=== PATIENT | female | born 1945 | race Hispanic/Latino ===

== ENCOUNTER 2017-11-19 11:08 | Inpatient (IN) | payer MEDICARE ==
[~2017-11-19] VITALS: Ht 144.8 cm; Wt 83.0 kg
[~2017-11-19 11:08] MED LIST: ASPIRIN EC81 MG PO; ATORVASTATIN CA20 MG PO; BACID PO; CLONIDINE HCL0.1 MG PO; FENOFIBRATE PO; GABAPENTIN300 MG PO; GLIMEPIRIDE1 MG PO; LISINOPRIL40 MG PO; LOSARTAN POTAS100 MG PO; LOVASTATIN40 MG PO; NIFEDIPINE ER30 M1 PO; PRESERVISION T1 EACH PO; ULTRAM 50MG50 MG PO; Z DIFLUCAN PO; Z.0.CEFTIN500 MG PO; Z.0.CRESTOR40 MG PO; Z.0.GLYBURIDE2.5 MG PO; Z.0.KLOR-CON M2020 M PO; Z.0.TRIBENZOR 20-51
--- OUTSIDE RECORDS SUMMARY | 2017-11-19 11:13 | XMS REPORT ---
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 Allergies, Adverse Reactions, Alerts This patient has no known allergies or adverse reactions. Medications This patient has no known medications. Results Test Description Test Time Test Comments Text Results Atomic Results Result Comments CT ABDOMEN/PELVIS WO [place] [address] Patient Name: LANA TAN MR #: [id number] : 1945 Age/Sex: 72/F Req #: [id number] Adm Physician: Ordered by: TRENT ADAMS MD Report #: [id number] Location: MRI Room/Bed: Procedure: [id number] CT/CT ABDOMEN/PELVIS WO Exam Date: 06/14/17 Exam Time: 1110 REPORT STATUS: Signed CORRECTION Corrected on: 11/19/2017; Dictated by: Hal Valdivia M.D. on 11/19/2017 at 10: 24 Electronically approved by: Hal Valdivia M.D. on 11/19/2017 at 10:24 PROCEDURE: CT ABDOMEN AND PELVIS WITHOUT CONTRAST TECHNIQUE: The abdomen and pelvis were scanned utilizing a multidetector helical scanner from the diaphragm to the lesser trochanter. No oral or intravenous contrast was administered per renal stone protocol. Coronal and sagittal multiplanar reformations were obtained. COMPARISON: MRI of the abdomen without contrast subsequently performed 06/14/2017. INDICATIONS : CALCULUS OF KIDNEY FINDINGS: ABSENCE OF INTRAVENOUS CONTRAST DECREASES SENSITIVITY FOR DETECTION OF FOCAL LESIONS AND VASCULAR PATHOLOGY. LOWER THORAX: Adjacent 4 and 5 mm nodules along the right major fissure likely represent intrapulmonary lymph nodes. Linear atelectasis in the lower lobes. Coronary artery calcifications.. HEPATOBILIARY: No focal hepatic lesion or intrahepatic biliary ductal dilatation. Large radiopaque gallbladder calculi. SPLEEN: No splenomegaly. 1.6 centimeter hypoattenuating lesion in the posterolateral spleen has average internal attenuation 30 Hounsfield units. PANCREAS: No focal mass or ductal dilatation. ADRENALS: 3.4 cm ovoid nodule in the medial limb of the left adrenal gland has average internal attenuation -1 Hounsfield unit. 2.7 cm low attenuation nodule in the medial limb of the right adrenal gland has average internal attenuation -1 Hounsfield unit. KIDNEYS/URETERS: No hydronephrosis. Punctate bilateral nonobstructing renal calculi. 4.3 cm exophytic, macroscopic fat containing mass projecting from the interpolar region of the left kidney. Scattered low attenuation lesions, all of which have average internal attenuation less than 20 Hounsfield units, throughout the kidneys. The largest left-sided lesion measures 2.7 cm projecting from the upper pole. The largest right-sided lesion appears 5.6 cm, projecting exophytically from the lower pole. No ureteral or bladder calculi. PELVIC ORGANS/BLADDER: The urinary bladder is unremarkable. The right ovary is prominent for age, measuring 4.7 x 4.3 cm. Left ovary appears normal. The uterus is not identified and has likely been removed. PERITONEUM / RETROPERITONEUM: No ascites. No pneumoperitoneum. LYMPH NODES: No pelvic sidewall, retroperitoneal , or mesenteric lymphadenopathy. VESSELS: Atherosclerotic calcification of the abdominal aorta and major branch vessels without aneurysmal dilatation. Evaluation is otherwise limited in the absence of intravenous contrast. GI TRACT: The large bowel shows no distention or wall thickening. There are innumerable sigmoid diverticula without adjacent inflammatory change. The appendix is normal. There is no small bowel dilatation to suggest obstruction. BONES AND SOFT TISSUES: Postsurgical changes of the anterior abdominal wall. Partially visualized asymmetry in the right breast measures 1.9 cm as seen on series 3 image 2. Otherwise no focal soft tissue abnormalities. No osseous destructive lesions. Multilevel degenerative disc disease and degenerative facet arthropathy of the lumbar spine with associated scoliotic curvature. IMPRESSION: Small bilateral nonobstructing renal calculi. 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 Scattered bilateral renal cysts as above. Benign bilateral adrenal adenomas. Cholelithiasis. Large bowel diverticulosis without evidence of diverticulitis. Prominent right ovary for age. Pelvic ultrasound is suggested to evaluate for presence of adnexal mass. Right fissural pulmonary nodules likely represent intrapulmonary lymph nodes. A CT scan of the chest without contrast is suggested in one year to assess for stability if the patient has a history of tobacco use or is at high risk of malignancy. Atherosclerotic vascular disease. Focal asymmetry in the right breast should be correlated with mammography. 1.6 cm indeterminate hypoattenuating splenic lesion may represent a hemangioma. Refer to the report for MRI of the abdomen subsequently performed for further details. Dictated by: Douglas Jay M.D. on 2016 at 11:56 Electronically approved by: Douglas Jay M.D. on 2016 at 11:56 Dictated By: HAL VALDIVIA MD 1024 Transcribed By: TAISHA on 11/19/17 1024 COPY TO: TRENT ADAMS MD
[2017-11-19] MEDS ORDERED: CEFAZOLIN SOD 1 GM VIAL ONE (11:37)
--- NOTE | 2017-11-19 12:12 | Diagnostic Imaging Report ---
PROCEDURE: Frontal and lateral views of the chest. COMPARISON: None. INDICATIONS: PRE-OP, RENAL SURGERY. DENIES CHEST COMPLAINTS FINDINGS: Lines/tubes: None. Lungs: The lungs are well inflated and clear. There is no evidence of pneumonia or pulmonary edema. Pleura: There is no pleural effusion or pneumothorax. Mild blunting of the right costophrenic angle is likely related to scarring. Heart and mediastinum: Normal heart size. Tortuous, atherosclerotic thoracic aorta. Small hiatal hernia is likely present. Bones: No acute bony abnormality. Multilevel degenerative changes of the thoracic spine. IMPRESSION: 1. No acute cardiopulmonary disease. Dictated by: Luis Em M.D. on 11/19/2017 at 12:13 Electronically approved by: Luis Em M.D. on 11/19/2017 at 12:13
[2017-11-19] MEDS ORDERED: GELATIN SPONGE SZ 100 ONE (12:27)
[2017-11-19] MEDS ORDERED: MANNITOL 25% 12.5GM/50ML 50 ML ONE (12:27)
[2017-11-19 12:39] LABS: BASOPHILS % 0.3 % (0.0-1.0); EOSINOPHILS # (AUTO) 0.1 (0.0-0.4); EOSINOPHILS % 0.8 % (0.0-6.0); HEMOGLOBIN 12.2 g/dL (12.0-16.0); LYMPHOCYTES # (AUTO) 1.8 (1.0-3.2); LYMPHOCYTES % 15.5 % (18.0-39.1); MEAN CORPUSCULAR HEMOGLOBIN 31.6 pg (28-32); MEAN CORPUSCULAR HGB CONC 33.9 g/dL (31-35); MEAN CORPUSCULAR VOLUME 93.3 fL (81-99); MONOCYTES # (AUTO) 0.5 (0.2-0.8); MONOCYTES % 3.9 % (4.4-11.3); NEUTROPHILS # (AUTO) 9.1 (2.1-6.9); NEUTROPHILS % 77.8 % (38.7-80.0); PLATELET COUNT 162 x10e3/uL (140-360); RED BLOOD COUNT 3.86 x10e6/uL (3.6-5.1)
[2017-11-19 12:55] LABS: ANION GAP 15.2 mmol/L (8-16); CALCIUM 9.5 mg/dL (8.4-10.2); CREATININE, SERUM 2.62 mg/dL (0.57-1.11); POTASSIUM 4.2 mmol/L (3.5-5.1)
[2017-11-19] MEDS: D5.45%NS/KCL 20MEQ 1,000 ML IV SCH ×2 (15:38→23:38)
[2017-11-19] MEDS: MORPHINE SULFATE 1 MG/ML 30ML PCA IV PRN ×2 (15:40→22:23)
[2017-11-19] MEDS ORDERED: DIPHENHYDRAMINE HCL INJ 50 MG/ML VIAL IM PRN (15:45)
[2017-11-19] MEDS: SODIUM CHLORIDE 0.9% 250ML IRRIG IR SCH ×2 (15:45→20:26)
[2017-11-19] MEDS ORDERED: ONDANSETRON HCL INJ 2 MG/ML VIAL IV PRN (15:45)
[2017-11-19] MEDS ORDERED: NALOXONE HCL INJ 0.4 MG/ML AMP IV PRN (15:45)
[2017-11-19] MEDS ORDERED: ACETAMINOPHEN 1000 MG/100 ML IV PRN (15:45)
--- NOTE | 2017-11-19 16:30 | Diagnostic Imaging Report ---
PROCEDURE: A single AP view of the chest. COMPARISON: Same day chest radiograph INDICATIONS: POST OP NEPHRECTOMY. R/O PNEUMOTHORAX FINDINGS: Lines/tubes: Enteric tube has its tip in the stomach. There are surgical clips in the left upper abdomen. Lungs: The lung volumes are low. There are streaky opacities in the right upper lobe. Pleura: There is no pleural effusion or pneumothorax. Heart and mediastinum: The heart and the mediastinum are unremarkable. Bones: No acute bony abnormality. IMPRESSION: No evidence of pneumothorax. Streaky opacities in the right upper lobe may represent atelectasis or aspiration. Dictated by: Luis Em M.D. on 11/19/2017 at 16:31 Electronically approved by: Luis Em M.D. on 11/19/2017 at 16:31
[2017-11-19] MEDS: DOCUSATE SODIUM 100 MG CAP PO SCH (17:00)
[2017-11-19 17:45] VITALS: BP 156/84
[2017-11-19 17:46] VITALS: BP 156/84
[2017-11-19 18:00] VITALS: BP 153/75
[2017-11-19] MEDS ORDERED: FENTANYL CITRATE/PF 100MCG/2 ML INJ ONE (18:33)
[2017-11-19] MEDS ORDERED: MIDAZOLAM HCL 2 MG/2 ML VIAL ONE (18:33)
[2017-11-19 20:00] VITALS: BP 160/92
[2017-11-19] MEDS ORDERED: CEFAZOLIN SOD 1 GM/NS 50ML 50 ML IV SCH (22:00)
[2017-11-19] MEDS: CEFAZOLIN SOD 1 GM VIAL IV SCH (22:19)
[2017-11-20] VITALS (7 sets, daily range): BP systolic 148–171; BP diastolic 63–86
[2017-11-20] MEDS: SODIUM CHLORIDE 0.9% 250ML IRRIG IR SCH ×3 (00:04→08:45)
[2017-11-20 06:36] LABS: BASOPHILS % 0.2 % (0.0-1.0); HEMATOCRIT 30.1 % (34.2-44.1); HEMOGLOBIN 9.8 g/dL (12.0-16.0); LYMPHOCYTES # (AUTO) 0.7 (1.0-3.2); LYMPHOCYTES % 6.3 % (18.0-39.1); MEAN CORPUSCULAR HEMOGLOBIN 31.7 pg (28-32); MEAN CORPUSCULAR HGB CONC 32.6 g/dL (31-35); MEAN CORPUSCULAR VOLUME 97.4 fL (81-99); MONOCYTES # (AUTO) 1.1 (0.2-0.8); MONOCYTES % 9.3 % (4.4-11.3); NEUTROPHILS # (AUTO) 9.7 (2.1-6.9); NEUTROPHILS % 83.4 % (38.7-80.0); PLATELET COUNT 190 x10e3/uL (140-360); RED BLOOD COUNT 3.09 x10e6/uL (3.6-5.1); RED CELL DISTRIBUTION WIDTH 14.2 % (11.7-14.4)
[2017-11-20] MEDS: CEFAZOLIN SOD 1 GM VIAL IV SCH ×3 (07:02→21:44)
[2017-11-20 07:13] LABS: ANION GAP 15.3 mmol/L (8-16); CALCIUM 8.3 mg/dL (8.4-10.2); CREATININE, SERUM 2.85 mg/dL (0.57-1.11); POTASSIUM 5.3 mmol/L (3.5-5.1)
[2017-11-20] MEDS: D5.45%NS/KCL 20MEQ 1,000 ML IV SCH (07:38)
[2017-11-20] MEDS: DOCUSATE SODIUM 100 MG CAP PO SCH ×2 (08:45→17:05)
[2017-11-20] MEDS ORDERED: DEXTROSE 5%/0.45% SOD CHL 1,000 ML IV ONE (09:44)
[2017-11-20] MEDS: DEXTROSE 5%/0.45% SOD CHL 1,000 ML IV SCH ×2 (09:50→17:16)
[2017-11-20] MEDS: MORPHINE SULFATE 1 MG/ML 30ML PCA IV PRN (11:49)
[2017-11-20] MEDS ORDERED: HYDRALAZINE HCL 20 MG/ML VIAL IV PRN (12:15)
[2017-11-20] MEDS ORDERED: DEXTROSE 50% SYRINGE 50 ML IV PRN (12:15)
[2017-11-20] MEDS ORDERED: ACETAMINOPHEN 325 MG SUPP PR PRN (12:15)
[2017-11-20] MEDS ORDERED: SOD POLYSTYRENE SULFONATE SUSP 15 GM/60 ML BTL PO NR (12:30)
[2017-11-20] MEDS ORDERED: SOD POLYSTYRENE SULFONATE SUSP 15 GM/60 ML BTL PR NR (12:30)
[2017-11-20] MEDS ORDERED: CLONIDINE HCL 0.1 MG TAB PO SCH (17:00)
[2017-11-20] MEDS: INSULIN LISPRO 100 UNIT/1 ML 3ML VIAL SQ SCH (17:36)
[2017-11-20] MEDS ORDERED: EPHEDRINE SULFATE INJ 50 MG/10 ML SYR ONE (19:42)
[2017-11-20] MEDS ORDERED: NEOSTIGMINE 5 MG/5ML SYR ONE (19:42)
[2017-11-20] MEDS ORDERED: ROCURONIUM BROMIDE 10 MG/ML 5ML VIAL ONE (19:42)
[2017-11-20] MEDS ORDERED: ONDANSETRON HCL INJ 2 MG/ML VIAL ONE (19:42)
[2017-11-20] MEDS ORDERED: GLYCOPYRROLATE INJ 1MG/ 5 ML SYR ONE (19:42)
[2017-11-20] MEDS ORDERED: LIDOCAINE HCL 2% LOCAL INJ 5 ML SDV VIAL INJ ONE (19:42)
[2017-11-20] MEDS ORDERED: DEXAMETHASONE SOD PHOS INJ 4 MG/ML VIAL ONE (19:42)
[2017-11-20] MEDS ORDERED: SEVOFLURANE INHAL SOLN 250 ML PEN BTL ONE (19:42)
[2017-11-20] MEDS ORDERED: PROPOFOL IV EMULSION 10 MG/ML 20 ML VIAL ONE (19:42)
[2017-11-20] MEDS ORDERED: ATORVASTATIN 20 MG TAB PO SCH (21:00)
[2017-11-20] MEDS: ATORVASTATIN 40 MG TAB PO SCH (21:44)
[2017-11-20] MEDS: ONDANSETRON HCL INJ 2 MG/ML VIAL IV PRN (22:15)
[2017-11-21] MEDS: INSULIN LISPRO 100 UNIT/1 ML 3ML VIAL SQ SCH ×4 (01:28→17:57)
[2017-11-21] MEDS: DEXTROSE 5%/0.45% SOD CHL 1,000 ML IV SCH ×3 (02:56→16:50)
[2017-11-21 04:00] VITALS: BP_SYST 156; BP_SYST 159; BP_DIAS 77; BP_DIAS 78
[2017-11-21] MEDS: CEFAZOLIN SOD 1 GM VIAL IV SCH ×3 (04:26→20:38)
[2017-11-21 06:12] LABS: BASOPHILS % 0.3 % (0.0-1.0); EOSINOPHILS % 0.1 % (0.0-6.0); HEMATOCRIT 30.9 % (34.2-44.1); HEMOGLOBIN 9.7 g/dL (12.0-16.0); LYMPHOCYTES # (AUTO) 0.9 (1.0-3.2); LYMPHOCYTES % 6.3 % (18.0-39.1); MEAN CORPUSCULAR HEMOGLOBIN 31.1 pg (28-32); MEAN CORPUSCULAR HGB CONC 31.4 g/dL (31-35); MONOCYTES # (AUTO) 1.3 (0.2-0.8); MONOCYTES % 9.5 % (4.4-11.3); NEUTROPHILS # (AUTO) 11.3 (2.1-6.9); NEUTROPHILS % 80.9 % (38.7-80.0); PLATELET COUNT 167 x10e3/uL (140-360); RED BLOOD COUNT 3.12 x10e6/uL (3.6-5.1); RED CELL DISTRIBUTION WIDTH 14.6 % (11.7-14.4)
[2017-11-21 06:31] LABS: ANION GAP 12.9 mmol/L (8-16); CREATININE, SERUM 2.81 mg/dL (0.57-1.11); POTASSIUM 4.9 mmol/L (3.5-5.1)
[2017-11-21 06:49] LABS: FREE T4 (FREE THYROXINE) 1.44 ng/dL (0.9-1.8); THYROID STIMULATING HORMONE 0.473 uIU/mL (0.350-4.940)
[2017-11-21] MEDS: CLONIDINE HCL 0.1 MG TAB PO SCH ×2 (10:01→16:50)
[2017-11-21] MEDS: DOCUSATE SODIUM 100 MG CAP PO SCH ×2 (10:01→16:50)
[2017-11-21] MEDS: NIFEDIPINE CR 30 MG TAB PO SCH (10:02)
[2017-11-21 10:57] LABS: CLARITY,URINE CLOUDY (CLEAR); COLOR,URINE YELLOW (YELLOW); LEUKOCYTE ESTERASE ,URINE NEGATIVE (NEGATIVE); NITRITE,URINE NEGATIVE (NEGATIVE); PROTEIN,URINE DIPSTICK 3+ (NEGATIVE)
[2017-11-21 10:58] LABS: BILIRUBIN,URINE NEGATIVE (NEGATIVE); KETONES,URINE NEGATIVE (NEGATIVE); URINE UROBILINOGEN 0.2 mg/dL (0.2 - 1)
[2017-11-21 10:59] LABS: AMORPHOUS SEDIMENT,URINE RARE (FEW); EPITHELIAL CELLS,URINE RARE /LPF
[2017-11-21 11:00] LABS: YEAST,URINE FEW
[2017-11-21] MEDS ORDERED: DIPHENHYDRAMINE HCL INJ 50 MG/ML VIAL IV PRN (11:00)
[2017-11-21 11:01] LABS: BACTERIA,URINE FEW /HPF
[2017-11-21] MEDS: GUAIFENESIN 600 MG TAB PO SCH ×2 (12:57→17:57)
[2017-11-21] MEDS: LABETALOL HCL 5 MG/ML 20ML VIAL IV PRN ×2 (13:19→20:38)
[2017-11-21 13:49] VITALS: BP 164/76
[2017-11-21 13:50] VITALS: BP 164/76
--- NOTE | 2017-11-21 15:16 | Diagnostic Imaging Report ---
PROCEDURE: A single AP view of the chest. COMPARISON: Chest radiograph 11/19/2017 INDICATIONS: PNEUMONIA FINDINGS: Lines/tubes: Interval removal of an enteric tube. Lungs: The lungs are poorly inflated. Resolution of the streaky opacities in the right upper lobe. New small retrocardiac opacity. Pleura: There is no pleural effusion or pneumothorax. Heart and mediastinum: Aortic arch calcifications. The heart and the mediastinum are otherwise unremarkable. Bones: No acute bony abnormality. Upper abdomen: Surgical clips overlie the left upper quadrant. IMPRESSION: 1. Resolution of the right upper lobe streaky opacities suggesting atelectasis. 2. Small retrocardiac opacity may represent atelectasis given low lung volumes, developing pneumonia, or aspiration. Consider repeat two-view chest radiograph with improved inspiratory effort. Dictated by: Ervin Frederick M.D. on 11/21/2017 at 15:17 Electronically approved by: Ervin Frederick M.D. on 11/21/2017 at 15:17
[2017-11-21 16:16] VITALS: BP 178/73
[2017-11-21 20:00] VITALS: BP 169/71
[2017-11-21 20:12] VITALS: BP 169/71
[2017-11-21] MEDS: ATORVASTATIN 40 MG TAB PO SCH (20:38)
[2017-11-21] MEDS ORDERED: ATORVASTATIN 20 MG TAB PO SCH (21:00)
[2017-11-22] VITALS (8 sets, daily range): BP systolic 119–174; BP diastolic 56–74
[2017-11-22] MEDS: GUAIFENESIN 600 MG TAB PO SCH ×4 (00:33→17:33)
[2017-11-22] MEDS: LABETALOL HCL 5 MG/ML 20ML VIAL IV PRN (00:33)
[2017-11-22] MEDS: INSULIN LISPRO 100 UNIT/1 ML 3ML VIAL SQ SCH ×5 (00:48→21:30)
[2017-11-22] MEDS: DEXTROSE 5%/0.45% SOD CHL 1,000 ML IV SCH ×2 (02:26→12:55)
[2017-11-22] MEDS: CEFAZOLIN SOD 1 GM VIAL IV SCH ×3 (04:51→19:40)
[2017-11-22 06:40] LABS: BASOPHILS % 0.3 % (0.0-1.0); EOSINOPHILS # (AUTO) 0.1 (0.0-0.4); EOSINOPHILS % 0.5 % (0.0-6.0); HEMATOCRIT 25.9 % (34.2-44.1); HEMOGLOBIN 8.2 g/dL (12.0-16.0); LYMPHOCYTES # (AUTO) 0.6 (1.0-3.2); LYMPHOCYTES % 6.1 % (18.0-39.1); MEAN CORPUSCULAR HEMOGLOBIN 31.4 pg (28-32); MEAN CORPUSCULAR HGB CONC 31.7 g/dL (31-35); MEAN CORPUSCULAR VOLUME 99.2 fL (81-99); MONOCYTES # (AUTO) 0.8 (0.2-0.8); MONOCYTES % 8.3 % (4.4-11.3); NEUTROPHILS # (AUTO) 8.2 (2.1-6.9); NEUTROPHILS % 81.9 % (38.7-80.0); PLATELET COUNT 143 x10e3/uL (140-360); RED BLOOD COUNT 2.61 x10e6/uL (3.6-5.1); RED CELL DISTRIBUTION WIDTH 14.6 % (11.7-14.4)
[2017-11-22 06:56] LABS: ANION GAP 12.8 mmol/L (8-16); CALCIUM 8.7 mg/dL (8.4-10.2); CREATININE, SERUM 2.48 mg/dL (0.57-1.11); POTASSIUM 4.8 mmol/L (3.5-5.1)
[2017-11-22] MEDS: NIFEDIPINE CR 30 MG TAB PO SCH (08:11)
[2017-11-22] MEDS: DOCUSATE SODIUM 100 MG CAP PO SCH ×2 (08:11→17:33)
[2017-11-22] MEDS: CLONIDINE HCL 0.1 MG TAB PO SCH (08:11)
[2017-11-22] MEDS: CLONIDINE HCL 0.2 MG TAB PO SCH ×2 (08:22→17:33)
[2017-11-22] MEDS ORDERED: CLONIDINE HCL 0.1 MG TAB PO ONE (08:30)
[2017-11-22] MEDS ORDERED: BISACODYL 10 MG SUPP PR PRN (08:45)
[2017-11-22] MEDS ORDERED: BISACODYL 10 MG SUPP PR NR (09:00)
[2017-11-22] MEDS: ACETAMINOPHEN/CODEINE 300MG - 30MG TAB PO PRN (09:37)
[2017-11-22 11:35] LABS: ANISOCYTOSIS SLIGHT; BAND NEUTROPHILS % (MANUAL) 1 %; EOSINOPHILS % (MANUAL) 1 % (0-7); HYPOCHROMASIA SLIGHT; LYMPHOCYTES % (MANUAL) 5 % (19-48); MONOCYTES % (MANUAL) 7 % (3.4-9.0); MYELOCYTES % (MANUAL) 3 % (0-0); NEUTROPHILS % (MANUAL) 83 % (40-74); PLATELET ESTIMATE SLIGHTLY DECREASED; PLATELET MORPHOLOGY COMMENT FEW LARGE
[2017-11-22 11:36] LABS: RBC MORPHOLOGY COMMENT NORMAL
[2017-11-22] MEDS: ATORVASTATIN 40 MG TAB PO SCH (21:30)
[2017-11-23] VITALS (7 sets, daily range): BP systolic 112–158; BP diastolic 55–73
[2017-11-23] MEDS: GUAIFENESIN 600 MG TAB PO SCH ×4 (00:49→17:27)
[2017-11-23] MEDS: CEFAZOLIN SOD 1 GM VIAL IV SCH ×3 (05:00→21:26)
[2017-11-23] MEDS: DEXTROSE 5%/0.45% SOD CHL 1,000 ML IV SCH ×2 (05:09→17:15)
[2017-11-23 06:10] LABS: BASOPHILS % 0.4 % (0.0-1.0); EOSINOPHILS # (AUTO) 0.2 (0.0-0.4); EOSINOPHILS % 2.6 % (0.0-6.0); HEMATOCRIT 25.2 % (34.2-44.1); HEMOGLOBIN 8.1 g/dL (12.0-16.0); LYMPHOCYTES # (AUTO) 0.8 (1.0-3.2); LYMPHOCYTES % 10.7 % (18.0-39.1); MEAN CORPUSCULAR HEMOGLOBIN 31.3 pg (28-32); MEAN CORPUSCULAR HGB CONC 32.1 g/dL (31-35); MEAN CORPUSCULAR VOLUME 97.3 fL (81-99); MONOCYTES # (AUTO) 0.7 (0.2-0.8); MONOCYTES % 9.7 % (4.4-11.3); NEUTROPHILS # (AUTO) 5.4 (2.1-6.9); PLATELET COUNT 137 x10e3/uL (140-360); RED BLOOD COUNT 2.59 x10e6/uL (3.6-5.1); RED CELL DISTRIBUTION WIDTH 14.1 % (11.7-14.4)
[2017-11-23 06:29] LABS: ANION GAP 11.7 mmol/L (8-16); CALCIUM 8.6 mg/dL (8.4-10.2); CREATININE, SERUM 2.34 mg/dL (0.57-1.11); POTASSIUM 3.7 mmol/L (3.5-5.1)
[2017-11-23 07:17] LABS: EOSINOPHILS % (MANUAL) 1 % (0-7); LYMPHOCYTES % (MANUAL) 10 % (19-48); MONOCYTES % (MANUAL) 8 % (3.4-9.0); MYELOCYTES % (MANUAL) 1 % (0-0); NEUTROPHILS % (MANUAL) 80 % (40-74); PLATELET ESTIMATE SLIGHTLY DECREASED; PLATELET MORPHOLOGY COMMENT NORMAL; RBC MORPHOLOGY COMMENT NORMAL
[2017-11-23] MEDS: INSULIN LISPRO 100 UNIT/1 ML 3ML VIAL SQ SCH ×4 (08:46→21:28)
[2017-11-23] MEDS: DOCUSATE SODIUM 100 MG CAP PO SCH ×2 (08:46→17:27)
[2017-11-23] MEDS: CLONIDINE HCL 0.2 MG TAB PO SCH ×2 (08:46→17:25)
[2017-11-23] MEDS: NIFEDIPINE CR 30 MG TAB PO SCH (08:46)
[2017-11-23] MEDS: FLUCONAZOLE 100 MG TAB PO SCH (11:16)
[2017-11-23] MEDS ORDERED: MAGNESIUM SULF 1GRAM/DEXTROSE 100 ML IV ONE (14:00)
[2017-11-23] MEDS: ACETAMINOPHEN/CODEINE 300MG - 30MG TAB PO PRN (17:20)
[2017-11-23] MEDS: FAMOTIDINE 20 MG TAB PO SCH (17:25)
--- NOTE | 2017-11-23 20:25 | Consultation ---
DATE OF CONSULTATION: November 23, 2017 REQUESTING PHYSICIAN: Dr. Ambriz REASON FOR CONSULTATION: CKD. Thanks for allowing us to participate in Ms. Gonzalez's case. This is a 72-year-old female with a history of CKD, 4, baseline creatinine around 2.5 to 2.7. Underwent partial left nephrectomy. Pathology is still pending. No real complications. Hemoglobin did come down to 8. Chest x-ray was not showing any fluid overload, but there was some concern for developing pneumonia earlier. She denies dyspnea, trouble breathing or coughing at this time. She has some nausea. She is on half NS. Sodium has been dropping. Serum CO2 is low. PAST HISTORY: CKD, 4, hypertension, type 2 diabetes, presumed cause of the CKD. MEDICATIONS 1. Insulin. 2. Half NS. 3. Beta carotene. 4. Clonidine 0.1 mg b.i.d. 5. Losartan 100 mg a day, which is on hold now. 6. Tylenol with codeine. 7. Colace. 8. Fluconazole 100 mg daily. 9. p.r.n. 10. Nifedipine 30 mg a day continued. SOCIAL HISTORY: Does not drink alcohol or smoke. FAMILY HISTORY: Hypertension. REVIEW OF SYSTEMS CONSTITUTIONAL: No fever or chills. GI: Had some nausea and vomiting earlier. She will try to eat later today. CARDIAC: Denying angina or syncope. RESPIRATORY: Denied cough or hemoptysis. NEURO: Feels some weakness and fatigue. SKIN: Bruising near the surgical site as expected. Has joseline in the left flank. The rest of the review is negative. PHYSICAL EXAMINATION GENERAL: Sitting up in no distress. VITALS: Temperature 98.9, pulse 76, blood pressure 142/62. HEENT: Atraumatic. NECK: No JVD. CHEST: Clear. Bilateral breath sounds equal. CARDIAC: Normal heart tones. Rhythm is regular. ABDOMEN: Soft. Joseline in the left flank. Minimal ecchymosis near the scar. EXTREMITIES: No edema. NEURO: Alert and appropriate. Speech is normal. JOINTS: No swelling on exposed joints. Sodium is 131, serum CO2 17, potassium 3.7, creatinine 2.34, BUN 29. Hemoglobin is 8. She started off at 12.2. UA 2 days ago was showing specific gravity of 1.025. Some blood and protein in the urine, as well as a few granular casts. ASSESSMENT 1. Chronic kidney disease, 4: Appears to be at baseline or slightly better perhaps from removal of the ARB. 2. Hyponatremia: She has been on hypotonic fluids. Volume status reasonable. Metabolic acidosis probably from the chloride. PLAN: After this bag, stop IV fluids. Add p.o. bicarbonate. A.m. chemistries. If creatinine is still in the same range, she can probably go home and have outpatient followup. As expected, we do expect some hypertrophy of the remaining renal mass to take over. As of now, she does not appear to have suffered any significant loss of the GFR. Continue to monitor hemoglobin for any blood loss, although that does not appear to be the case. She does not require a transfusion. Avoid nephrotoxins, such as NSAIDs. Will follow along with you. Job#: [id number] ZAID
[2017-11-23] MEDS: ATORVASTATIN 40 MG TAB PO SCH (21:26)
[2017-11-24] MEDS: GUAIFENESIN 600 MG TAB PO SCH ×2 (00:04→05:44)
[2017-11-24 00:11] VITALS: BP 144/67
[2017-11-24 00:39] VITALS: BP 144/67
[2017-11-24 04:00] VITALS: BP 157/68
[2017-11-24] MEDS: CEFAZOLIN SOD 1 GM VIAL IV SCH (04:28)
[2017-11-24] MEDS: ONDANSETRON HCL INJ 2 MG/ML VIAL IV PRN ×2 (04:38→10:30)
[2017-11-24 06:29] LABS: BASOPHILS % 0.3 % (0.0-1.0); EOSINOPHILS # (AUTO) 0.2 (0.0-0.4); EOSINOPHILS % 2.6 % (0.0-6.0); HEMATOCRIT 24.4 % (34.2-44.1); LYMPHOCYTES # (AUTO) 0.3 (1.0-3.2); LYMPHOCYTES % 5.4 % (18.0-39.1); MEAN CORPUSCULAR HEMOGLOBIN 30.9 pg (28-32); MEAN CORPUSCULAR HGB CONC 32.8 g/dL (31-35); MEAN CORPUSCULAR VOLUME 94.2 fL (81-99); MONOCYTES # (AUTO) 0.5 (0.2-0.8); MONOCYTES % 9.2 % (4.4-11.3); NEUTROPHILS # (AUTO) 4.7 (2.1-6.9); NEUTROPHILS % 80.3 % (38.7-80.0); PLATELET COUNT 174 x10e3/uL (140-360); RED BLOOD COUNT 2.59 x10e6/uL (3.6-5.1); RED CELL DISTRIBUTION WIDTH 13.7 % (11.7-14.4)
[2017-11-24 07:04] LABS: ANION GAP 13.9 mmol/L (8-16); CALCIUM 8.5 mg/dL (8.4-10.2); CREATININE, SERUM 2.29 mg/dL (0.57-1.11); MAGNESIUM 1.5 MG/DL (1.3-2.1); PHOSPHORUS 2.8 MG/DL (2.3-4.7); POTASSIUM 3.9 mmol/L (3.5-5.1)
[2017-11-24 08:01] VITALS: BP 154/67
[2017-11-24 08:45] VITALS: BP 154/67
[2017-11-24] MEDS: CLONIDINE HCL 0.2 MG TAB PO SCH (08:47)
[2017-11-24] MEDS: FAMOTIDINE 20 MG TAB PO SCH (08:47)
[2017-11-24] MEDS: DOCUSATE SODIUM 100 MG CAP PO SCH (08:47)
[2017-11-24] MEDS: NIFEDIPINE CR 30 MG TAB PO SCH (08:47)
[2017-11-24] MEDS: INSULIN LISPRO 100 UNIT/1 ML 3ML VIAL SQ SCH (08:47)
[2017-11-24] MEDS: FLUCONAZOLE 100 MG TAB PO SCH (08:47)
[2017-11-24 08:58] LABS: BAND NEUTROPHILS % (MANUAL) 20 %; EOSINOPHILS % (MANUAL) 1 % (0-7); LYMPHOCYTES % (MANUAL) 4 % (19-48); MONOCYTES % (MANUAL) 1 % (3.4-9.0); MYELOCYTES % (MANUAL) 1 % (0-0); NEUTROPHILS % (MANUAL) 73 % (40-74); PLATELET ESTIMATE ADEQUATE; PLATELET MORPHOLOGY COMMENT NORMAL; RBC MORPHOLOGY COMMENT NORMAL
[2017-11-24] MEDS ORDERED: SODIUM BICARBONATE 650 MG TAB PO SCH (09:00)
[2017-11-24] MEDS ORDERED: SODIUM BICARBO650 MG PO (09:53)
[2017-11-24] MEDS ORDERED: COLACE100 M1 PO (09:53)
[2017-11-24] MEDS ORDERED: CATAPRES0.2 MG PO (09:53)
[2017-11-24] MEDS ORDERED: FAMOTIDINE20 MG PO (09:53)
[2017-11-24] MEDS ORDERED: REGLAN10 MG PO (09:53)
[2017-11-24] MEDS ORDERED: MUCINEX600 MG PO (09:53)
--- NOTE | 2017-11-24 19:01 | Discharge Summary ---
ADMISSION DIAGNOSES 1. Left renal mass, status post left partial nephrectomy. 2. Type 2 diabetes. 3. Hypertension. 4. Hyperkalemia. 5. Hyperlipidemia. 6. Chronic kidney disease. DISCHARGE DIAGNOSES 1. Left renal mass, status post left partial nephrectomy. 2. Type 2 diabetes. 3. Hypertension. 4. Hyperkalemia. 5. Hyperlipidemia. 6. Chronic kidney disease. 7. Hyponatremia. 8. Candiduria. 9. Anemia. HISTORY: Patient has a history of type 2 diabetes, hypertension, hyperlipidemia, bilateral OA of ankles and feet, and obesity. Surgical history of bilateral carpal tunnel surgery and hysterectomy. HOSPITAL COURSE: A 72-year-old female presents after her PCP ordered a renal ultrasound and MRI due to renal insufficiency around May 2017. She presents for partial left nephrectomy due to left renal mass found on the ultrasound and MRI. Urology was consulted, who completed the partial nephrectomy. Patient was placed on WEATHER FORCASTER pump, kept n.p.o., and had a DAPHNE drain in place. For her diabetes and hypertension, patient was resumed on home medications. After the nephrectomy, the creatinine continued to trend down. On admission her creatinine was 2.62. On discharge her creatinine was 2.29. Per Nephrology, she was placed on sodium bicarb b.i.d. temporarily. At time of discharge, they wanted to discontinue that medication and just have the patient take a teaspoon of baking soda with water daily. Chest x-ray showed no acute cardiopulmonary process. Blood cultures were negative. Urine culture showed yeast. Patient was started on fluconazole. During hospitalization patient's clonidine had to be increased to 0.2 mg b.i.d. She was also started on Mucinex for congestion and cough and Reglan for appetite. Per the nurses, the patient is very self-limiting and does not walk very much and does not do much for herself. Patient will discharge home with family as she walks fine; she just chooses not to walk very much. She will follow up with Nephrology and Urology as needed and PCP in 1 to 2 weeks. DAPHNE drain was discontinued prior to discharge. Patient has joseline in her left flank with minimal bruising. She is toileting okay, eating okay, ambulating okay. Dictated by: Klarissa Santillan NP KASHMIR KIM MD Job#: [id number] EV
== END 2017-11-24 12:15 | disposition home or self-care (01) | DRG 660 ==
LOC: OR 11:08 → IMCU 15:40 → MED/SURG 11-21 12:21
PROVIDERS: ADMIT Internal Medicine; ATTEND Internal Medicine
PROC: 0TB10ZZ Excision of Left Kidney, Open Approach (ICD-10-PCS; principal; 2017-11-19 13:00)
DX: N28.89 Other specified disorders of kidney and ureter (principal); E87.1 Hypo-osmolality and hyponatremia; E87.2 Acidosis; E11.22 Type 2 diabetes mellitus with diabetic chronic kidney disease; E87.5 Hyperkalemia; B37.49 Other urogenital candidiasis; I12.9 Hypertensive chronic kidney disease with stage 1 through stage 4 chronic kidney disease, or unspecified chronic kidney disease; N18.4 Chronic kidney disease, stage 4 (severe); Z79.51 Long term (current) use of inhaled steroids; D64.9 Anemia, unspecified; E83.42 Hypomagnesemia
CPT/HCPCS: 36415; 71045; 71046; 80048; 81001; 82948; 83036; 83735; 83880; 84100; 84439; 84443; 85025; 86850; 86900; 86920; 87040; 87086; 88304; 88305; 88307; 88329; 88342; 93005; 96372; 97139; J0360; J0690; J1100; J2001; J2150; J2250; J2270; J2405; J3475

== ENCOUNTER → 2018-09-17 | Outpatient (CLI) | payer MEDICARE ==
[~2018-09-17] MED LIST changes: +ASPIR 8181 MG PO; +ASPIRIN325 MG PO; +BENADRYL25 M1 PO; +CATAPRES0.2 MG PO; +COLACE100 M1 PO; +FAMOTIDINE20 MG PO; +FENOFIBRATE145 MG PO; +FUROSEMIDE40 MG PO; +GLIMEPIRIDE2 MG PO; +HYDROXYZINE HCL25 MG PO; +MUCINEX600 MG PO; +NICODERM CQ1 EACH TOP; +OMEPRAZOLE40 MG PO; +PROTONIX40 MG/ML PO; +REGLAN10 MG PO; +SODIUM BICARBO650 MG PO
[2018-09-17 17:50] LABS: BASOPHILS % 0.3 % (0.0-1.0); EOSINOPHILS # (AUTO) 0.2 (0.0-0.4); EOSINOPHILS % 1.6 % (0.0-6.0); HEMATOCRIT 39.1 % (34.2-44.1); HEMOGLOBIN 12.1 g/dL (12.0-16.0); LYMPHOCYTES # (AUTO) 1.7 (1.0-3.2); LYMPHOCYTES % 13.6 % (18.0-39.1); MEAN CORPUSCULAR HEMOGLOBIN 29.3 pg (28-32); MEAN CORPUSCULAR HGB CONC 30.9 g/dL (31-35); MEAN CORPUSCULAR VOLUME 94.7 fL (81-99); MONOCYTES # (AUTO) 0.6 (0.2-0.8); MONOCYTES % 4.9 % (4.4-11.3); NEUTROPHILS # (AUTO) 9.5 (2.1-6.9); NEUTROPHILS % 78.7 % (38.7-80.0); PLATELET COUNT 304 x10e3/uL (140-360); RED BLOOD COUNT 4.13 x10e6/uL (3.6-5.1); RED CELL DISTRIBUTION WIDTH 16.1 % (11.7-14.4)
[2018-09-17 18:01] LABS: INR 0.96; PROTHROMBIN TIME 13.7 seconds (11.9-14.5)
[2018-09-17 18:08] LABS: ANION GAP 20.5 mmol/L (8-16); CREATININE, SERUM 8.45 mg/dL (0.57-1.11); POTASSIUM 4.5 mmol/L (3.5-5.1)
--- OUTSIDE RECORDS SUMMARY | 2018-09-19 06:44 | XMS REPORT | Summary of Care ---
Author Author [facility] [place] Organization [facility] [place] Address Unknown Phone Unavailable Encounter HQ Encntr_alias(FIN) [id number] Date(s): 01/02/17 - 01/02/17 [facility] [place] [address] [place] [phone] Discharge Disposition: Home or Self Care Attending Physician: Francisco Diana MD Vital Signs No data available for this section Problem List No data available for this section Allergies, Adverse Reactions, Alerts No data available for this section Medications No data available for this section Results No data available for this section Immunizations No data available for this section Procedures No data available for this section Social History No data available for this section Assessment and Plan No data available for this section
--- OUTSIDE RECORDS SUMMARY | 2018-09-19 06:44 | XMS REPORT | Summary of Care ---
Author Author [facility] [place] Organization [facility] [place] Address Unknown Phone Unavailable Encounter HQ Rodrintr_dacia(FIN) [id number] Date(s): 03/09/17 - 03/09/17 [facility] [place] [address] [place] [phone] Discharge Disposition: Home or Self Care Attending Physician: Kavin Pierre MD Vital Signs No data available for [...]
--- OUTSIDE RECORDS SUMMARY | 2018-09-19 06:44 | XMS REPORT | Summary of Care ---
Author Author [facility] [place] Organization [facility] [place] Address Unknown Phone Unavailable Encounter HQ Encntr_dacia(FIN) [id number] Date(s): 08/02/16 - 08/02/16 [facility] [place] [address] [place] [address] [phone] Discharge Disposition: Home or Self Care Attending [...]
--- OUTSIDE RECORDS SUMMARY | 2018-09-19 06:44 | XMS REPORT | Summary of Care ---
Author Organization Unknown Address Unknown Phone Unavailable Encounter HQ Encntr_dacia([facility]) [id number] Date(s): 12/23/14 - 12/23/14 [facility] Outpatient Imaging - [address] [address] [[email or web address]] [phone] Discharge Disposition: Home Physician Attending: Kavin Pierre MD Vital Signs No data [...]
--- OUTSIDE RECORDS SUMMARY | 2018-09-19 06:44 | XMS REPORT | Summary of Care ---
Author Organization Unknown Address Unknown Phone Unavailable Encounter HQ Encntr_dacia([facility]) [id number] Date(s): 04/15/14 - 04/15/14 [facility] Outpatient Imaging - [address] [address]- [place] Discharge Disposition: Home Physician Attending: Kavin Pierre MD Reason for Visit 490 - BRONCHITIS NOS Problem List No data available for this section Allergies, Adverse Reactions, Alerts No data available for this section Medications No data available for this section Medications Administered During Your Visit No data available for this section Immunizations No data available for this section
--- NOTE | 2018-09-23 11:04 | Diagnostic Imaging Report ---
PROCEDURE: PLACEMENT OF RIGHT IJ TUNNELED HEMODIALYSIS CATHETER WITH FLUOROSCOPIC GUIDANCE INDICATION: Need for dialysis access. OPERATORS: Kenneth Velasquez MD RADIATION EXPOSURE: Fluoroscopy Time: 0.8 minutes Dose area product (DAP): 49.5 cGycm2 CONSENT: The patient was informed of the nature of the proposed procedure. The purposes, alternatives, risks, and benefits were explained and discussed. All questions were answered and written consent was obtained. ANESTHESIA: Moderate sedation. Continuous hemodynamic monitoring was performing by interventional nursing MEDICATIONS: 15 cc of 1% subcutaneous lidocaine 50 mcg IV Fentanyl and 1 mg IV Versed per nursing administration records. TECHNIQUE: The patient was brought to the angiography suite, and the right neck and upper chest were prepped and draped in standard sterile fashion. All elements of maximal sterile barrier technique were followed including cap and mask, sterile gown, sterile gloves, large sterile sheet, hand hygiene and 2% chlorhexidine for cutaneous antisepsis. Pre-procedure time-out confirmed the patient identity and the procedure to be performed. Ultrasound demonstrated that the right internal jugular was patent and compressible. Using standard sterile technique, 1 % lidocaine was administered subcutaneously for local anesthesia. Under continuous sonographic guidance, the right internal jugular vein was accessed using a 21 G micropuncture needle. The access needle was exchanged for a 5 Fr micropuncture sheath. An 0.035'' Amplatz wire was advanced into the IVC to secure access. The venotomy site was dilated. Appropriate measurements were made using the 8 Fr dilator. Attention was then turned towards the subcutaneous tunnel. After administration of 1% lidocaine subcutaneously for local anesthesia, a 16 Fr x 19 cm Hemosplit hemodialysis catheter was tunneled in an antegrade direction from skin exit site to venotomy site. The dilator was exchanged for the peel-away sheath under direct fluoroscopic visualization. The catheter was then advanced through the peel-away sheath into the superior vena cava. After confirming appropriate position with fluoroscopy the catheter tip in the right atrium, the peel-away sheath was removed, and both lumens aspirated, check flushed, and terminally flushed with 2 cc each of heparin solution (1000 units/cc of heparin). The catheter was secured using 3-0 Ethilon pursestring suture at the catheter exit site and also 3-0 Ethilon sutures at the catheter hub. The venotomy site was closed with subcutaneous Vicryl suture, Dermabond, and steri-strips. Sterile dressings were applied. The patient tolerated the procedure well. FINDINGS: 1. Patent and compressible right IJV accessed with continuous ultrasound guidance. 2. Placement of 16 Fr x 19 cm tunneled right IJV hemodialysis catheter. 3. Post-procedure intraprocedural chest radiograph showed the catheter tip in the proximal right atrium, no kinks along course of catheter, and no pneumothorax. Catheter is ready for use. IMPRESSION: Placement of right IJ tunneled hemodialysis catheter. Catheter is ready for immediate use. Signed by: Dr. Kenneth Velasquez MD on 09/20/2018 11:02 AM
== END ==
LOC: RAD 05:00 → OR 09-19 06:30 → EDSTATUS 09-19 08:00
PROVIDERS: ATTEND Internal Medicine Gastroenterology
DX: Z01.818 Encounter for other preprocedural examination (principal); Z53.8 Procedure and treatment not carried out for other reasons; R12 Heartburn; R63.0 Anorexia; E11.9 Type 2 diabetes mellitus without complications; E66.3 Overweight; I10 Essential (primary) hypertension; Z71.3 Dietary counseling and surveillance
CPT/HCPCS: 36415; 80048; 82948; 85025; 85610; 85730; 93005

== ENCOUNTER 2018-09-19 07:52 | Inpatient (IN) | payer MEDICARE ==
[~2018-09-19] VITALS: Ht 152.4 cm; Wt 57.2 kg
[~2018-09-19 07:52] MED LIST changes: -ASPIR 8181 MG PO; -BENADRYL25 M1 PO; -FUROSEMIDE40 MG PO
--- OUTSIDE RECORDS SUMMARY | 2018-09-19 07:56 | XMS REPORT | Continuity of Care Document ---
Author Author Devon latonya [facility] Address Unknown Phone Unavailable Problems Problem Status Onset Date Classification Date Reported Comments Source STRENGTH/WEAKNESS/GAIT Active 03/27/2018 [facility] [place] R53.1 Active 11/11/2017 [facility] [place] M89.9 - "DISORDER OF BONE, UNSPECIFIED" Active 03/09/2017 [facility] [place] R14.0 - ABDOMINAL DISTENSION (GASEOUS) Active 08/02/2016 [facility] [place] Medications Medication Details Route Status Patient Instructions Ordering Provider Order Date Source Allergies, Adverse Reactions, Alerts Substance Category Reaction Severity Reaction type Status Date Reported Comments Source Immunizations Immunization Date Given Site Status Last Updated Comments Source Results Order Name Results Value Reference Range Date Interpretation Comments Source Foot series DX Foot series DX Exam: Foot series DX, right, 3 views Reason for Exam: - M79.674 Pain in right toe(s) Comparison Exam: X-ray 12/01/2013 Discussion: Slightly displaced oblique fracture is seen within the proximal phalanx of the 5th digit. Fracture line does not appear to extend into the articulating surfaces. No suspicious osteoblastic or osteolytic lesions seen to suggest pathologic involvement. No radiopaque foreign bodies. Osteoarthritic changes are noted within the ankle but not optimally visualized. Findings discussed with Dr. Pierre on 03/22/2018 at 1305 hours. Impression: 1. Slightly displaced oblique fracture is seen within the proximal phalanx of the 5th digit. Fracture line does not appear to extend into the articulating surfaces. 03/22/2018 - - Read by: Carlos Alberto Sumner MD Dictated Date/time: 03/22/18 13:01 Electronically Signed by: Carlos Alberto Sumner MD 03/22/18 13:07 FINAL REPORT [facility] Skull 2 views DX Skull 2 views DX EXAMINATION: Skull 2 views HISTORY: - M89.9 Disorder of bone, unspecified; nontraumatic nonpainful small palpable lesion along the forehead TECHNIQUE: 2 views of the skull are performed and compared to 02/06/2013. FINDINGS: There are no aggressive osteolytic or osteoblastic lesions of the skull identified. The bilateral frontal, ethmoid, maxillary, and sphenoid sinuses appear well-aerated. The bilateral mastoid air cells are well aerated. Dental instrumentation is noted. IMPRESSION: 1. No aggressive osteolytic or osteoblastic lesions of the skull identified. 2. Well aerated paranasal sinuses. 03/09/2017 - - Read by: Tony Huynh MD Dictated Date/time: 03/09/17 16:05 Electronically Signed by: Tony Huynh MD 03/09/17 16:07 FINAL REPORT LOUL[facility] Retroperitoneal Complete US Retroperitoneal Complete US EXAM: US RENAL DATE: 01/02/2017 9:18 AM CDT INDICATION: - R80.9 Proteinuria, unspecified ADDITIONAL INFORMATION: None. COMPARISON: None. TECHNIQUE: Multiplanar grayscale and color Doppler ultrasound of the kidneys and urinary bladder. FINDINGS: Right kidney: Hydronephrosis: None. Size: 11.5 x 4.2 x 4.0 cm. Echogenicity: Increased Calculi: Nonobstructing 8 mm interpolar calculus Cysts: Multiple, the largest measuring 4.8 x 5.5 x 5.3 cm Masses: None. Left kidney: Hydronephrosis: None. Size: 11.0 x 4.2 x 4.6 cm. Echogenicity: Increased Calculi: None. Cysts: Multiple, the largest measuring 3.0 x 2.4 x 2.9 cm Masses: 4.9 x 6.1 x 4.8 cm lower pole hyperechoic exophytic mass Bladder: Normal. Bilateral ureteral jets were visualized. Imaging of the pelvis reveals a large complex cystic mass in the right adnexa. IMPRESSION: 1. Increased renal echogenicity is consistent with chronic medical renal disease. 2. Multiple bilateral renal cysts measuring up to 5.5 cm. 3. Large left renal exophytic mass, possibly lipomatous. 4. Nonobstructing right renal calculus. 5. Incidentally visualized right adnexal cystic lesion. 6. Further evaluation with abdomen and pelvis CT with contrast is recommended. SL: [id number] 01/02/2017 - - Read by: Last Oakes Dictated Date/time: 01/02/17 11:35 Electronically Signed by: Last Oakes 01/02/17 11:40 FINAL REPORT [facility] [place] Abdomen AP DX Abdomen AP DX EXAM: Abdomen AP DX HISTORY: abdominal distention COMPARISON: None Gallstones are noted. There is a moderate amount of stool in a nonobstructive bowel gas pattern. Moderate degenerative change of the bones noted. IMPRESSION: Calcified gallstones. No evidence of bowel obstruction. 08/02/2016 - - Read by: Claude López MD Dictated Date/time: 08/02/16 12:59 Electronically Signed by: Claude López MD 08/02/16 13:00 FINAL REPORT [facility] [place] Vital Signs Vital Sign Value Date Comments Source Encounters Location Location Details Encounter Type Encounter Number Reason For Visit Attending Provider ADM Date DC Date Status Source [facility] [place] [facility] [id number] Kavin Pierre 04/15/2014 04/16/2014 [facility] [place] [facility] [place] [facility] [id number] Kavin Pierre 12/23/2014 12/24/2014 [facility] [place] [facility] [place] [facility] [id number] Kavin Pierre 08/02/2016 08/03/2016 [facility] [place] [facility] [place] [facility] [id number] Francisco Diana 01/02/2017 01/03/2017 [facility] [place] [facility] [place] [facility] [id number] Kavin Pierre 03/09/2017 03/10/2017 [facility] [place] Procedures Procedure Code Date Perfomer Comments Source
[2018-09-19] MEDS ORDERED: SODIUM CHLORIDE 0.9% 1000ML 1,000 ML IV STA (08:16)
--- NOTE | 2018-09-19 08:26 | NUR ---
Call placed to lab to draw blood.
--- NOTE | 2018-09-19 08:55 | NUR ---
xray at bedside.
--- NOTE | 2018-09-19 09:10 | Diagnostic Imaging Report ---
Examination: Single AP view of the chest. COMPARISON: None. INDICATION: Abnormal labs DISCUSSION: The lungs remain well-inflated. No focal airspace consolidation, pleural effusion, or pneumothorax. Stable cardiomediastinal contour with tortuosity and atherosclerotic calcification of the thoracic aorta. No pulmonary edema. No acute osseous abnormalities. Advanced degenerative changes of both acromioclavicular and glenohumeral joints. Stable probable small bone island in the right humeral head. Surgical clips project over the mid epigastric region. Triangular radiodensity projecting over the right upper quadrant of the abdomen may be artifacts, though additional considerations include a calcified lymph node, bowel contents, or gallstone. IMPRESSION: 1. No acute cardiopulmonary abnormalities. Signed by: Dr. Douglas Jay M.D. on 09/19/2018 9:07 AM
[2018-09-19 09:39] LABS: CLARITY,URINE HAZY (CLEAR); COLOR,URINE YELLOW (YELLOW)
[2018-09-19 09:40] LABS: BILIRUBIN,URINE NEGATIVE (NEGATIVE); KETONES,URINE NEGATIVE (NEGATIVE); LEUKOCYTE ESTERASE ,URINE TRACE (NEGATIVE); NITRITE,URINE NEGATIVE (NEGATIVE); PROTEIN,URINE DIPSTICK 2+ (NEGATIVE); URINE UROBILINOGEN 0.2 mg/dL (0.2 - 1)
[2018-09-19 09:43] LABS: AMORPHOUS SEDIMENT,URINE MODERATE (FEW); BACTERIA,URINE RARE /HPF; EPITHELIAL CELLS,URINE RARE /LPF; RBC,URINE 0-5 /HPF (0-5)
[2018-09-19 11:10] LABS: BASOPHILS % 0.2 % (0.0-1.0); EOSINOPHILS # (AUTO) 0.2 (0.0-0.4); EOSINOPHILS % 1.6 % (0.0-6.0); HEMATOCRIT 37.8 % (34.2-44.1); HEMOGLOBIN 11.8 g/dL (12.0-16.0); LYMPHOCYTES # (AUTO) 1.4 (1.0-3.2); LYMPHOCYTES % 14.8 % (18.0-39.1); MEAN CORPUSCULAR HEMOGLOBIN 29.6 pg (28-32); MEAN CORPUSCULAR HGB CONC 31.2 g/dL (31-35); MEAN CORPUSCULAR VOLUME 94.7 fL (81-99); MONOCYTES # (AUTO) 0.4 (0.2-0.8); MONOCYTES % 4.6 % (4.4-11.3); NEUTROPHILS # (AUTO) 7.2 (2.1-6.9); NEUTROPHILS % 77.9 % (38.7-80.0); PLATELET COUNT 235 x10e3/uL (140-360); RED BLOOD COUNT 3.99 x10e6/uL (3.6-5.1); RED CELL DISTRIBUTION WIDTH 15.9 % (11.7-14.4)
[2018-09-19 11:33] LABS: ALBUMIN 2.6 g/dL (3.5-5.0); ALBUMIN/GLOBULIN RATIO 0.8 (0.8-2.0); ANION GAP 19.8 mmol/L (8-16); CALCIUM 8.8 mg/dL (8.4-10.2); CREATININE, SERUM 8.15 mg/dL (0.57-1.11); POTASSIUM 4.8 mmol/L (3.5-5.1)
[2018-09-19 11:40] LABS: CREATINE KINASE MB 1.9 ng/mL (0-5.0)
--- NOTE | 2018-09-19 13:00 | NUR ---
Unable to obtain home meds at this time.
[2018-09-19] MEDS ORDERED: SODIUM BICARBONATE 8.4% INJ 50 ML SYR IV STA (13:21)
[2018-09-19] MEDS ORDERED: SODIUM BICARBONATE 8.4% 150 ML in DEXTROSE 5% 1,000 ML IV ONE (13:30)
[2018-09-19] MEDS ORDERED: DEXTROSE 5% 1,000 ML IV ONE (13:30)
[2018-09-19] MEDS ORDERED: DIPHENHYDRAMINE HCL INJ 50 MG/ML VIAL IV ONE ×2 (14:30)
--- NOTE | 2018-09-19 15:01 | NUR ---
Family informed of need for home med list, understanding verbalized.
--- NOTE | 2018-09-19 15:15 | NUR ---
Received patient via stretcher from ER. Accompanied by son. AAOX2 to person, place. Respirations even and unlabored. Rash noted to upper and lower extremities and trunk. Patient's son states "My mother has had this rash for the past year."Oriented patient and son to room. Instructed to use call light for assistance. Voiced understanding. Will continue to monitor.
[2018-09-19 15:20] VITALS: BP 163/83
[2018-09-19 15:27] VITALS: BP 163/83
[2018-09-19 15:33] VITALS: BP 163/83
--- NOTE | 2018-09-19 16:15 | NUR ---
paged to notify of new consult
[2018-09-19] MEDS: INSULIN REGULAR, HUMAN 100 UNIT/1 ML 3ML VIAL SQ SCH ×2 (16:30→21:00)
--- NOTE | 2018-09-19 17:00 | NUR ---
aware of rash. See orders
[2018-09-19] MEDS: SODIUM BICARBONATE 8.4% SYRING 150 ML in DEXTROSE 5% 1,000 ML IV SCH (17:03)
[2018-09-19] MEDS ORDERED: BENADRYL25 M1 PO (17:23)
[2018-09-19] MEDS ORDERED: GABAPENTIN300 MG PO (17:23)
[2018-09-19] MEDS ORDERED: ASPIR 8181 MG PO (17:23)
[2018-09-19] MEDS ORDERED: FUROSEMIDE40 MG PO (17:23)
[2018-09-19] MEDS ORDERED: GLIMEPIRIDE2 MG PO (17:23)
[2018-09-19] MEDS ORDERED: NIFEDIPINE ER30 M1 PO (17:23)
[2018-09-19] MEDS ORDERED: CLONIDINE HCL0.1 MG PO (17:23)
--- NOTE | 2018-09-19 17:43 | NUR ---
spoke with madeline from [facility] and notified patient to have HD tomorrow per
[2018-09-19] MEDS ORDERED: ONDANSETRON HCL INJ 2MG/ML 2ML 2 MG/ML VIAL IV PRN (17:45)
[2018-09-19] MEDS ORDERED: ACETAMINOPHEN 325 MG TAB PO PRN (17:45)
[2018-09-19] MEDS ORDERED: HYDRALAZINE HCL 20 MG/ML VIAL IV PRN (17:45)
--- NOTE | 2018-09-19 18:05 | Consultation ---
DATE OF CONSULTATION: September 19, 2018 This 73-year-old female known to our nephrology service has advanced kidney failure, CKD-5, has been refusing dialysis in the office. At this time, she has agreed for dialysis. She has been admitted with somewhat confusion. She is fairly dependent on activities of daily living. She has to be fed. She has memory which comes and goes according to daughter and son who quite actively participate in her care. Follows up at our office with Dr. Ness. Today labs show sodium 135, potassium 4.8, bicarbonate 18, creatinine is 8.15. She is otherwise laying supine, no apparent distress. She has got a diffuse kind of papular scaly rash all over her body, particularly lower extremities. 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 The rash does itch. She is otherwise laying supine, no apparent distress. Thin-built female. Extremely poor muscle mass. I discussed with patient about initiation of dialysis and she agrees. Discussed with son and daughter about the process of dialysis catheter placement, outpatient dialysis, dialysis schedule, otherwise related renal replacement therapies. All questions answered. ALLERGIES: NO APPARENT DRUG ALLERGIES. MEDICATIONS: Currently patient is on ondansetron p.r.n. She is on insulin and she received one-time D5 water and currently D5 125 mL an hour. SOCIAL HISTORY: Does not smoke or drink. PAST HISTORY: Significant for advanced kidney failure, type 2 diabetes with retinopathy, neuropathy, underlying hypertension. PHYSICAL EXAMINATION GENERAL: Awake, alert, lying supine. No apparent distress. VITALS: Blood pressure 163/83. Pulse rate 78, afebrile, respiratory rate 18, oxygen saturation 97% room air. HEAD AND NECK: Cornea clear. Oral mucosa moist. Neck veins flat. SKIN: As described. LUNGS: Supine exam. Poor oral entry effort. No rales or rhonchi. HEART: S1, S2 audible. Soft 2 to 3/6 ejection systolic murmur heard over left sternal border. ABDOMEN: Otherwise soft, nontender. LOWER EXTREMITY EXAMINATION: No edema. IMPRESSIONS AND PLANS 1. End-stage renal disease. 2. Diabetic nephropathy. 3. Diabetic kidney disease. 4. Hypertension. 5. Skin rash, unclear. This is not related to kidney failure. Will have Dr. Olvera take a look at the rash and give his opinion in the meantime. Will start IV bicarbonate. Discontinue D5 water. Request for IR to place tunneled dialysis catheter in the morning and then subsequently initiate dialysis. Will consult case management for the tests ordered. Job#: [id number] CECILIA
[2018-09-19] MEDS: CEFTRIAXONE SOD 1 GM/NS 50 ML 50 ML IV SCH (18:45)
--- NOTE | 2018-09-19 18:46 | NUR ---
placed SCD as ordered
--- NOTE | 2018-09-19 19:10 | NUR ---
Walking rounds done. No s/s of acute distress noted.
[2018-09-19 20:00] VITALS: BP 140/77
[2018-09-19] MEDS: DIPHENHYDRAMINE HCL 25 MG CAP PO PRN (21:55)
[2018-09-19] MEDS: CALAMINE LOTION 4 OZ BOTTLE TP SCH (23:00)
[2018-09-20] VITALS (10 sets, daily range): BP systolic 95–178; BP diastolic 51–85
[2018-09-20] MEDS ORDERED: SODIUM BICARBONATE 8.4% SYRING 50 ML ONE (03:35)
[2018-09-20] MEDS: SODIUM BICARBONATE 8.4% SYRING 150 ML in DEXTROSE 5% 1,000 ML IV SCH ×2 (03:54→16:03)
[2018-09-20 03:58] LABS: BASOPHILS % 0.3 % (0.0-1.0); EOSINOPHILS # (AUTO) 0.4 (0.0-0.4); EOSINOPHILS % 4.3 % (0.0-6.0); HEMATOCRIT 30.4 % (34.2-44.1); HEMOGLOBIN 9.9 g/dL (12.0-16.0); LYMPHOCYTES % 21.8 % (18.0-39.1); MEAN CORPUSCULAR HEMOGLOBIN 29.9 pg (28-32); MEAN CORPUSCULAR HGB CONC 32.6 g/dL (31-35); MEAN CORPUSCULAR VOLUME 91.8 fL (81-99); MONOCYTES # (AUTO) 0.5 (0.2-0.8); MONOCYTES % 5.3 % (4.4-11.3); NEUTROPHILS # (AUTO) 6.1 (2.1-6.9); NEUTROPHILS % 67.6 % (38.7-80.0); PLATELET COUNT 220 x10e3/uL (140-360); RED BLOOD COUNT 3.31 x10e6/uL (3.6-5.1); RED CELL DISTRIBUTION WIDTH 15.9 % (11.7-14.4)
[2018-09-20 04:13] LABS: B-TYPE NATRIURETIC PEPTIDE2 45.3 pg/mL (0-100)
[2018-09-20 04:19] LABS: ALBUMIN 2.3 g/dL (3.5-5.0); ALBUMIN/GLOBULIN RATIO 0.8 (0.8-2.0); ANION GAP 18.9 mmol/L (8-16); CREATININE, SERUM 7.4 mg/dL (0.57-1.11); POTASSIUM 3.9 mmol/L (3.5-5.1)
--- NOTE | 2018-09-20 05:39 | NUR ---
CALL PLACED FOR MD KIM CONCERNING PT ACTIVELY SCRATCHING ALL OVER BODY AND CAUSING RASH TO BLEED. WAITING FOR CALLBACK.
--- NOTE | 2018-09-20 05:45 | NUR ---
RECEIVED CALLBACK FROM MD, UNABLE TO RETURN TO PHONE IN TIME AND MD DISCONNECTED.
--- NOTE | 2018-09-20 06:03 | NUR ---
IV TO (L) WRIST NOTED TO BE LEAKING. IVF STOPPED. IV DISCONTINUED, CATHETER TIP INTACT. IV TO (L) FA FLUSHED AND NOTED TO HURT PT. IV DISCONTINUED. IV CATHETER TIP INTACT. NEW IV STARTED TO (L) FA 22G, FLUSHES WITHOUT DIFFICULTY, BLOOD RETURN NOTED.
--- NOTE | 2018-09-20 06:09 | NUR ---
PAGE PLACED FOR MD KIM CONCERNING PT BLEEDING, WAITING FOR CALLBACK.
[2018-09-20] MEDS ORDERED: DIPHENHYDRAMINE HCL INJ 50 MG/ML VIAL IV ONE (06:15)
--- NOTE | 2018-09-20 07:00 | NUR ---
Rcvd patient in report this am. Patient is asleep in bed at this time. Patient going to laborer stores for procedure this am.
[2018-09-20] MEDS ORDERED: HEPARIN SOD (PORCINE) 1000 UNIT/ML 30ML ONE (07:20)
[2018-09-20] MEDS ORDERED: MIDAZOLAM HCL 2 MG/2 ML VIAL ONE (07:20)
[2018-09-20] MEDS ORDERED: FENTANYL CITRATE/PF 100MCG/2 ML INJ ONE (07:21)
[2018-09-20] MEDS ORDERED: LIDOCAINE HCL 1% LOCAL INJ 20 ML VIAL ONE (07:21)
[2018-09-20] MEDS ORDERED: SODIUM CHLORIDE 0.9% 500ML 1,000 ML ONE (07:21)
[2018-09-20] MEDS: INSULIN REGULAR, HUMAN 100 UNIT/1 ML 3ML VIAL SQ SCH ×4 (07:30→21:00)
--- NOTE | 2018-09-20 07:30 | NUR ---
Patient went to label stitcher at this time.
[2018-09-20] MEDS ORDERED: GLIMEPIRIDE 2 MG TAB PO SCH (09:00)
[2018-09-20] MEDS ORDERED: NIFEDIPINE CR 30 MG TAB PO SCH (09:00)
--- NOTE | 2018-09-20 09:01 | NUR ---
Patient returned from microbiological laboratory technician at this time. Right subclavian tunnelled cath placed. NO bleeding noted to the site. Son at bedside
[2018-09-20] MEDS: ASPIRIN 81 MG CHEW TAB PO SCH (09:06)
[2018-09-20] MEDS: CLONIDINE HCL 0.1 MG TAB PO SCH ×2 (09:06→16:12)
[2018-09-20] MEDS: PANTOPRAZOLE SOD 40 MG TABEC PO SCH (09:07)
[2018-09-20] MEDS: CALAMINE LOTION 4 OZ BOTTLE TP SCH ×3 (09:07→22:32)
[2018-09-20] MEDS: GABAPENTIN 300 MG CAP PO SCH ×2 (09:07→16:27)
[2018-09-20] MEDS: DIPHENHYDRAMINE HCL 25 MG CAP PO PRN (09:24)
[2018-09-20 09:45] LABS: INR 1.03; PROTHROMBIN TIME 14.4 seconds (11.9-14.5)
--- NOTE | 2018-09-20 10:53 | NUR ---
Patient is AAox2-3. Some confusion noted at times. Family at bedside. Lung silver clear to auscultation. Bowel sounds present x4. No edema noted. Right subclavian tunnel cath placed today. Dressing clean and dry. Rash noted all over body. PRN benadryl given. No c/o pain. No s/s of distress noted
[2018-09-20] MEDS: DEXTROSE 50% SYRINGE 50 ML IV PRN ×2 (14:47→20:30)
--- NOTE | 2018-09-20 14:47 | NUR ---
Sugar noted at 46. D50 pushed at this time. Patient starting to wake up. Will recheck
--- NOTE | 2018-09-20 15:41 | NUR ---
Patient is awake and sitting in chair. Will recheck sugar but no s/s of distress noted
[2018-09-20] MEDS: PREDNISONE 10 MG TAB PO SCH (16:27)
--- NOTE | 2018-09-20 16:30 | Consultation ---
DATE OF CONSULTATION: HISTORY OF PRESENT ILLNESS: A 73-year-old female patient with a history of chronic kidney disease, diabetes mellitus, admitted with renal failure. Creatinine of 8.15. Patient also has a history of chronic recurrent papillar itchy rash involving extremities, trunk, abdomen. Patient has attempted multiple creams and ointments without help. PAST MEDICAL HISTORY: Chronic kidney disease and hypertension. ALLERGIES: NONE. PHYSICAL EXAMINATION GENERAL: Patient is sleepy after the procedure after IV line. HEENT: Normal. NECK: Normal. LUNGS: Bilaterally normal. ABDOMEN: Soft. Normal bowel sounds. EXTREMITIES: Lower extremities with no edema. SKIN: Patient has extensive papillar eruptions involving lower extremities, abdomen and back consistent with chronic allergic reaction probably from sulfa. The patient is on glimepiride. 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 PLAN: Advised to discontinue glimepiride. May avoid lasix, HCTZ Symptomatic treatment for now. May consider small dose of prednisone. Thank you for the consultation. Job#: [id number] ZAID PATTERSON
--- NOTE | 2018-09-20 16:33 | Consultation ---
DATE OF CONSULTATION: September 20, 2018 GASTROENTEROLOGY CONSULTATION REASON FOR CONSULTATION: Gastritis. HISTORY OF PRESENT ILLNESS: Ms. Gonzalez is a pleasant 73-year-old woman who is here with advanced renal failure and starting dialysis. She sees Dr. Jeffries as an outpatient. They had wanted to perform an upper endoscopy for symptoms of lack of appetite, decreased p.o. intake and belching. She is a little bit better on PPI. They were unable to perform the endoscopy due to her other medical comorbidities and uncontrolled hypertension. They are interested in getting that done as an inpatient. She was not even taking her pills due to her upper GI symptoms. Currently, she is post procedural and sedated and unable to provide a history. History is taken from the son at bedside. PAST MEDICAL HISTORY 1. Chronic kidney disease. 2. Rash. 3. Hypertension. 4. Diabetes with complications including retinopathy. 5. Neuropathy. MEDICATIONS: Reviewed. Please see [facility] medication reconciliation form. ALLERGIES: REVIEWED. PLEASE SEE [facility] MEDICATION RECONCILIATION FORM. SOCIAL HISTORY: No alcohol, tobacco or illicit substances. She has good family support. REVIEW OF SYSTEMS: Unobtainable at this time due to her sedated status. PHYSICAL EXAMINATION GENERAL: She is calm. She is sleeping. No acute distress. HEENT: Pupils equal, round and reactive to light. Pupils anicteric. NECK: Supple. Right dialysis catheter noted. CARDIOVASCULAR: S1 and S2. ABDOMEN: Soft, nontender and nondistended with normal bowel sounds. EXTREMITIES: No clubbing or cyanosis. SKIN: She has a rash. PSYCH: Unable. NEUROLOGIC: Unable. HEM/ONC: No significant adenopathy. She has some bruising. The electronic health records reviewed for laboratory and radiology studies, as well as history. ASSESSMENT 1. Dyspepsia. 2. Loss of appetite. 3. Heartburn. 4. Chronic kidney disease, initiating dialysis. 5. Hypertension. 6. Diabetes with complications. PLAN: At the current time, her upper GI symptoms may be related to gastroparesis. Uremia may be contributing. She may also have GERD, gastritis or ulcer disease. Upper endoscopy is warranted. It can be accomplished on Sunday. Thereafter, we can also consider a gastric emptying scan more routinely. Upper endoscopy discussed with son at bedside, and he is interested in accomplishing it. Thank you very much for asking us to see Ms. Gonzalez. Any questions or concerns, please do not hesitate to contact me. Will follow with you. Job#: [id number] RI
[2018-09-20] MEDS: CEFTRIAXONE SOD 1 GM/NS 50 ML 50 ML IV SCH (17:07)
--- NOTE | 2018-09-20 18:48 | NUR ---
Dietary consult received. Son request to return later for assessment and diet education.
--- NOTE | 2018-09-20 19:20 | NUR ---
REPORT TAKEN FROM AM N.WALKING ROUNDS DONE.DIALYSIS IS GOING ON.PT IS LETHARGIC.NO RESP.DISTRESS.BED LOCKED AND IN LOWEST POSITION.PHONE AND CALL LIGHT WITHIN REACH.INSTRUCTED TO CALL FOR ASSISTANCE NEEDED.KEEP MONITOR THE PT.
--- NOTE | 2018-09-20 22:00 | NUR ---
BLOOD SUGAR NOTED 52.D50 ADMINISTERED.RECHECKED 132.KEEP MONITOR THE PT.
[2018-09-21] VITALS (8 sets, daily range): BP systolic 84–123; BP diastolic 51–68
[2018-09-21 03:21] LABS: BASOPHILS % 0.3 % (0.0-1.0); EOSINOPHILS % 0.3 % (0.0-6.0); HEMATOCRIT 29.6 % (34.2-44.1); HEMOGLOBIN 9.6 g/dL (12.0-16.0); LYMPHOCYTES # (AUTO) 0.6 (1.0-3.2); LYMPHOCYTES % 9.2 % (18.0-39.1); MEAN CORPUSCULAR HEMOGLOBIN 30.3 pg (28-32); MEAN CORPUSCULAR HGB CONC 32.4 g/dL (31-35); MEAN CORPUSCULAR VOLUME 93.4 fL (81-99); MONOCYTES # (AUTO) 0.3 (0.2-0.8); NEUTROPHILS # (AUTO) 5.5 (2.1-6.9); NEUTROPHILS % 85.3 % (38.7-80.0); PLATELET COUNT 169 x10e3/uL (140-360); RED BLOOD COUNT 3.17 x10e6/uL (3.6-5.1); RED CELL DISTRIBUTION WIDTH 15.7 % (11.7-14.4)
[2018-09-21 03:36] LABS: ANION GAP 13.7 mmol/L (8-16); CALCIUM 7.6 mg/dL (8.4-10.2); CREATININE, SERUM 4.31 mg/dL (0.57-1.11); MAGNESIUM 1.7 MG/DL (1.3-2.1); POTASSIUM 3.7 mmol/L (3.5-5.1)
[2018-09-21] MEDS: SODIUM BICARBONATE 8.4% SYRING 150 ML in DEXTROSE 5% 1,000 ML IV SCH (03:38)
[2018-09-21] MEDS ORDERED: HEPARIN SOD (PORCINE) 1000 UNIT/ML SDV ONE (06:47)
--- NOTE | 2018-09-21 06:50 | NUR ---
REPORT GIVEN TO THE ONCOMING RN.WALKING ROUNDS DONE.STABLE CONDITION.
--- NOTE | 2018-09-21 07:19 | NUR ---
Rcvd patient in report this am. Patient is asleep in bed at this time. No s/s of distress noted. Patient on dialysis at this time.
[2018-09-21] MEDS: INSULIN REGULAR, HUMAN 100 UNIT/1 ML 3ML VIAL SQ SCH ×4 (07:30→20:24)
--- NOTE | 2018-09-21 08:39 | Progress Note ---
DATE: September 21, 2018 SUBJECTIVE: Seen on dialysis. Tolerating procedure. No swelling is noted. OBJECTIVE VITAL SIGNS: Temperature 95.4, pulse 66, blood pressure 84/51. NECK: No JVD. CHEST: Clear. ABDOMEN: Benign. EXTREMITIES: No edema. SKIN: With dry clearing rash. ASSESSMENT: End-stage renal disease, presumed diabetic nephropathy. Acidosis is improved. PLAN: Hemodialysis today; 3-hour run, F160 filter, 3 potassium bath, fluid removal to 0, blood flow rate 300 mL per minute, dialysis fluid flow rate 700 mL per minute. We will follow along. Job#: [id number] AVILA
[2018-09-21] MEDS: PANTOPRAZOLE SOD 40 MG TABEC PO SCH (08:51)
[2018-09-21] MEDS: CLOBETASOL 0.05% CREAM 45GMS 1 EA/15 GM TUBE TOP SCH (08:51)
[2018-09-21] MEDS: GABAPENTIN 300 MG CAP PO SCH ×2 (08:51→17:17)
[2018-09-21] MEDS: ASPIRIN 81 MG CHEW TAB PO SCH (08:51)
[2018-09-21] MEDS: CALAMINE LOTION 4 OZ BOTTLE TP SCH ×3 (08:51→20:24)
[2018-09-21] MEDS: PREDNISONE 10 MG TAB PO SCH ×2 (08:51→17:17)
--- NOTE | 2018-09-21 10:37 | NUR ---
Patient completed dialysis. NO fluid removed at this time. Patient tolerated well.
--- NOTE | 2018-09-21 10:41 | NUR ---
Patient is AAOx2-3. Patient lung silver clear to auscultation. Bowel sounds present x4. No edema noted. Right subclavian dialysis line in place with dry dressing. Left AC IV in place. Patient is minimal assist in ADL's. Incontinent bowel and bladder
--- NOTE | 2018-09-21 13:19 | NUR ---
Nutrition Screen Note RD Recommendation for Physician: 1800 ADA renal diet Plan of Care: RD following, monitoring for adequacy and tolerance Nutrition reason for involvement: MD Consult for new onset dialysis, Nutrition Risk Trigger - MST Primary Diagnose(s): Renal failure Ht:60 in Wt:127lbs BMI:24.8 kg/m2 IBW:100lbs RD Assessment:(09/21/2018) Initial encounter with patient in AM. Had to return when daughters arrived to give a diet instruction. Pt is reporting a good PO intake and denies any nausea, vomiting or diarrhea. Pt has missing teeth, but denies any difficulty chewing or swallowing Current Diet: Renal diet Malnutrition Evaluation (09/21/2018) The patient does not meet criteria for a specified degree of malnutrition at this time. Will re-evaluate at follow-up as appropriate. Nutrition Education Learner(s): Pt and and both daughters. Barriers: none Cultural/Language Modifications: Readiness: Willing Method: Verbal and handouts Topics: Diabetes and Dialysis diet Understanding/Compliance: Expect compliance Diet Adequacy: Meeting calorie needs, Meeting protein needs, Meeting fluid needs Tolerance: Tolerating PO Nutrition Care Level: Ralph Hathaway RD, LD, CNSC
[2018-09-21] MEDS: CEFTRIAXONE SOD 1 GM/NS 50 ML 50 ML IV SCH (17:17)
--- NOTE | 2018-09-21 19:10 | NUR ---
RECEIVED THE PT FROM MORNING RN.WALKING ROUNDS DONE.LYEING IN THE BED.STABLE CONDITION.
[2018-09-21] MEDS: DIPHENHYDRAMINE HCL 25 MG CAP PO PRN (22:11)
--- NOTE | 2018-09-21 22:48 | NUR ---
AAOX3.AMBULATES WITH WALKER AND ASSISTANCE.NO PAIN VOICED.VOIDED.NO RESP.DISTRESS.CALAMINE LOTION APPLIED ALL OVER THE BODY.BED LOCKED AND IN LOWEST POSITION.BED ALARM ON.PHONE AND CALL LIGHT WITHIN REACH.INSTRUCTED TO CALL FOR ASSISTANCE NEEDED.
[2018-09-22] VITALS (8 sets, daily range): BP systolic 130–149; BP diastolic 64–85
[2018-09-22 03:28] LABS: BASOPHILS % 0.1 % (0.0-1.0); EOSINOPHILS % 0.1 % (0.0-6.0); HEMATOCRIT 31.5 % (34.2-44.1); HEMOGLOBIN 9.8 g/dL (12.0-16.0); LYMPHOCYTES # (AUTO) 0.5 (1.0-3.2); LYMPHOCYTES % 6.1 % (18.0-39.1); MEAN CORPUSCULAR HEMOGLOBIN 29.7 pg (28-32); MEAN CORPUSCULAR HGB CONC 31.1 g/dL (31-35); MEAN CORPUSCULAR VOLUME 95.5 fL (81-99); MONOCYTES # (AUTO) 0.4 (0.2-0.8); MONOCYTES % 4.6 % (4.4-11.3); NEUTROPHILS # (AUTO) 7.4 (2.1-6.9); NEUTROPHILS % 88.5 % (38.7-80.0); PLATELET COUNT 139 x10e3/uL (140-360)
[2018-09-22 03:52] LABS: ANION GAP 14.4 mmol/L (8-16); CALCIUM 7.8 mg/dL (8.4-10.2); CREATININE, SERUM 2.76 mg/dL (0.57-1.11); MAGNESIUM 1.5 MG/DL (1.3-2.1); POTASSIUM 4.4 mmol/L (3.5-5.1)
--- NOTE | 2018-09-22 04:08 | NUR ---
NEW IV STARTED @ LFA #22.BLOOD DRAWN AND SENT TO THE LAB.
--- NOTE | 2018-09-22 06:50 | NUR ---
REPORT GIVEN TO THE ONCOMING RN.WALKING ROUNDS DONE.STABLE CONDITION.
--- NOTE | 2018-09-22 07:21 | NUR ---
Rcvd patient in report this am. Patient is asleep in bed at this time. No s/s of distress noted
[2018-09-22] MEDS: INSULIN REGULAR, HUMAN 100 UNIT/1 ML 3ML VIAL SQ SCH ×4 (07:30→21:00)
[2018-09-22] MEDS: ASPIRIN 81 MG CHEW TAB PO SCH (08:22)
[2018-09-22] MEDS: PANTOPRAZOLE SOD 40 MG TABEC PO SCH (08:22)
[2018-09-22] MEDS: GABAPENTIN 300 MG CAP PO SCH ×2 (08:22→16:38)
[2018-09-22] MEDS: PREDNISONE 10 MG TAB PO SCH ×2 (08:22→16:38)
[2018-09-22] MEDS: CLOBETASOL 0.05% CREAM 45GMS 1 EA/15 GM TUBE TOP SCH (09:28)
[2018-09-22] MEDS: CALAMINE LOTION 4 OZ BOTTLE TP SCH ×3 (09:28→21:11)
--- NOTE | 2018-09-22 12:01 | NUR ---
Patient is AAOx3. Patient ambulates with a walker. No c/o pain. Rash improving all over body. Itching has subsided. Family at bedside. Patient lung silver clear to auscultation. Bowel sounds present x4. NO edema noted. Right subclavian dialysis line in place. NO s/s of distress noted
--- NOTE | 2018-09-22 15:05 | NUR ---
Visit made by the Spiritual Care Department Pastoral Visitor, Federico Figueroa. PV provided pastoral presence, hospitality, and supportive listening. Pastoral Visitor informed pt/family of the scope of [employer] and availability. PRIMO ALAS Retail Marketing Coordinator Spiritual Care Department O: [phone] Pager: [phone] ([phone] calling from)
--- NOTE | 2018-09-22 19:00 | NUR ---
Received report from morning rn.walking rounds done.lyeing quietly in the bed.sable condition.
[2018-09-22] MEDS: DIPHENHYDRAMINE HCL 25 MG CAP PO PRN (23:30)
[2018-09-23] VITALS (8 sets, daily range): BP systolic 125–142; BP diastolic 67–92
--- NOTE | 2018-09-23 00:07 | NUR ---
PT IS MAINTAINING NPO FOR PROCEDURE.NO RESP.DISTRESS.NO PAIN VOICED.BED ALARM ON.BED LOCKED AND IN LOWEST POSITION.PHONE AND CALL LIGHT WITHIN REACH.INSTRUCTED TO CALL FOR ASSISTANCE NEEDED.
[2018-09-23] MEDS ORDERED: SODIUM CHLORIDE 0.9% 1000ML 2,000 ML ONE (05:24)
--- NOTE | 2018-09-23 06:50 | NUR ---
Report given to the oncoming rn.walking rounds done.stable condition.
[2018-09-23 06:55] LABS: BASOPHILS % 0.1 % (0.0-1.0); EOSINOPHILS % 0.5 % (0.0-6.0); HEMATOCRIT 26.4 % (34.2-44.1); HEMOGLOBIN 8.2 g/dL (12.0-16.0); LYMPHOCYTES # (AUTO) 0.9 (1.0-3.2); MEAN CORPUSCULAR HEMOGLOBIN 29.9 pg (28-32); MEAN CORPUSCULAR HGB CONC 31.1 g/dL (31-35); MEAN CORPUSCULAR VOLUME 96.4 fL (81-99); MONOCYTES # (AUTO) 0.5 (0.2-0.8); MONOCYTES % 6.4 % (4.4-11.3); NEUTROPHILS # (AUTO) 6.7 (2.1-6.9); NEUTROPHILS % 80.9 % (38.7-80.0); PLATELET COUNT 140 x10e3/uL (140-360); RED BLOOD COUNT 2.74 x10e6/uL (3.6-5.1); RED CELL DISTRIBUTION WIDTH 15.4 % (11.7-14.4)
[2018-09-23 07:13] LABS: ANION GAP 13.7 mmol/L (8-16); CALCIUM 7.7 mg/dL (8.4-10.2); CREATININE, SERUM 3.62 mg/dL (0.57-1.11); POTASSIUM 4.7 mmol/L (3.5-5.1)
[2018-09-23] MEDS: INSULIN REGULAR, HUMAN 100 UNIT/1 ML 3ML VIAL SQ SCH ×4 (07:30→21:00)
--- NOTE | 2018-09-23 07:40 | NUR ---
PATIENT SITTING UP IN HER BED RECEIVING DIALYSIS, DIALYSIS NURSE IN THE ROOM, DAUGHTER AT BEDSIDE, PATIENT'S BED IN LOW POSITION, CALL LIGHT IS WITHIN REACH, PATIENT'S BELONGINGS PLACED NEAR THE PATIENT, PATIENT HAS NO SIGNS OF DISTRESS.
[2018-09-23] MEDS ORDERED: MANNITOL 25% 12.5GM/50 ML VIAL IV PRN (08:45)
[2018-09-23] MEDS ORDERED: ALBUMIN 25% 12.5GM 0.25 GM/ML BTL IV PRN (08:45)
[2018-09-23] MEDS ORDERED: SODIUM CHLORIDE 0.9% 250ML 500 ML IV PRN (08:45)
[2018-09-23] MEDS ORDERED: SODIUM CHLORIDE 0.9% 1000ML 2,000 ML IV PRN (08:45)
[2018-09-23] MEDS ORDERED: HEPARIN SOD (PORCINE) 1000 UNIT/ML SDV IV PRN (08:45)
[2018-09-23] MEDS: GABAPENTIN 300 MG CAP PO SCH ×2 (09:00→18:05)
[2018-09-23] MEDS: CALAMINE LOTION 4 OZ BOTTLE TP SCH ×3 (09:00→21:00)
--- NOTE | 2018-09-23 11:07 | NUR ---
PT CHOICE FOR [facility] [place] [facility]
--- NOTE | 2018-09-23 12:15 | NUR ---
FAXED CLINICALS TO [facility] [phone] AND CALLED BUSINESS MACHINES TEACHER BRITTNI AT FACILITY TO LET KNOW REFERRAL IS IN SYSTEM. BRITTNI STATES THEY HAVE A T, CRISTOPHER AND SAT CHAIR AT 6PM, BUT HAS NOT GOTTEN ANYTHING FROM THE ADMISSION CENTER YET. ADVISED SHE WILL EMAIL ME OFFICIAL LETTER FOR CHAIR AND THEN CAN DC HOME.
[2018-09-23] MEDS: ASPIRIN 81 MG CHEW TAB PO SCH (13:48)
[2018-09-23] MEDS: PANTOPRAZOLE SOD 40 MG TABEC PO SCH (13:50)
[2018-09-23] MEDS: PREDNISONE 10 MG TAB PO SCH ×2 (13:50→18:06)
[2018-09-23] MEDS: CLOBETASOL 0.05% CREAM 45GMS 1 EA/15 GM TUBE TOP SCH (13:52)
--- NOTE | 2018-09-23 14:21 | NUR ---
CASE MANAGEMENT INITIAL ASSESSMENT Support Team Assoc to bedside to discuss plan of care with patient/family. CM/SW role and care transitions discussed. Anticipated discharge plan discussed along with duration of care. CM/SW discussed patients right to make decisions in care. CM/SW work hours given. Patient lives: with [facility] Admit/Transfer: thru ED Hospital/ER visits since last admit: per pt, last hospitalization in June 2018; no ED visits since then POA/Emergency contact: daughter Mehreen Hall [phone] Current/Previous Home Health: none PCP/Follow-up Care: Dr. Kavin Pierre Current/Previous DME: walker, cane, electric wheelchair - uses when out of the house Medications (referring to index hospitalization or the first time you were in the hospital) a. Were changes made in your medications when you were in the hospital on [date of index hospitalization]? no b. Did you understand the changes? n/a c. Were you able to obtain your new medications right away? n/a d. Were you able to take your medications like the doctor wanted you to? yes e. Did the hospital give you an accurate, easy to understand list of medications when you left? yes Scale of 1-10 how comfortable does patient feel with disease management in outpatient setting: Other Services: none Employment Status: retired Areas of Concerns: Renal failure Referral Needs: HD; SW working on placement Education Needs: medical management IMM/BENAVIDES given and signed (if applicable): none at this time Goal for discharge: home CM/SW left business card at the bedside with contact information. Name and number was also written on the patients whiteboard. Patient verbalized understanding of discussion. CM will follow-up with ongoing discharge and transition of care needs.
--- NOTE | 2018-09-23 20:00 | NUR ---
INITIAL ASSESSMENT COMPLETE, CALL LIGHT IN REACH, PT AWAKE ALERT AND ORIENTED, VS STABLE, PT WILL GO FOR EGD IN AM, NPO AFTER MIDNIGHT, NO OTHER NEEDS AT THIS TIME
[2018-09-24] VITALS (7 sets, daily range): BP systolic 150–179; BP diastolic 68–85
--- NOTE | 2018-09-24 | NUR ---
PT IN BED, NO DISTRESS NOTED, CALL LIGHT IN REACH, VS STABLE, PT IS NPO NOW, NOTED TO PT, TOLD TO CALL FOR NEEDS
--- NOTE | 2018-09-24 04:00 | NUR ---
PT IN BED, CALL LIGHT IN REACH, NO DISTRESS NOTED, TOLD TO CALL FOR NEEDS, VS STABLE,
--- NOTE | 2018-09-24 07:19 | NUR ---
pt resting in bed, family at bedside. no c/o pain or s/s distress at this time. will continue to monitor.
[2018-09-24] MEDS: INSULIN REGULAR, HUMAN 100 UNIT/1 ML 3ML VIAL SQ SCH ×4 (07:30→21:00)
[2018-09-24] MEDS: CALAMINE LOTION 4 OZ BOTTLE TP SCH ×3 (09:00→22:15)
[2018-09-24] MEDS: PANTOPRAZOLE SOD 40 MG TABEC PO SCH (09:00)
[2018-09-24] MEDS: PREDNISONE 10 MG TAB PO SCH ×2 (09:00→17:07)
[2018-09-24] MEDS: ASPIRIN 81 MG CHEW TAB PO SCH (09:00)
[2018-09-24] MEDS: GABAPENTIN 300 MG CAP PO SCH (09:00)
--- NOTE | 2018-09-24 10:14 | NUR ---
RECEIVED LETTER FROM [facility], SHE WILL BEGIN TREATMENT THERE ON SUNDAY THE . AT 6 PM. GAVE COPIES TO FAMILY AND FILED COPY IN CHART.
--- NOTE | 2018-09-24 10:30 | NUR ---
FAXED LABS FROM , POST OP REPORT FROM [facility] AND YESTERDAY DIALYSIS NOTES TO BRITTNI AT [facility]. BRITTNI STATES PT WILL BE GOOD TO START SERVICES ON SUNDAY.
--- NOTE | 2018-09-24 11:15 | NUR ---
PTR OFF UNIT FOR PROCEDURE.
[2018-09-24] MEDS: CLOBETASOL 0.05% CREAM 45GMS 1 EA/15 GM TUBE TOP SCH (11:20)
[2018-09-24] MEDS: IRON SUCROSE 100 MG in SODIUM CHLORIDE 0.9% 100 ML 100 ML IV SCH (11:30)
--- NOTE | 2018-09-24 15:55 | Consultation ---
DATE OF CONSULTATION: REASON FOR CONSULTATION: Skin rash and dermatitis. This patient who is a 73-year-old female comes into [facility] on September 19, 2018. Patient apparently has been having problems with dialysis in the office. She refused to dialysis in the office. This patient was admitted for some confusion. The patient has an IV access for dialysis. They plan for her to be discharged. However, the patient was noted to have a skin rash, which is diffuse and maculopapular rash and erythematous and some itching. Infectious disease was asked to see the patient. When I saw the patient, she was alert and oriented. Has no complaints. Family at the bedside. She is a 73 year old with a history of chronic kidney disease, stage 4, history of diabetes mellitus, history of hypertension admitted with renal failure. She has a history of recurrent rash involving the whole body, which etiology is unclear. She did not have a full workup before. I was asked to see her. The patient currently as mentioned above is laying in bed comfortably. PAST MEDICAL HISTORY: End-stage renal disease, on hemodialysis. SURGICAL HISTORY: She denies. ALLERGIES: FUROSEMIDE AND SULFA. SOCIAL HISTORY: There is no smoking, drug abuse or alcohol abuse. FAMILY HISTORY: Hypertension. REVIEW OF SYSTEMS HEENT: Negative. PULMONARY: Negative. CARDIAC: Negative. : Negative. LABS: White count is 9.22, hemoglobin 11.8. PHYSICAL EXAMINATION GENERAL: She is currently alert and oriented. Does not seem to be in acute distress. VITAL SIGNS: Stable. There is no fever since admission. HEENT: Normocephalic. Not icteric. NECK: Supple. CHEST: Clear. HEART: S1 and S2 is normal. There is no murmur. ABDOMEN: Soft. Positive bowel sounds present. EXTREMITIES: There is no edema. She has a diffuse small papular rash noted. IMPRESSION 1. Dermatitis: Concerns of drug-induced. I would suggest to discontinue all antibiotics. Discontinue gabapentin. She is currently on low-dose prednisone. Local hydrocortisone ointment for the patient and calamine lotion. 2. Diabetes mellitus. 3. End-stage renal disease, on hemodialysis. 4. Can reduce the prednisone to 5 mg p.o. daily. Will follow with you. TOÑITO NATH MD Job#: [id number] RI
--- NOTE | 2018-09-24 18:40 | NUR ---
consent signed. daughter at bedside.
[2018-09-24] MEDS ORDERED: PROPOFOL IV EMULSION 10 MG/ML 20 ML VIAL ONE (19:19)
[2018-09-24] MEDS ORDERED: LIDOCAINE HCL 2% LOCAL INJ 5 ML SDV VIAL INJ ONE (19:19)
--- NOTE | 2018-09-24 19:20 | NUR ---
REPORT TAKEN FROM AM RN.WALKING ROUNDS DONE.STABLE CONDITION.
--- NOTE | 2018-09-24 19:40 | NUR ---
report given to oncoming nurse, for continued care.
--- NOTE | 2018-09-24 21:00 | NUR ---
ASSESSMENT DONE.NO RESP.DISTRESS.NO PAIN VOICED.IV IS NOT PATENT.CHARGE NURSE STARTED NEW IV @ R.WRIST#20.BP CHECKED AND NOTED 152/68 MMOF HG.AMBULATES WITH WALKER .VOIDED.BED ALARM ON.BED LOCKED AND IN LOWEST POSITION.PHONE AND CALL LIGHT WITHIN REACH.INSTRUCTED TO CALL FOR ASSISTANCE NEEDED.
[2018-09-25] VITALS (8 sets, daily range): BP systolic 127–168; BP diastolic 59–83
--- NOTE | 2018-09-25 01:07 | NUR ---
MAINTAINING NPO FOR L.AV FISTULA TOMORROW
--- NOTE | 2018-09-25 06:20 | NUR ---
PT OFF THE UNIT FOR PROCEDURE IN A STRETCHER IN A STABLE CONDITION.
[2018-09-25 06:29] LABS: BASOPHILS % 0.2 % (0.0-1.0); EOSINOPHILS # (AUTO) 0.1 (0.0-0.4); EOSINOPHILS % 0.6 % (0.0-6.0); HEMATOCRIT 28.9 % (34.2-44.1); HEMOGLOBIN 8.8 g/dL (12.0-16.0); LYMPHOCYTES # (AUTO) 1.3 (1.0-3.2); LYMPHOCYTES % 12.5 % (18.0-39.1); MEAN CORPUSCULAR HEMOGLOBIN 29.4 pg (28-32); MEAN CORPUSCULAR HGB CONC 30.4 g/dL (31-35); MEAN CORPUSCULAR VOLUME 96.7 fL (81-99); MONOCYTES # (AUTO) 0.6 (0.2-0.8); MONOCYTES % 6.1 % (4.4-11.3); NEUTROPHILS # (AUTO) 8.1 (2.1-6.9); NEUTROPHILS % 78.7 % (38.7-80.0); PLATELET COUNT 136 x10e3/uL (140-360); RED BLOOD COUNT 2.99 x10e6/uL (3.6-5.1); RED CELL DISTRIBUTION WIDTH 14.7 % (11.7-14.4)
[2018-09-25] MEDS ORDERED: SODIUM CHLORIDE 0.9% 50ML 100 ML ONE (06:38)
[2018-09-25] MEDS ORDERED: HEPARIN SOD (PORCINE) 5,000 UNIT/ML VIAL ONE (06:38)
[2018-09-25] MEDS ORDERED: BUPIVACAINE 0.5%/EPI 30 ML SDV INJ ONE (06:42)
[2018-09-25 06:54] LABS: ALBUMIN 2.2 g/dL (3.5-5.0); ANION GAP 13.1 mmol/L (8-16); CALCIUM 7.9 mg/dL (8.4-10.2); CREATININE, SERUM 3.77 mg/dL (0.57-1.11); POTASSIUM 5.1 mmol/L (3.5-5.1)
--- NOTE | 2018-09-25 07:00 | NUR ---
REPORT GIVEN TO THE ONCOMING RN.
[2018-09-25] MEDS: INSULIN REGULAR, HUMAN 100 UNIT/1 ML 3ML VIAL SQ SCH ×4 (07:30→21:00)
[2018-09-25] MEDS ORDERED: HYDROCODONE/APAP 5MG-325MG TAB PO PRN (08:15)
[2018-09-25] MEDS ORDERED: MORPHINE SULFATE INJ 4 MG/ML INJ 1ML IV PRN (08:15)
[2018-09-25] MEDS ORDERED: MORPHINE SULFATE 2 MG/ML SYR 1ML IV PRN (08:15)
--- NOTE | 2018-09-25 08:48 | NUR ---
IMM EXPLAINED, SIGNED AND ON CHART COPY IN PT'S CARE TRANSITION FOLDER
--- NOTE | 2018-09-25 08:55 | NUR ---
RECEIVED REPORT FROM LADONNA IN PACU . PT RECEIVED AN AV GISELLA. AWAITING FOR PT TO ARRIVE TO UNIT
[2018-09-25] MEDS: ASPIRIN 81 MG CHEW TAB PO SCH (09:00)
--- NOTE | 2018-09-25 09:15 | NUR ---
PT BACK FROM SX. PT IS AA0X3 BUT DROWSY, STATES SHE HAS PAIN TO LEFT ARM S/P LEFT FISTULA. WILL GIVEN PRN PAIN MED GIVEN. SITE IS DRESSED AND DRY. PT FAMILY IS AT BEDSIDE. DIALYSIS NURSE IS AT BEDSIDE. V.S TAKEN .WILL GIVE MORNING MEDS AFTER DIALYSIS IS COMPLETE. SIDE RAILSX2, BED WHEELS LOCKED, CALL LIGHT IS WITHIN EASY REACH, INSTRUCTED TO CALL FOR ASSISTANCE IF NEEDED
--- NOTE | 2018-09-25 09:26 | Operative Report ---
DATE OF PROCEDURE: September 25, 2018 PREOPERATIVE DIAGNOSIS: End-stage renal disease. POSTOPERATIVE DIAGNOSIS: End-stage renal disease. PROCEDURE: Creation of left arm primary brachiobasilic arteriovenous fistula. POLITICAL SCIENCE RESEARCH ASSISTANT: None. ANESTHESIA: General. INDICATIONS AND FINDINGS: The patient is a 73-year-old female with end-stage renal disease and needs access for long-term hemodialysis. At surgery, the cephalic vein was found to be thrombosed. There was an adequate basilic vein, which was used for the fistula. At the end of the procedure, there were a palpable thrill over the fistula and palpable pulse in the brachial artery distal to the fistula. TECHNIQUE: After adequate general anesthesia, with the patient in the supine position, the left arm was prepped and draped in a sterile fashion with ChloraPrep solution. A transverse incision was made in the antecubital area and carried down through the subcutaneous tissue. The cephalic vein was identified. As this was dissected free, it was found to be thrombosed and fibrotic just proximal to the antecubital area. Incision was extended medially. The basilic vein was identified. This was found to be adequate for a fistula. It was dissected free proximally and distally. Side branches were ligated with Hemoclips. Just lateral to this, the incision was carried deeper, and the brachial artery was dissected free and controlled with vessel loops. The basilic vein was then divided as distally as possible. The distal portion was ligated with Hemoclips. A #3 Gricelda catheter was passed through the vein. It passed easily without resistance. The vein was fashioned appropriately for anastomosis. Patient was then given 5,000 units of intravenous heparin. Brachial artery was clamped proximally and distally. Arteriotomy was made. Anastomosis was made between the end of the vein and the side of the artery with a running suture of 6-0 Prolene. Once flow was allowed through the fistula, there were a palpable thrill over the fistula and a palpable pulse in the brachial artery distal to the fistula. Hemostasis was seen to be adequate. The wound was then closed with 3-0 Vicryl in the subcutaneous tissue and joseline for the skin. Sterile dressing was applied. Patient tolerated the procedure well. Estimated blood loss was 10 mL. There were no complications. All counts were correct. Patient was taken to the recovery room in satisfactory condition. Job#: [id number] cc:ELA EDWARD MD
--- NOTE | 2018-09-25 09:31 | Consultation ---
DATE OF CONSULTATION: September 25, 2018 REFERRING PHYSICIANS: Dr. Gage and Dr. Ibarra HISTORY OF PRESENT ILLNESS: The patient is a 73-year-old female with previous partial left nephrectomy who has end-stage renal disease. She needs access for long-term hemodialysis. Patient was admitted to the hospital with a rash and some shortness of breath. She is currently dialyzed via a catheter. PAST MEDICAL HISTORY: Significant for hypertension, diabetes, gastroesophageal reflux disease, previous TIA, end stage renal disease. She had previous partial left nephrectomy, hysterectomy, and bilateral carpal tunnel surgery. MEDICATIONS: Listed in the chart. ALLERGIES: SHE HAS NO KNOWN ALLERGIES. FAMILY HISTORY: Noncontributory. SOCIAL HISTORY: The patient does not smoke cigarettes and does not drink alcohol. REVIEW OF SYSTEMS: As stated above. Her rash has improved. PHYSICAL EXAMINATION: The patient is awake and alert, in no distress. The vital signs are normal. Significant findings: In the left arm, there is a palpable radial and brachial pulse. There is some ecchymosis in several areas. There appears to be adequate cephalic vein in the antecubital area for a fistula. ASSESSMENT: A 73-year-old female with end-stage renal disease, needs access for hemodialysis. PLAN: Left arm arteriovenous fistula. Procedure was explained to the patient. Thank you for asking me to see Ms. Gonzalez. Job#: [id number]
[2018-09-25] MEDS ORDERED: EPOETIN ALFA 10000 UNIT/ML VIAL SC SCH (10:00)
[2018-09-25] MEDS ORDERED: SODIUM CHLORIDE 0.9% 1000ML 2,000 ML IV PRN (11:00)
[2018-09-25] MEDS ORDERED: HEPARIN SOD (PORCINE) 1000 UNIT/ML SDV IV PRN (11:00)
--- NOTE | 2018-09-25 11:30 | NUR ---
rapid called due to pt left av fistula bleeding. pressure dressing reapplied, er spoke with md elizabeth who said to watch site (readressing for now is ok) no other interventions orders. pt v/a are within normal limits. pt is in no s.s of distress. hd treatment stopped per md ferrer order according to hd dialysis nurse who spoke with him. md terrell notified of occurrence. will continue to monitor site closely
--- NOTE | 2018-09-25 11:30 | NUR ---
ASSESSMENT: Spiritual concern [employer] Counter Associate responded to Rapid Response. Pt's niece in hallway during response. Intervention: Provided calming pastoral presence. Outcome: No need to follow at this time. [facility] Department O: [phone] Pager: [phone] ([phone] number calling from)
[2018-09-25] MEDS: CLOBETASOL 0.05% CREAM 45GMS 1 EA/15 GM TUBE TOP SCH (11:48)
[2018-09-25] MEDS: CALAMINE LOTION 4 OZ BOTTLE TP SCH ×3 (12:09→21:43)
[2018-09-25] MEDS: PREDNISONE 10 MG TAB PO SCH ×2 (12:09→17:11)
[2018-09-25] MEDS: PANTOPRAZOLE SOD 40 MG TABEC PO SCH (12:09)
[2018-09-25] MEDS: IRON SUCROSE 100 MG in SODIUM CHLORIDE 0.9% 100 ML 100 ML IV SCH (12:10)
--- NOTE | 2018-09-25 12:19 | NUR ---
reassessed site . site is clean and dry.
--- NOTE | 2018-09-25 12:40 | NUR ---
reassesed site. blood noted on site . pressure applied , redressed, bruit heard upon auscultation , will monitor pt closely
[2018-09-25] MEDS: DIPHENHYDRAMINE HCL 25 MG CAP PO PRN ×2 (17:11→22:14)
[2018-09-25] MEDS ORDERED: CEFAZOLIN SOD 1 GM VIAL ONE (17:51)
[2018-09-25] MEDS ORDERED: PROPOFOL IV EMULSION 10 MG/ML 20 ML VIAL ONE (17:51)
[2018-09-25] MEDS ORDERED: ONDANSETRON HCL INJ 2MG/ML 2ML 2 MG/ML VIAL ONE (17:51)
[2018-09-25] MEDS ORDERED: LIDOCAINE HCL 2% LOCAL INJ 5 ML SDV VIAL INJ ONE (17:51)
[2018-09-25] MEDS ORDERED: VASOPRESSIN INJ 20 UNIT/ML VIAL ONE (17:51)
[2018-09-25] MEDS ORDERED: SEVOFLURANE INHAL SOLN 250 ML PEN BTL ONE (17:51)
--- NOTE | 2018-09-25 19:00 | NUR ---
REPORT TAKEN FROM AM RN.WALKING ROUNDS DONE.NO BLEEDING FROM L.AV FISTULA SITE.STABLE CONDITION.
--- NOTE | 2018-09-25 19:58 | NUR ---
BLOOD SUGAR 224.PT REFUSED TO TAKE SLIDING SCALE HUMULIN R.NOTIFIED TO HEALTH EDUCATION AIDE OF MD BALTAZAR.
--- NOTE | 2018-09-25 23:00 | NUR ---
HAS ITCHING.MEDICATED WITH BENADRYL PO.ASSESSMENT DONE.NO RESP.DISTRESS.PAIN VOICED4/10 @ L.AV FISTULA SITE.PT REFUSED TO TAKE PAIN MEDICATION.HAD SMALL AMOUNT OF BM.BED LOCKED AND IN LOWEST POSITION.PHONE NAD CALL LIGHT WITHIN REACH.INSTRUCTED TO CALL FOR ASSISTANCE NEEDED.
[2018-09-26] VITALS: BP 153/73
[2018-09-26] MEDS: DIPHENHYDRAMINE HCL 25 MG CAP PO PRN (02:23)
[2018-09-26 04:00] VITALS: BP 151/67
[2018-09-26 06:30] LABS: BASOPHILS % 0.1 % (0.0-1.0); EOSINOPHILS % 0.2 % (0.0-6.0); HEMATOCRIT 26.4 % (34.2-44.1); HEMOGLOBIN 8.1 g/dL (12.0-16.0); LYMPHOCYTES # (AUTO) 1.5 (1.0-3.2); MEAN CORPUSCULAR HGB CONC 30.7 g/dL (31-35); MEAN CORPUSCULAR VOLUME 97.8 fL (81-99); MONOCYTES # (AUTO) 0.7 (0.2-0.8); MONOCYTES % 5.8 % (4.4-11.3); NEUTROPHILS % 77.9 % (38.7-80.0); PLATELET COUNT 116 x10e3/uL (140-360)
[2018-09-26 06:48] LABS: ALBUMIN 2.2 g/dL (3.5-5.0); ALBUMIN/GLOBULIN RATIO 0.9 (0.8-2.0); ANION GAP 12.6 mmol/L (8-16); CALCIUM 7.8 mg/dL (8.4-10.2); CREATININE, SERUM 2.9 mg/dL (0.57-1.11); POTASSIUM 4.6 mmol/L (3.5-5.1)
--- NOTE | 2018-09-26 07:02 | NUR ---
REPORT GIVEN TO THE ONCOMING RN.WALKING ROUNDS DONE.STABLE CONDITION.
[2018-09-26] MEDS: INSULIN REGULAR, HUMAN 100 UNIT/1 ML 3ML VIAL SQ SCH ×3 (07:30→16:30)
[2018-09-26 08:13] VITALS: BP 141/74
[2018-09-26] MEDS: CLOBETASOL 0.05% CREAM 45GMS 1 EA/15 GM TUBE TOP SCH (08:22)
[2018-09-26] MEDS: CALAMINE LOTION 4 OZ BOTTLE TP SCH ×2 (08:22→17:20)
[2018-09-26 08:23] VITALS: BP 141/74
[2018-09-26 11:52] VITALS: BP 127/65
--- NOTE | 2018-09-26 12:15 | NUR ---
dialysis complete pt bp is 123/62 with hr of 86 900ml of fluid removed.
[2018-09-26] MEDS: ASPIRIN 81 MG CHEW TAB PO SCH (12:32)
[2018-09-26] MEDS: PANTOPRAZOLE SOD 40 MG TABEC PO SCH (12:32)
[2018-09-26] MEDS: IRON SUCROSE 100 MG in SODIUM CHLORIDE 0.9% 100 ML 100 ML IV SCH (12:32)
[2018-09-26] MEDS: PREDNISONE 10 MG TAB PO SCH ×2 (12:32→17:20)
[2018-09-26] MEDS ORDERED: CALAMINE LOTIO177 ML TP (12:51)
[2018-09-26] MEDS ORDERED: PANTOPRAZOLE SO40 MG PO (12:51)
[2018-09-26] MEDS ORDERED: PREDNISONE10 MG PO (12:51)
[2018-09-26] MEDS ORDERED: Clobetasol 0.05% Cream 45GMS TOP (12:51)
--- NOTE | 2018-09-26 13:06 | NUR ---
Received call from Mandy with [facility] requesting update on discharge date. Informed her anticipating discharge today and pt is currently on HD. She stated pt can come in today at 4pm or tomorrow at 2pm to fill out paperwork and will start on Sunday. Informed pt and family at bedside.
--- NOTE | 2018-09-26 13:24 | NUR ---
spoke with md ferrer regarding pt going home. wants to see pt before going home. held dc at this time
--- NOTE | 2018-09-26 15:15 | NUR ---
PT REPORT BLEEDING TO FISTULA. ASSESSED SITE. MINIMAL OOZING NOTED ON SITE . MULTIPLE 4X4 GAUZE PLACED WITH KOBALEXI ON SITE. SPOKE WITH MD WRIGHT STATES PT IS OK TO GO HOME . HAVE PT DRESS SITE AND LEAVE OPEN AFTER 48 HOURS. PT MAY SHOWER AT HOME.
[2018-09-26 16:01] VITALS: BP 143/65
--- NOTE | 2018-09-26 17:20 | NUR ---
SPOKE WITH MD EDWARD . OK DISCHARGE AT THIS TIME
--- NOTE | 2018-09-26 17:42 | NUR ---
DISCHARGE INSTRUCTIONS GIVEN, AND PRESCRIPTIONS. PT VERBALIZED UNDERSTANDING .PT RIGHT EJ REMOVED. DRY DRESSING APPLIED AND TAPED. PT LEFT FISTULA IS DRY AND INTACT. BRUIT PRESENT . PT IS READY FOR DC AT THIS TIME. WAITING FOR RIDE HOME
--- NOTE | 2018-09-26 18:37 | NUR ---
PT OFF UNIT VIA WHEEL CHAIR TO HOME
--- NOTE | 2018-09-26 20:47 | Discharge Summary ---
ADMISSION DIAGNOSES: 1. End-stage renal disease. 2. Hypertension. 3. Type 2 diabetes. 4. Gastroesophageal reflux disease. 5. Peripheral neuropathy. 6. Urinary tract infection. 7. Generalized body rash. 8. Ambulatory dysfunction. 9. Hypocalcemia. DISCHARGE DIAGNOSES: 1. End-stage renal disease. 2. Hypertension. 3. Type 2 diabetes. 4. Gastroesophageal reflux disease. 5. Peripheral neuropathy. 6. Urinary tract infection. 7. Generalized body rash. 8. Ambulatory dysfunction. 9. Hypocalcemia. 10. Gastritis and esophagitis. HISTORY: Patient has a history of hypertension, peripheral neuropathy, type 2 diabetes, GERD, CKD 5, TIA. SURGICAL HISTORY: Left partial nephrectomy in November 2017, hysterectomy, bilateral carpal tunnel release. FAMILY HISTORY: Patient's brother and sister have cancer. SOCIAL HISTORY: Patient admits to smoking cigarettes about 1 pack per week. She denies alcohol and illicit drug use. HOSPITAL COURSE: [age]lg[age]-old female has left partial nephrectomy in November 2017. She was advised to start dialysis, but refused. She started having generalized body rash since then as well. She refuses any change in soaps, lotions, and diet. She also complains of shortness of breath and dyspnea for the last month. She denies oliguria, dysuria, hematuria, edema, and fever. She was supposed to have an EGD with Dr. Jeffries, but was sent to the ER instead due to her worsening renal function. On admission, patient's creatinine was 8.15. Chest x-ray showed no acute cardiopulmonary abnormality. GFR was 5. Urine culture came back negative. Nephrology was consulted who placed a right chest temporary catheter for dialysis. Patient had a few sessions with dialysis prior to discharge. She had dialysis chair arranged at time of discharge. She had an EGD on September 24 which showed esophagitis and gastritis. She was started on Protonix. She then had AV fistula placed on the left arm on September 25, 2018 per surgery. Patient tolerated procedure well. Per wound care MD, the rash appears to be related to a SULFA ALLERGY, so patient was advised to stop Lasix, Amaryl, and any sulfa-related medication. Family questioned the diagnosis, so they requested infectious disease consult. Infectious disease agreed with wound care MD on the SULFA ALLERGY. Patient was started on prednisone, clobetasol, and calamine lotion. The rash was improving, but per wound care MD, it will take up to 6 weeks to resolve. Patient and family understand discharge instructions and agreed to plan. Dictated by Klarissa Santillan NP KASHMIR KIM MD Job#: [id number]
== END 2018-09-26 18:30 | disposition home or self-care (01) | DRG 673 ==
LOC: ER 07:52 → ERHOLD 12:16 → MED/SURG 15:22
PROVIDERS: ADMIT Internal Medicine; ATTEND Internal Medicine
PROC: 5A1D70Z Performance of Urinary Filtration, Intermittent, Less than 6 Hours Per Day (ICD-10-PCS; 2018-09-20)
PROC: 5A1D70Z Performance of Urinary Filtration, Intermittent, Less than 6 Hours Per Day (ICD-10-PCS; 2018-09-21)
PROC: 5A1D70Z Performance of Urinary Filtration, Intermittent, Less than 6 Hours Per Day (ICD-10-PCS; 2018-09-23)
PROC: 05BC0ZZ Excision of Left Basilic Vein, Open Approach (ICD-10-PCS; 2018-09-25)
PROC: 5A1D70Z Performance of Urinary Filtration, Intermittent, Less than 6 Hours Per Day (ICD-10-PCS; 2018-09-25)
PROC: 031809D Bypass Left Brachial Artery to Upper Arm Vein with Autologous Venous Tissue, Open Approach (ICD-10-PCS; principal; 2018-09-25 07:12)
PROC: 5A1D70Z Performance of Urinary Filtration, Intermittent, Less than 6 Hours Per Day (ICD-10-PCS; 2018-09-26)
DX: I12.0 Hypertensive chronic kidney disease with stage 5 chronic kidney disease or end stage renal disease (principal); N18.6 End stage renal disease; N39.0 Urinary tract infection, site not specified; E11.22 Type 2 diabetes mellitus with diabetic chronic kidney disease; E11.65 Type 2 diabetes mellitus with hyperglycemia; Z99.2 Dependence on renal dialysis; Z91.15 Patient's noncompliance with renal dialysis; Z79.4 Long term (current) use of insulin; Z86.73 Personal history of transient ischemic attack (TIA), and cerebral infarction without residual deficits; F17.210 Nicotine dependence, cigarettes, uncomplicated; E11.42 Type 2 diabetes mellitus with diabetic polyneuropathy; L30.9 Dermatitis, unspecified; E11.319 Type 2 diabetes mellitus with unspecified diabetic retinopathy without macular edema
CPT/HCPCS: 36415; 43239; 71045; 74470; 80048; 80053; 81001; 82140; 82550; 82553; 82948; 83036; 83690; 83735; 83880; 84132; 84484; 85025; 85610; 86704; 86705; 86706; 87086; 87340; 88305; 88312; 90962; 93005; 96365; 97139; 99284; J0690; J0696; J1200; J1644; J1756; J2001; J2250; J2270; J2405; J7030; J7040; J7070; J7512; J7799; Q4081

== ENCOUNTER → 2018-11-05 | Day surgery (SDC) | payer MEDICARE ==
[~2018-11-05] MED LIST changes: +ASPIR 8181 MG PO; +BACITRACIN 50,000 UNIT VIAL ONE; +BENADRYL25 M1 PO; +CALAMINE LOTIO177 ML TP; +CEFAZOLIN SOD 1 GM/NS 50ML 50 ML IV ONE; +Clobetasol 0.05% Cream 45GMS TOP; +DEXAMETHASONE SOD PHOS INJ 4 MG/ML VIAL ONE; +FENTANYL CITRATE/PF 100MCG/2 ML INJ ONE; +FUROSEMIDE40 MG PO; +HEPARIN SOD (PORCINE) 5,000 UNIT/ML VIAL ONE; +LIDOCAINE HCL 1% LOCAL INJ 20 ML VIAL ONE; +LIDOCAINE HCL 2% LOCAL INJ 5 ML SDV VIAL INJ ONE; +PANTOPRAZOLE SO40 MG PO; +PREDNISONE10 MG PO; +PROPOFOL IV EMULSION 10 MG/ML 20 ML VIAL ONE; +SEVOFLURANE INHAL SOLN 250 ML PEN BTL ONE; +SODIUM CHLORIDE 0.9% 500ML 0 ML ONE; +SODIUM CHLORIDE 0.9% 500ML 500 ML ONE
[2018-11-05 06:32] LABS: BASOPHILS % 0.4 % (0.0-1.0); EOSINOPHILS # (AUTO) 0.2 (0.0-0.4); EOSINOPHILS % 1.8 % (0.0-6.0); HEMATOCRIT 37.8 % (34.2-44.1); HEMOGLOBIN 11.3 g/dL (12.0-16.0); LYMPHOCYTES % 10.6 % (18.0-39.1); MEAN CORPUSCULAR HEMOGLOBIN 31.5 pg (28-32); MEAN CORPUSCULAR HGB CONC 29.9 g/dL (31-35); MEAN CORPUSCULAR VOLUME 105.3 fL (81-99); MONOCYTES # (AUTO) 0.6 (0.2-0.8); MONOCYTES % 6.3 % (4.4-11.3); NEUTROPHILS % 77.9 % (38.7-80.0); PLATELET COUNT 188 x10e3/uL (140-360); RED BLOOD COUNT 3.59 x10e6/uL (3.6-5.1); RED CELL DISTRIBUTION WIDTH 17.4 % (11.7-14.4)
[2018-11-05 06:44] LABS: INR 0.91; PARTIAL THROMBOPLASTIN TIME 40.5 seconds (23.8-35.5); PROTHROMBIN TIME 12.7 seconds (11.9-14.5)
[2018-11-05 06:53] LABS: ANION GAP 17.5 mmol/L (8-16); CALCIUM 9.1 mg/dL (8.4-10.2); CREATININE, SERUM 2.66 mg/dL (0.57-1.11)
[2018-11-05 07:01] LABS: POTASSIUM 5.5 mmol/L (3.5-5.1)
[2018-11-05 09:42] VITALS: BP 114/58
--- NOTE | 2018-11-05 15:23 | Operative Report ---
DATE OF PROCEDURE: 11/05/2018 SURGEON: Douglas Xiao MD PREOPERATIVE DIAGNOSIS: End-stage renal disease. POSTOPERATIVE DIAGNOSIS: End-stage renal disease. PROCEDURE: Creation of left forearm primary arteriovenous fistula. SUBSTATION WIREMAN: None. ANESTHESIA: General. INDICATIONS AND FINDINGS: The patient is a 73-year-old female with end-stage renal disease. The previous left arm AV fistula did not develop or occluded. At surgery, was found to have adequate cephalic vein in the forearm, which was found to be patent and there was a palpable pulse in the radial artery. During the procedure, there was a palpable thrill over the fistula, palpable pulse in the radial artery distal to the fistula. TECHNIQUE: After adequate general anesthesia with the patient in supine position, the left arm was prepped and draped in a sterile fashion with ChloraPrep solution. Initial plan was to do a graft. However, examination of the arm revealed adequate vein in the forearm, that appeared good caliber and adequate for fistula. Incision was made over this area in the vein, which was about 3 mm in diameter, dissected free proximally and distally. Side branches ligated with hemoclips. More medially, the incision was carried deeper and the radial artery was dissected free and controlled with vessel loop. The vein was then divided as distally as possible. A #3 Gricelda catheter was passed through the vein and passed easily without resistance. The vein was fashioned appropriately for fistula. The patient was given 5000 units of intravenous heparin. The radial artery was clamped proximally and distally. Arteriotomy was made. There was good flow through the artery. Anastomosis made between the end of the vein and side of the artery using running suture of 7-0 Prolene. Once flow was allowed through the fistula, there was a palpable thrill over the fistula and palpable pulse in the radial artery distal to the fistula. Hemostasis was seen to be adequate. Wound was irrigated with saline, inspected for hemostasis, which was seen to be adequate. The wound was then closed. The subcutaneous tissue was closed with running suture of 3-0 Vicryl. Skin was closed with a running subcuticular suture of 4-0 Vicryl. A sterile dressing was applied. The patient tolerated procedure well. Estimated blood loss was 20 mL. There were no complications. All counts were correct. The patient was taken to the recovery room in satisfactory condition. Douglas MD SUSAN Dinh/NESTOR /[id number]
== END | disposition home or self-care (01) ==
LOC: OR 05:11
PROVIDERS: ATTEND Surgery
DX: I12.0 Hypertensive chronic kidney disease with stage 5 chronic kidney disease or end stage renal disease (principal); N18.6 End stage renal disease; Z01.812 Encounter for preprocedural laboratory examination; Z01.810 Encounter for preprocedural cardiovascular examination; Z88.2 Allergy status to sulfonamides; Z88.8 Allergy status to other drugs, medicaments and biological substances; Z99.2 Dependence on renal dialysis; Z79.82 Long term (current) use of aspirin; E11.22 Type 2 diabetes mellitus with diabetic chronic kidney disease
CPT/HCPCS: 36415; 36821; 80048; 82948; 85025; 85610; 85730; J0690; J1644; J7040; J1100; J2001

== ENCOUNTER 2018-12-25 18:02 | Inpatient (IN) | payer MEDICARE, OTHER ==
[~2018-12-25] VITALS: Ht 154.9 cm; Wt 66.7 kg
[~2018-12-25 18:02] MED LIST changes: -BACITRACIN 50,000 UNIT VIAL ONE; -CEFAZOLIN SOD 1 GM/NS 50ML 50 ML IV ONE; -DEXAMETHASONE SOD PHOS INJ 4 MG/ML VIAL ONE; -FENTANYL CITRATE/PF 100MCG/2 ML INJ ONE; -HEPARIN SOD (PORCINE) 5,000 UNIT/ML VIAL ONE; -LIDOCAINE HCL 1% LOCAL INJ 20 ML VIAL ONE; -LIDOCAINE HCL 2% LOCAL INJ 5 ML SDV VIAL INJ ONE; -PROPOFOL IV EMULSION 10 MG/ML 20 ML VIAL ONE; -SEVOFLURANE INHAL SOLN 250 ML PEN BTL ONE; -SODIUM CHLORIDE 0.9% 500ML 0 ML ONE; -SODIUM CHLORIDE 0.9% 500ML 500 ML ONE
[2018-12-25] MEDS ORDERED: ACETAMINOPHEN 120 MG SUPP PR ONE (19:43)
[2018-12-25] MEDS ORDERED: ACETAMINOPHEN 325 MG SUPP PR ONE (19:45)
[2018-12-25] MEDS ORDERED: CEFTRIAXONE SOD 2 GM/NS 100 ML 100 ML IV ONE (20:15)
[2018-12-25] MEDS ORDERED: CEFTRIAXONE SOD 1 GM VIAL ONE (20:23)
--- NOTE | 2018-12-25 20:34 | Diagnostic Imaging Report ---
History:Incoherent Comparison studies: None Technique: Axial images were obtained from the skull base to the vertex. Coronal and sagittal images reconstructed from the axial data. Dose modulation, iterative reconstruction, and/or weight based adjustment of the mA/kV was utilized to reduce the radiation dose to as low as reasonably achievable. Intravenous contrast: None Findings: Scalp/skull: No abnormalities. Extra-axial spaces: No masses. No fluid collections. Brain sulci: Mildly prominent. Ventricles: Mild compensatory dilatation. No hydrocephalus. Parenchyma: Follow-up hypodensities in the supratentorial white matter are small vessel ischemic changes. No masses, hemorrhage, acute or chronic cortical vascular insults. Sellar/suprasellar region: No abnormalities. Craniocervical junction: Patent foramen magnum. No Chiari one malformation. Incidental findings: Atherosclerotic calcifications in the carotid siphons . 2 mm sessile osteoma projects into the scalp from the outer table of the left frontal bone (series 3, image 10) Impression: No acute abnormalities. Chronic findings: 1. Mild generalized volume loss. 2. Mild supratentorial white matter small vessel ischemic changes. Signed by: Dr. Timbo Negrete M.D. on 12/25/2018 8:30 PM
[2018-12-25] MEDS ORDERED: DEXTROSE 50% SYRINGE 50 ML IV PRN (20:45)
[2018-12-25] MEDS ORDERED: MORPHINE SULFATE 2 MG/ML SYR 1ML IV PRN (20:45)
[2018-12-25] MEDS ORDERED: SODIUM CHLORIDE FLUSH 10 ML SYR INJ PRN (20:45)
[2018-12-25] MEDS ORDERED: ONDANSETRON HCL INJ 2MG/ML 2ML 2 MG/ML VIAL IV PRN (20:45)
[2018-12-25] MEDS: INSULIN REGULAR, HUMAN 100 UNIT/1 ML 3ML VIAL SQ SCH (21:00)
--- NOTE | 2018-12-25 21:15 | Diagnostic Imaging Report ---
A single frontal view of the chest. HISTORY: Sepsis COMPARISON: Chest radiograph the 2018 DISCUSSION: Portable technique, limits sensitivity of the exam. Soft tissue attenuation partially limits sensitivity of the exam. Multiple overlying monitoring leads. Tubes/Lines: Right approach dual lumen dialysis catheter, the distal tip projects in the region of the proximal right atrium. Lungs and pleura: Low lung volumes result in bibasilar vascular crowding, accentuation of the pulmonary interstitial markings, central pulmonary vasculature, and the cardiac silhouette. Allowing for these limitations, the findings are as follows: No evidence of a consolidative pneumonia or pulmonary alveolar edema. No definite pleural effusion or pneumothorax is identified. Heart and mediastinum: The cardiomediastinal silhouette appears unremarkable. Bones and soft tissues: Diffusely decreased mineralization of the osseous structures limits bone detail. Findings compatible with chronic full-thickness right rotator cuff tear. IMPRESSION: 1. No acute radiographic abnormality. 2. Diffuse osseous demineralization. 3. Chronic right full-thickness rotator cuff tear. Signed by: Dr. Zeke Sams D.O., M.M.M. on 12/25/2018 9:12 PM
[2018-12-25] MEDS ORDERED: DEXTROSE 50% SYRINGE 50 ML IV ONE ×2 (21:16→21:30)
[2018-12-25] MEDS ORDERED: INSULIN REGULAR, HUMAN 100 UNIT/1 ML 3ML VIAL ONE (21:30)
[2018-12-25] MEDS ORDERED: INSULIN REGULAR, HUMAN 100 UNIT/1 ML 3ML VIAL IV ONE ×2 (21:30→22:45)
[2018-12-25] MEDS ORDERED: CALCIUM CHLORIDE 10% SYRINGE 20 ML IV ONE (21:30)
[2018-12-25] MEDS ORDERED: CALCIUM GLUCONATE 10% INJ 9.3 MEQ in SODIUM CHLORIDE 0.9% 100 ML 100 ML IV ONE (21:30)
[2018-12-25] MEDS ORDERED: MORPHINE SULFATE INJ 4 MG/ML INJ 1ML IV PRN (21:30)
[2018-12-25] MEDS ORDERED: SODIUM CHLORIDE 0.9% 100 ML 100 ML ONE (21:31)
[2018-12-25] MEDS ORDERED: VANCOMYCIN 1GM/NS 250 ML 250 ML IV SCH (22:15)
[2018-12-25 22:38] VITALS: BP 115/63
[2018-12-25] MEDS ORDERED: DEXTROSE 50% SYRINGE 50 ML IV STA (22:43)
[2018-12-25] MEDS ORDERED: CALCIUM GLUCONATE 10% INJ 4.65 MEQ in SODIUM CHLORIDE 0.9% 50ML 50 ML IV ONE (22:45)
[2018-12-25] MEDS ORDERED: SOD POLYSTYRENE SULFONATE SUSP 15 GM/60 ML BTL PO ONE (22:45)
[2018-12-25] MEDS ORDERED: CALCIUM GLUCONATE 10% INJ 0.465 MEQ/ML VIAL ONE (22:49)
[2018-12-25 23:00] VITALS: BP 122/50
[2018-12-25] MEDS ORDERED: HEPARIN SOD (PORCINE) 1000 UNIT/ML SDV ONE (23:21)
--- NOTE | 2018-12-25 23:21 | NUR ---
Patient arrived on unit at 2230. awake and alert. 1 amp D50, 6 units regular insulin and 1 GM Calcium Gluconate given IV on admission per orders of Dr. Ibarra
[2018-12-25] MEDS ORDERED: SODIUM CHLORIDE 0.9% 1000ML 1,000 ML ONE (23:23)
[2018-12-25 23:34] VITALS: BP 115/63
[2018-12-26] VITALS (20 sets, daily range): BP systolic 87–201; BP diastolic 49–171
[2018-12-26] MEDS: ACETAMINOPHEN 325 MG TAB PO PRN (03:00)
[2018-12-26 05:06] LABS: BASOPHILS % 0.3 % (0.0-1.0); EOSINOPHILS # (AUTO) 0.1 (0.0-0.4); EOSINOPHILS % 0.4 % (0.0-6.0); HEMATOCRIT 28.4 % (34.2-44.1); HEMOGLOBIN 8.6 g/dL (12.0-16.0); LYMPHOCYTES # (AUTO) 0.4 (1.0-3.2); LYMPHOCYTES % 2.7 % (18.0-39.1); MEAN CORPUSCULAR HEMOGLOBIN 32.5 pg (28-32); MEAN CORPUSCULAR HGB CONC 30.3 g/dL (31-35); MEAN CORPUSCULAR VOLUME 107.2 fL (81-99); MONOCYTES # (AUTO) 0.8 (0.2-0.8); MONOCYTES % 6.3 % (4.4-11.3); NEUTROPHILS # (AUTO) 11.7 (2.1-6.9); NEUTROPHILS % 88.8 % (38.7-80.0); PLATELET COUNT 148 x10e3/uL (140-360); RED BLOOD COUNT 2.65 x10e6/uL (3.6-5.1); RED CELL DISTRIBUTION WIDTH 20.5 % (11.7-14.4)
[2018-12-26 05:25] LABS: INR 1.01; PROTHROMBIN TIME 13.8 seconds (11.9-14.5)
[2018-12-26 05:26] LABS: PARTIAL THROMBOPLASTIN TIME 42.6 seconds (23.8-35.5)
[2018-12-26 05:41] LABS: ANION GAP 16.2 mmol/L (8-16); CALCIUM 9.6 mg/dL (8.4-10.2); CREATININE, SERUM 2.1 mg/dL (0.57-1.11); MAGNESIUM 1.7 MG/DL (1.3-2.1); PHOSPHORUS 2.2 MG/DL (2.3-4.7); POTASSIUM 4.2 mmol/L (3.5-5.1)
--- NOTE | 2018-12-26 06:09 | Diagnostic Imaging Report ---
Examination: Single AP view of the chest. COMPARISON: AP chest 12/25/2018 INDICATION: Evaluate chest, AMS IMPRESSION: 1. Lines and Tubes: Unchanged right tunnel dialysis catheter. 2. Lungs are relatively well-inflated. No consolidation or pulmonary edema. No effusion. 3. Cardiomediastinal silhouette is normal. Mild central venous congestion. 4. No acute bony abnormalities. Signed by: Dr. Kavin Cadena M.D. on 12/26/2018 6:06 AM
[2018-12-26] MEDS: INSULIN REGULAR, HUMAN 100 UNIT/1 ML 3ML VIAL SQ SCH ×4 (07:30→20:49)
[2018-12-26] MEDS: ASPIRIN 81 MG ENTERIC COATED PO SCH (09:00)
[2018-12-26] MEDS ORDERED: HYDRALAZINE HCL 20 MG/ML VIAL IV PRN (11:45)
[2018-12-26] MEDS ORDERED: BENZONATATE 100 MG CAP PO PRN (12:15)
[2018-12-26] MEDS ORDERED: CEFTRIAXONE SOD 1 GM VIAL IV SCH (12:15)
[2018-12-26] MEDS ORDERED: CEFTRIAXONE SOD 1 GM/NS 50 ML 50 ML IV SCH ×2 (13:00→17:15)
[2018-12-26 13:21] LABS: CLARITY,URINE SL CLOUDY (CLEAR); COLOR,URINE YELLOW (YELLOW); LEUKOCYTE ESTERASE ,URINE TRACE (NEGATIVE); NITRITE,URINE NEGATIVE (NEGATIVE); PROTEIN,URINE DIPSTICK 3+ (NEGATIVE)
[2018-12-26 13:22] LABS: BILIRUBIN,URINE NEGATIVE (NEGATIVE); KETONES,URINE NEGATIVE (NEGATIVE); URINE UROBILINOGEN 0.2 mg/dL (0.2 - 1)
[2018-12-26 13:32] LABS: BACTERIA,URINE MODERATE /HPF; EPITHELIAL CELLS,URINE MODERATE /LPF
[2018-12-26] MEDS: FAMOTIDINE 20 MG TAB PO SCH (16:56)
[2018-12-26] MEDS: GABAPENTIN 300 MG CAP PO SCH (16:56)
[2018-12-26] MEDS ORDERED: MAGNESIUM SULFATE 2GM/50ML 50 ML IV ONE (17:15)
--- NOTE | 2018-12-26 22:18 | NUR ---
PT TRANSFERED TO TELE FLOOR. HANDOFF REPORT GIVEN TO RN.
--- NOTE | 2018-12-26 22:20 | NUR ---
Pt transferred from ICU via stretcher. Alert and orient to name and place. Skin itching with generalized scabs x4 extremities. Contact Isolation for scabies. Legally blind. VSS. Denies pain at this time. Abdomen soft and nontender. Last BM 12/26/18. Riley 16Fr, patent flowing light alonzo urine. Canones to room. Call fields within reach. Bed low and locked. Bed alarm on. Will continue to monitor.
[2018-12-26] MEDS: DIPHENHYDRAMINE HCL 25 MG CAP PO PRN (23:23)
[2018-12-27] VITALS (8 sets, daily range): BP systolic 129–170; BP diastolic 60–83
--- NOTE | 2018-12-27 00:01 | Consultation ---
DATE OF CONSULTATION: 12/26/2018 HISTORY OF PRESENT ILLNESS: A 73-year-old female, well known to our Nephrology Service, presented to the urgent care center, found to have life-threatening hyperkalemia with EKG changes. Subsequently admitted to the ICU and underwent emergent dialysis early this morning and with successful results. Currently, awake, alert, resting, no apparent distress. Yesterday was her dialysis day. She is currently resting, in no apparent distress. PAST MEDICAL HISTORY: Type 2 diabetes, hypertension, end-stage renal disease, congestive heart failure. CURRENT MEDICATIONS: Vancomycin 1 g IV q.24 which I am going to stop at the moment given her ESRD status. She is on Tylenol p.r.n., received a dose of ceftriaxone, aspirin 81 mg daily, insulin sliding scale. Pantoprazole was stopped. SOCIAL HISTORY: Does not smoke or drink. FAMILY HISTORY: Significant for hypertension and diabetes. ALLERGIES: TO SULFA, FUROSEMIDE, AND GLIMEPIRIDE. IMAGING: Workup here includes a brain CT and chest x-ray. CT brain shows mild generalized volume loss. LABORATORY DATA: Current labs show improvement. Hemoglobin 8.6, white count 13.1. Potassium 4.2 and magnesium level 1.7. PHYSICAL EXAMINATION: GENERAL: Awake, alert, lying supine, in no apparent distress. VITAL SIGNS: Blood pressure 130/60, pulse rate 80. HEAD AND NECK: Corneal clear. Mucosa moist. LUNGS: Occasional bibasilar rales. HEART: S1, S2 audible. ABDOMEN: Otherwise soft, nontender. EXTREMITIES: Lower extremity examination shows no edema. IMPRESSION AND PLAN: Urine and blood cultures are pending. I will start her on ceftriaxone empirically. Await culture results. Volume status stable. Acute hyperkalemia and hyperkalemia emergency resolved. Please see orders. MD FRANCOIS Miller/MODL /[id number]
[2018-12-27 04:27] LABS: BASOPHILS % 0.3 % (0.0-1.0); EOSINOPHILS # (AUTO) 0.3 (0.0-0.4); EOSINOPHILS % 3.2 % (0.0-6.0); HEMATOCRIT 26.5 % (34.2-44.1); HEMOGLOBIN 8.2 g/dL (12.0-16.0); LYMPHOCYTES # (AUTO) 1.2 (1.0-3.2); LYMPHOCYTES % 11.9 % (18.0-39.1); MEAN CORPUSCULAR HEMOGLOBIN 32.8 pg (28-32); MEAN CORPUSCULAR HGB CONC 30.9 g/dL (31-35); MONOCYTES # (AUTO) 0.5 (0.2-0.8); NEUTROPHILS # (AUTO) 7.7 (2.1-6.9); NEUTROPHILS % 77.9 % (38.7-80.0); PLATELET COUNT 161 x10e3/uL (140-360); RED CELL DISTRIBUTION WIDTH 20.1 % (11.7-14.4)
[2018-12-27 04:55] LABS: ANION GAP 17.3 mmol/L (8-16); CALCIUM 9.1 mg/dL (8.4-10.2); MAGNESIUM 2.4 MG/DL (1.3-2.1); PHOSPHORUS 5.2 MG/DL (2.3-4.7)
[2018-12-27 04:57] LABS: CREATININE, SERUM 3.79 mg/dL (0.57-1.11); POTASSIUM 3.3 mmol/L (3.5-5.1)
[2018-12-27 05:04] LABS: B-TYPE NATRIURETIC PEPTIDE2 740.3 pg/mL (0-100)
[2018-12-27 05:18] LABS: FERRITIN 1005.8 ng/mL (4.63-204.00)
[2018-12-27 05:31] LABS: FOLATE 2.9 ng/mL (7.0-15.4)
[2018-12-27 06:28] LABS: ALBUMIN 2.5 g/dL (3.5-5.0); ALBUMIN/GLOBULIN RATIO 0.9 (0.8-2.0); ANION GAP 14.3 mmol/L (8-16); CREATININE, SERUM 4.11 mg/dL (0.57-1.11); POTASSIUM 3.3 mmol/L (3.5-5.1)
--- NOTE | 2018-12-27 07:00 | NUR ---
Pt alert and orient. Lying in bed HOB 30 degrees. Denies pain. No distress noted.
--- NOTE | 2018-12-27 07:04 | NUR ---
RECEIVED PATIENT RESTING IN BED. RESPIRATIONS EVEN AND UNLABORED, NO ACUTE DISTRESS NOTED. DENIES PAIN OR DISCOMFORT. CALL LIGHT WITHIN REACH. BED IN THE LOWEST POSITION.
[2018-12-27] MEDS ORDERED: PANTOPRAZOLE SOD 40 MG TABEC PO SCH (07:30)
[2018-12-27] MEDS: INSULIN REGULAR, HUMAN 100 UNIT/1 ML 3ML VIAL SQ SCH ×4 (08:34→21:15)
[2018-12-27] MEDS: GABAPENTIN 300 MG CAP PO SCH ×2 (08:48→17:47)
[2018-12-27] MEDS: FAMOTIDINE 20 MG TAB PO SCH ×2 (08:48→17:47)
[2018-12-27] MEDS: CYANOCOBALAMIN 1,000 MCG TAB PO SCH (08:48)
[2018-12-27] MEDS: LORATADINE 10 MG TAB PO SCH (08:48)
[2018-12-27] MEDS: ASPIRIN 81 MG ENTERIC COATED PO SCH (08:48)
[2018-12-27] MEDS ORDERED: SODIUM CHLORIDE 0.9% 250ML 250 ML ONE (09:06)
[2018-12-27] MEDS: VANCOMYCIN 1GM/NS 250 ML 250 ML IV SCH (09:12)
[2018-12-27] MEDS: TRIAMCINOLONE 0.1% OINTMENT 15 GM TUBE TP SCH ×2 (09:12→17:00)
[2018-12-27] MEDS ORDERED: PERMETHRIN 5% CREAM 60 GM TUBE TOP ONE (10:45)
--- NOTE | 2018-12-27 11:12 | NUR ---
CALLED [facility] TO VERIFY IF PATIENT IS TO BE DIALYZED TODAY. DIALYSIS DAYS ARE SUPPOSED TO BE -- PER REPORT. PATIENT GOT DIALYZED ON 12/25/18.
--- NOTE | 2018-12-27 11:22 | NUR ---
CM TO BEDSIDE TO DISCUSS IMM MEDICARE PATIENT'S RIGHTS. QUESTIONS ANSWERED AND SIGNATURE OBTAINED. PATIENT VERBALIZED UNDERSTANDING OF DISCUSSION. COPY OF LETTER TO PATIENT'S CHART AND IN TRANSITION OF CARE FOLDER AT PATIENT'S BEDSIDE.
[2018-12-27] MEDS ORDERED: SODIUM CHLORIDE 0.9% 1000ML 2,000 ML ONE (13:32)
[2018-12-27] MEDS ORDERED: SODIUM CHLORIDE 0.9% 250ML 500 ML IV PRN (14:00)
[2018-12-27] MEDS ORDERED: HEPARIN SOD (PORCINE) 1000 UNIT/ML SDV IV PRN (14:00)
[2018-12-27] MEDS ORDERED: SODIUM CHLORIDE 0.9% 1000ML 2,000 ML IV PRN (14:00)
--- NOTE | 2018-12-27 14:11 | NUR ---
ST Note: Order for bedside swallow eval noted. Pt currently on HD and will not be done until approximately 6:00 PM. Will f/u as able. Discussed with COSMO Fry.
--- NOTE | 2018-12-27 14:59 | NUR ---
PER DIALYSIS NURSE, DR. DELATORRE AWARE OF PATIENT'S POTASSIUM OF 3.3
--- NOTE | 2018-12-27 17:11 | Consultation ---
DATE OF CONSULTATION: Wound Consultation HISTORY OF PRESENT ILLNESS: A 73-year-old female patient, previously admitted to the hospital, suffers from end-stage renal disease. She has been having chronic pruritis with papular eruption, extensive, involving both upper and lower extremities, back and abdomen. Thought of sulfa allergy and advised to stop glimepiride and Lasix, however, reviewing the [facility] records, the patient still on sulfa drugs. She is admitted for hyperkalemia. She got the dialysis. She is awake, alert, responding to questions. PAST MEDICAL HISTORY: End-stage renal disease, history of partial nephrectomy, left arm fistula, chronic pruritus, hypertension, diabetes mellitus. PERSONAL HISTORY: No history of smoking or alcohol. PHYSICAL EXAMINATION: HEENT: Normal. NECK: No JVD. LUNGS: Clear. ABDOMEN: Soft. Bowel sounds normal. SKIN: The patient has extensive pruritic rash, scratch stovall. ASSESSMENT: Chronic pruritic rash, cause unspecified. Possible cause includes drug allergy, less likely to be scabies due to the location and the distribution. We could still give a trial of treatment in view of chronicity of the rash. The patient was given triamcinolone cream last night for pruritus. Thank you for consultation. MD CONCHITA London/MODL /[id number]
--- NOTE | 2018-12-27 17:45 | NUR ---
PER DIALYSIS NURSE, PATIENT GOT 2L OUT.
[2018-12-27] MEDS: NIFEDIPINE CR 30 MG TAB PO SCH (17:47)
--- NOTE | 2018-12-27 19:34 | NUR ---
REPORT GIVEN TO ONCOMING NURSE, WALKING ROUNDS DONE. PATIENT IS RESTING IN BED. RESPIRATIONS EVEN AND UNLABORED, NO ACUTE DISTRESS NOTED. CALL LIGHT WITHIN REACH. BED IN THE LOWEST POSITION.
--- NOTE | 2018-12-27 19:45 | NUR ---
PT IS RESTING IN BED WITH FAMILY AT BEDSIDE. NO RESPIRATORY DISTRESS NOTED. BED IN THE LOWEST POSITION, LOCKED, AND CALL LIGHT WITHIN REACH. WILL CONTINUE TO MONITOR.
[2018-12-27] MEDS ORDERED: PERMETHRIN 5% CREAM 60 GM TUBE TOP NR (21:00)
[2018-12-27] MEDS ORDERED: CEFTRIAXONE SOD 1 GM/NS 50 ML 50 ML IV SCH (21:00)
--- NOTE | 2018-12-27 21:32 | Consultation ---
DATE OF CONSULTATION: Pulmonary Critical Care Consultation CHIEF COMPLAINT: Fever, confusion, and dyspnea. HISTORY OF PRESENT ILLNESS: The patient is a 73-year-old woman. She has a history of end-stage renal disease. She came to the emergency department complaining of fever of 103. She also noted some cough productive of discolored phlegm. She felt more congested and had dyspnea. She also reported missing dialysis. On evaluation in the ER, she was found to have a high potassium. The patient subsequently underwent dialysis. She started IV antibiotics and had cultures done. She feels better. She has no fever. She is not having cough or chest pain. PAST MEDICAL HISTORY: 1. End-stage renal disease. 2. Peripheral neuropathy. 3. Hypertension. 4. Diabetes. PAST SURGICAL HISTORY: 1. History of partial left nephrectomy. 2. History of hysterectomy. 3. History of bilateral carpal tunnel syndrome. FAMILY HISTORY: History of cancer in the family. SOCIAL HISTORY: Prior smoking. No alcohol use. ALLERGIES: THE PATIENT IS ALLERGIC TO SULFA AND LASIX. REVIEW OF SYSTEMS: The patient had fever on presentation, but is now afebrile. She does not have headache. She has no neck pain. She has no chest pain. She does have some cough that is improved. Her dyspnea is improved. She has no abdominal pain. She has no nausea or vomiting. She has no leg pain or swelling. PHYSICAL EXAMINATION: VITAL SIGNS: The patient is afebrile. Blood pressure is 129/83 and the saturation is 97%. Pulse is 78 and respiratory rate is 18. HEENT: Shows no facial swelling or erythema. CARDIAC: Reveals a regular rate and rhythm with normal S1, S2. LUNGS: Auscultation of lungs reveals clear breath sounds bilaterally. There is no wheezing. ABDOMEN: Soft and nontender. There is no rebound or guarding. EXTREMITIES: Show no leg edema or calf tenderness. There is no cyanosis or clubbing. SKIN: Shows no rashes. NEUROLOGICAL: Shows no focal abnormalities. RADIOGRAPHIC DATA: Chest x-ray shows no active disease. MICROBIOLOGY: Cultures show Staph aureus in the blood. LABORATORY DATA: White blood cell count is 9.3 and hemoglobin is 8.2. The platelet count is 161. The BUN to creatinine ratio is 31 to 4.11 and the potassium is 3.3. IMPRESSION: 1. Staph aureus bacteremia with sepsis, present on admission. 2. End-stage renal disease with acute uremia. 3. Hypertension. 4. Diabetes and peripheral neuropathy. PLAN: 1. The patient should be continued on vancomycin. 2. Infectious Disease consultation. 3. Continue dialysis as needed. 4. Echocardiogram. 5. Continue to monitor electrolytes and creatinine. MD MELBA Burk/NESTOR /[id number]
[2018-12-28] VITALS (9 sets, daily range): BP systolic 106–127; BP diastolic 54–60
[2018-12-28 03:46] LABS: BASOPHILS % 0.3 % (0.0-1.0); EOSINOPHILS # (AUTO) 0.3 (0.0-0.4); EOSINOPHILS % 3.3 % (0.0-6.0); HEMATOCRIT 26.9 % (34.2-44.1); HEMOGLOBIN 8.4 g/dL (12.0-16.0); LYMPHOCYTES # (AUTO) 1.1 (1.0-3.2); LYMPHOCYTES % 14.1 % (18.0-39.1); MEAN CORPUSCULAR HEMOGLOBIN 33.1 pg (28-32); MEAN CORPUSCULAR HGB CONC 31.2 g/dL (31-35); MEAN CORPUSCULAR VOLUME 105.9 fL (81-99); MONOCYTES # (AUTO) 0.6 (0.2-0.8); MONOCYTES % 7.5 % (4.4-11.3); NEUTROPHILS # (AUTO) 5.6 (2.1-6.9); PLATELET COUNT 172 x10e3/uL (140-360); RED BLOOD COUNT 2.54 x10e6/uL (3.6-5.1); RED CELL DISTRIBUTION WIDTH 20.1 % (11.7-14.4)
[2018-12-28 04:16] LABS: ANION GAP 15.2 mmol/L (8-16); CALCIUM 8.8 mg/dL (8.4-10.2); CREATININE, SERUM 2.97 mg/dL (0.57-1.11); MAGNESIUM 2.1 MG/DL (1.3-2.1); PHOSPHORUS 2.9 MG/DL (2.3-4.7); POTASSIUM 4.2 mmol/L (3.5-5.1)
[2018-12-28] MEDS: ACETAMINOPHEN 325 MG TAB PO PRN ×2 (04:28→20:00)
--- NOTE | 2018-12-28 05:13 | NUR ---
PT IS CONFUSED AND PULLING AT HER HD DIALYSIS CATHETER. PT REMOVED HD CATHETER DRESSING. REDRESS PT HD CATHETER AND EXPLAIN TO PT NOT TO TOUCH CATHETER. ALSO, PT IS REFUSING TO TAKE A BATH TO REMOVE THE PERMETHRIN CREAM. PER PT SHE IS COLD AND WILL TAKE A BATH AFTER BREAKFAST. EXPLAINED TO PT THAT SHE NEEDS TO TAKE A BATH TO REMOVE THE MEDICATION BUT PT REFUSE MULTIPLY TIMES. WILL CONTINUE TO MONITOR.
--- NOTE | 2018-12-28 06:52 | NUR ---
RECEIVED PATIENT RESTING IN BED. RESPIRATIONS EVEN AND UNLABORED, NO ACUTE DISTRESS NOTED. CALL LIGHT WITHIN REACH. BED IN THE LOWEST POSITION.
--- NOTE | 2018-12-28 06:54 | NUR ---
RECEIVED PATIENT RESTING IN BED. NO ACUTE DISTRESS NOTED. NO S/S OF PAIN NOTED. CALL LIGHT WITHIN REACH. BED IN THE LOWEST POSITION. Addendum: 12/28/18 at 0708 by JONNIE BOYLE RN WRONG ENTRY
[2018-12-28] MEDS: INSULIN REGULAR, HUMAN 100 UNIT/1 ML 3ML VIAL SQ SCH ×4 (07:30→20:00)
[2018-12-28] MEDS: FAMOTIDINE 20 MG TAB PO SCH ×2 (08:06→16:45)
[2018-12-28] MEDS: GABAPENTIN 300 MG CAP PO SCH ×2 (08:06→16:45)
[2018-12-28] MEDS: CYANOCOBALAMIN 1,000 MCG TAB PO SCH (08:06)
[2018-12-28] MEDS: VANCOMYCIN 1GM/NS 250 ML 250 ML IV SCH (08:06)
[2018-12-28] MEDS: NIFEDIPINE CR 30 MG TAB PO SCH (08:06)
[2018-12-28] MEDS: ASPIRIN 81 MG ENTERIC COATED PO SCH (08:06)
[2018-12-28] MEDS: LORATADINE 10 MG TAB PO SCH (08:06)
[2018-12-28] MEDS: TRIAMCINOLONE 0.1% OINTMENT 15 GM TUBE TP SCH ×2 (09:41→16:45)
[2018-12-28] MEDS ORDERED: CEFAZOLIN SOD 1 GM/NS 50ML 100 ML IV ONE (11:00)
[2018-12-28] MEDS ORDERED: CEFAZOLIN SOD 2 GM/D5W 50ML 50 ML IV ONE (12:15)
--- NOTE | 2018-12-28 17:14 | Progress Note ---
DATE: Pulmonary Critical Care Progress Note SUBJECTIVE: The patient grew out Staph aureus from the blood. The patient was seen by Infectious Disease yesterday. She is afebrile now. She does not complain of dyspnea or chest pain. OBJECTIVE: VITAL SIGNS: The patient is afebrile. The vital signs are stable. HEENT: Shows no facial swelling or erythema. CARDIAC: Reveals regular rate and rhythm with normal S1 and S2. There are no murmurs or rubs heard. LUNGS: Auscultation of lungs reveals clear breath sounds bilaterally. There is no wheezing. ABDOMEN: Soft and nontender. There is no rebound or guarding. EXTREMITIES: Show no leg edema or calf tenderness. There is no cyanosis or clubbing. SKIN: Shows no rashes. NEUROLOGIC: Shows no focal abnormalities. IMPRESSION: 1. Staph aureus bacteremia with sepsis, present on admission. 2. End-stage renal disease. 3. Hypertension. 4. Diabetes. PLAN: 1. The patient will continue the vancomycin. 2. Infectious Disease seen the patient in consultation. 3. Await official echocardiogram report. 4. Discuss possibility of an infected dialysis graft or catheter with Infectious Disease and Nephrology. Drew Shay MD LM/NESTOR /[id number]
--- NOTE | 2018-12-28 18:39 | Consultation ---
INFECTIOUS DISEASE CONSULTATION DATE OF CONSULTATION: 12/28/2018 REASON FOR CONSULTATION: Staph bacteremia. Thank you, Dr. Shay and Dr. Gage, for asking me to see this patient, who was admitted through the emergency room. HISTORY OF PRESENT ILLNESS: The patient is a 73-year-old woman, referred for Staph bacteremia. She was admitted through the emergency department with probable bronchopneumonia with sepsis. She presented to the emergency department on 12/25/2018, with confusion. The patient has end-stage renal disease and undergoes hemodialysis through right internal jugular vein tunneled hemodialysis catheter. She missed one hemodialysis session prior to admission. In the emergency department, she was noted to have temperature of a 103.7 degrees Fahrenheit, pulse rate 122, respiratory rate 24, blood pressure 143/84, and oxygen saturation 94% on room air. Initial laboratory studies showed blood leukocyte count of 13,110 with 88.8% neutrophils, and blood glucose 94. Brain CT scan showed no acute finding. Chest x-ray also showed no acute cardiopulmonary abnormality. PAST MEDICAL HISTORY: Diabetes mellitus type 2 with peripheral neuropathy, hypertension, end-stage renal disease, pruritus for 1 year. PAST SURGICAL HISTORY: Left partial nephrectomy, hysterectomy, left arm AV fistula creation, right internal jugular tunneled hemodialysis catheter placement, and bilateral carpal tunnel release surgery. ALLERGIES: SULFA, GLIMEPIRIDE, AND LASIX. MEDICATIONS: See MAR. The current antibiotics are vancomycin 1 g IV piggyback q.24 hours and ceftriaxone 1 g IV piggyback q.24 hours. IMMUNIZATION: She received pneumococcal vaccination in the past. PAST FAMILY HISTORY: Significant for cancer in a brother and sister, types unknown. SOCIAL HISTORY: She quit smoking cigarettes about a year ago. No alcohol or recreational drug use. REVIEW OF SYSTEMS: As per history of present illness. Fever appears to subside, although the patient reports chills. She denies cough, shortness of breath, nausea, vomiting, diarrhea, and abdominal pain. She has indwelling Riley catheter. She also reports improvement in the diffuse itching since treatment for scabies was administered. PHYSICAL EXAMINATION: GENERAL: No acute distress. VITAL SIGNS: T-max 101, pulse rate 89, respiratory rate 18, blood pressure 125/60, weight 149 pounds. HEENT: Normocephalic. There is no icterus or injection of conjunctivae. There is no ear or nasal discharge. Moist oral mucosa. No pharyngeal erythema or exudate. NECK: Supple. No meningismus. Tunneled hemodialysis catheter at exit site is without discharge. LUNGS: Good air entry bilaterally. HEART: Normal S1 and S2. Regular. ABDOMEN: Soft and nontender. EXTREMITIES: There is no edema, clubbing, or cyanosis. Dorsalis pedis and posterior tibial pulses are palpable. SKIN: Multiple scratch stovall with scabs, mostly on the extremities and trunk. VALET CASHIER: Awake, alert, and oriented to person, place, and time. LABORATORY AND DIAGNOSTICS: Blood culture grew methicillin-sensitive Staphylococcus aureus. IMPRESSION: 1. Sepsis likely due to hemodialysis catheter infection from methicillin- sensitive Staphylococcus aureus, present on admission. 2. End-stage renal disease. 3. Diabetes mellitus type 2 with peripheral neuropathy. 4. 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 PLAN: 1. Change antibiotics to cefazolin 2 g IV piggyback post hemodialysis. 2. Check echocardiogram. 3. Interventional Radiology should be consulted for tunneled hemodialysis catheter removal after dialysis on Sunday. A temporary hemodialysis catheter should be placed prior to next dialysis on Sunday. MD ALESHIA Culp/NESTOR /[id number] MTDD
--- NOTE | 2018-12-28 19:00 | NUR ---
patient received awake, alert, lying quietly in bed. no c/o pain noted at this time. eng catheter draining clear yellow urine to bsd. pm assessment complete. side rails up x 3, call fields placed within reach and bed alarm remains on for safety. patient instructed to call for assistance when needed.
--- NOTE | 2018-12-28 19:09 | NUR ---
REPORT GIVEN TO ONCOMING NURSE, WALKING ROUNDS DONE. PATIENT IS RESTING IN BED. RESPIRATIONS EVEN AND UNLABORED, NO ACUTE DISTRESS NOTED. NO S/S OF PAIN NOTED. CALL LIGHT WITHIN REACH. BED IN THE LOWEST POSITION.
--- NOTE | 2018-12-29 | NUR ---
patient appears to be resting quietly. no c/o pain noted at this time.
--- NOTE | 2018-12-29 02:50 | NUR ---
am labs drawn at this time and sent to lab.
[2018-12-29 02:56] LABS: BASOPHILS % 0.4 % (0.0-1.0); EOSINOPHILS # (AUTO) 0.4 (0.0-0.4); EOSINOPHILS % 4.6 % (0.0-6.0); HEMATOCRIT 26.6 % (34.2-44.1); HEMOGLOBIN 8.4 g/dL (12.0-16.0); LYMPHOCYTES # (AUTO) 1.3 (1.0-3.2); LYMPHOCYTES % 16.1 % (18.0-39.1); MEAN CORPUSCULAR HEMOGLOBIN 32.9 pg (28-32); MEAN CORPUSCULAR HGB CONC 31.6 g/dL (31-35); MEAN CORPUSCULAR VOLUME 104.3 fL (81-99); MONOCYTES # (AUTO) 0.6 (0.2-0.8); MONOCYTES % 7.6 % (4.4-11.3); NEUTROPHILS # (AUTO) 5.7 (2.1-6.9); NEUTROPHILS % 68.1 % (38.7-80.0); PLATELET COUNT 173 x10e3/uL (140-360); RED BLOOD COUNT 2.55 x10e6/uL (3.6-5.1); RED CELL DISTRIBUTION WIDTH 20.1 % (11.7-14.4)
[2018-12-29 03:15] LABS: ANION GAP 14.8 mmol/L (8-16); CALCIUM 8.8 mg/dL (8.4-10.2); CREATININE, SERUM 3.91 mg/dL (0.57-1.11); MAGNESIUM 2.3 MG/DL (1.3-2.1); POTASSIUM 3.8 mmol/L (3.5-5.1)
[2018-12-29 05:03] VITALS: BP 132/63
[2018-12-29 05:15] LABS: EOSINOPHILS % (MANUAL) 3 % (0-7); LYMPHOCYTES % (MANUAL) 13 % (19-48); MONOCYTES % (MANUAL) 5 % (3.4-9.0); NEUTROPHILS % (MANUAL) 75 % (40-74)
--- NOTE | 2018-12-29 06:56 | NUR ---
RECEIVED PATIENT RESTING IN BED. NO ACUTE DISTRESS NOTED. DENIES PAIN OR DISCOMFORT. CALL LIGHT WITHIN REACH. BED IN THE LOWEST POSITION.
[2018-12-29] MEDS: INSULIN REGULAR, HUMAN 100 UNIT/1 ML 3ML VIAL SQ SCH ×4 (07:30→19:49)
[2018-12-29 07:46] VITALS: BP 132/62
[2018-12-29] MEDS ORDERED: BISACODYL 5 MG TAB EC PO ONE (08:00)
[2018-12-29] MEDS: FAMOTIDINE 20 MG TAB PO SCH ×2 (09:04→16:45)
[2018-12-29] MEDS: ASPIRIN 81 MG ENTERIC COATED PO SCH (09:04)
[2018-12-29] MEDS: TRIAMCINOLONE 0.1% OINTMENT 15 GM TUBE TP SCH ×2 (09:05→16:45)
[2018-12-29] MEDS: CYANOCOBALAMIN 1,000 MCG TAB PO SCH (09:05)
[2018-12-29] MEDS: LORATADINE 10 MG TAB PO SCH (09:05)
[2018-12-29] MEDS: GABAPENTIN 300 MG CAP PO SCH ×2 (09:05→16:45)
[2018-12-29] MEDS: NIFEDIPINE CR 30 MG TAB PO SCH (09:05)
--- NOTE | 2018-12-29 09:05 | NUR ---
OFFERED PATIENT A BATH, PER PATIENT "NOT AT THIS TIME, I'M WAITING FOR MY DAUGHTER".
--- NOTE | 2018-12-29 09:32 | Diagnostic Imaging Report ---
EXAMINATION: CHEST SINGLE (PORTABLE) INDICATION: ^r/o PNA ^[id number] ^[id number] COMPARISON: Chest radiograph 12/26/2018 FINDINGS: AP view TUBES and LINES: Stable right hemodialysis catheter with tip overlying the cavoatrial junction. LUNGS: Lungs are well inflated. More prominent small consolidation in the medial right lower lobe. Left lung is clear. PLEURA: No pleural effusion or pneumothorax. HEART AND MEDIASTINUM: The cardiomediastinal silhouette is unremarkable.. BONES AND SOFT TISSUES: No acute osseous lesion. Soft tissues are unremarkable. UPPER ABDOMEN: No free air under the diaphragm. IMPRESSION: Worsening medial right lower lobe small consolidation concerning for pneumonia. Continue to follow-up. Signed by: Dr. Dede Spivey M.D. on 12/29/2018 9:29 AM
[2018-12-29 09:34] VITALS: BP 132/62
--- NOTE | 2018-12-29 11:00 | NUR ---
NURSE OFFERED THE PATIENT A BATH AGAIN, PATIENT REFUSED AT THIS TIME, WAITING FOR DAUGHTER.
[2018-12-29 11:40] VITALS: BP 130/61
--- NOTE | 2018-12-29 14:13 | Progress Note ---
DATE: SUBJECTIVE: The patient feels better. She is not having fevers. She does not complain of chest pain or difficulty breathing. OBJECTIVE: VITAL SIGNS: The patient is afebrile. The vital signs are stable. HEENT: Shows no facial swelling or erythema. The nasal mucosa is normal. The oropharynx is normal. LYMPHATIC: Shows no submandibular, cervical, or supraclavicular adenopathy. CARDIAC: Reveals regular rate and rhythm with normal S1 and S2. There are no murmurs or rubs heard. LUNGS: Auscultation of lungs reveals clear breath sounds bilaterally. ABDOMEN: Soft and nontender. There is no rebound or guarding. EXTREMITIES: Show no leg edema or calf tenderness. IMPRESSION: 1. Staph bacteremia with sepsis present on admission. 2. End-stage renal disease. 3. Hypertension. 4. Diabetes. PLAN: 1. The patient will have dialysis tomorrow and then we will have her catheter removed. 2. Continue current antibiotics. 3. Continue to monitor blood counts and electrolytes. MD MELBA Burk/MODL /[id number]
[2018-12-29 16:00] VITALS: BP 125/60
--- NOTE | 2018-12-29 19:05 | NUR ---
REPORT GIVEN TO ONCOMING NURSE, WALKING ROUNDS DONE. PATIENT IS RESTING IN BED. NO ACUTE DISTRESS NOTED. DENIES PAIN OR DISCOMFORT. CALL LIGHT WITHIN REACH. BED IN THE LOWEST POSITION.
[2018-12-29 20:00] VITALS: BP 118/59
[2018-12-30] VITALS (7 sets, daily range): BP systolic 136–167; BP diastolic 67–75
[2018-12-30 01:28] LABS: BASOPHILS % 0.5 % (0.0-1.0); EOSINOPHILS # (AUTO) 0.4 (0.0-0.4); EOSINOPHILS % 4.6 % (0.0-6.0); HEMATOCRIT 25.6 % (34.2-44.1); HEMOGLOBIN 8.2 g/dL (12.0-16.0); LYMPHOCYTES # (AUTO) 1.7 (1.0-3.2); LYMPHOCYTES % 19.8 % (18.0-39.1); MEAN CORPUSCULAR HEMOGLOBIN 33.3 pg (28-32); MEAN CORPUSCULAR VOLUME 104.1 fL (81-99); MONOCYTES # (AUTO) 0.7 (0.2-0.8); MONOCYTES % 7.8 % (4.4-11.3); NEUTROPHILS # (AUTO) 5.4 (2.1-6.9); PLATELET COUNT 188 x10e3/uL (140-360); RED BLOOD COUNT 2.46 x10e6/uL (3.6-5.1); RED CELL DISTRIBUTION WIDTH 19.7 % (11.7-14.4)
[2018-12-30 01:44] LABS: ANION GAP 16.1 mmol/L (8-16); POTASSIUM 4.1 mmol/L (3.5-5.1)
[2018-12-30 02:01] LABS: CALCIUM 8.7 mg/dL (8.4-10.2); CREATININE, SERUM 4.72 mg/dL (0.57-1.11)
--- NOTE | 2018-12-30 06:30 | NUR ---
Attempted to call Dr. Ibarra for orders to replace patient's temporary hemodialysis line. Answering service states he will not be available till 0700.
--- NOTE | 2018-12-30 07:25 | NUR ---
RECD PT IN BED AWAKE ,NO DISTRESS NTOED ,DENIES PAIN.
[2018-12-30] MEDS: INSULIN REGULAR, HUMAN 100 UNIT/1 ML 3ML VIAL SQ SCH ×4 (07:30→21:00)
[2018-12-30] MEDS: CYANOCOBALAMIN 1,000 MCG TAB PO SCH (08:30)
[2018-12-30] MEDS: GABAPENTIN 300 MG CAP PO SCH ×2 (08:35→17:00)
[2018-12-30] MEDS: LORATADINE 10 MG TAB PO SCH (08:35)
[2018-12-30] MEDS: ASPIRIN 81 MG ENTERIC COATED PO SCH (08:35)
[2018-12-30] MEDS: FAMOTIDINE 20 MG TAB PO SCH ×2 (08:35→17:00)
[2018-12-30] MEDS: NIFEDIPINE CR 30 MG TAB PO SCH (09:00)
[2018-12-30] MEDS ORDERED: EPOETIN ALFA 10000 UNIT/ML VIAL SC NR (10:00)
[2018-12-30] MEDS ORDERED: CEFAZOLIN SOD 1 GM/NS 50ML 100 ML IV SCH (11:00)
--- NOTE | 2018-12-30 13:37 | Progress Note ---
DATE: 12/30/2018 SUBJECTIVE: Overall feeling better. There is concern that the line was leading to infection given the MRSA in blood. Denies any dyspnea. Appetite is improving . Infectious Disease note to swap tunneled dialysis catheter for a non-tunneled one is noted and appears reasonable, is getting IV antibiotics. OBJECTIVE: GENERAL: Lying in bed, in no distress. VITAL SIGNS: Temperature 97.9, pulse 89, and blood pressure 145/69. CHEST: Clear at this time. CARDIAC: Normal heart tones. Rhythm sounds regular. AVF is not yet ready. LABORATORY DATA: Labs were reviewed. ASSESSMENT: 1. End-stage renal disease. 2. Hypertension. 3. Anemia. 4. Chronic kidney disease. 5. Metabolic acidosis. 6. Fluid overload has controlled. PLAN: Hemodialysis today. Noted plan to remove the tunnelled dialysis catheter. This is reasonable and in the meantime, we can use the non-tunneled line till cultures are clear and cleared by Infectious Disease Service. Thank you for allowing us to participate with Ms. Gonzalez's care. Please see dialysis orders for details. MD COREEN PuckettK/DIANAL /[id number] MTDD
[2018-12-30] MEDS: TRIAMCINOLONE 0.1% OINTMENT 15 GM TUBE TP SCH ×2 (14:42→17:00)
--- NOTE | 2018-12-30 15:05 | NUR ---
WOUND CARE CONSULTATION: INITIAL EVALUATION Patient admitted from home to ER for PNA and Sepsis. LABS: WBC8.73 HGB8.2 HCT25.6 NEUT%62 [id number] WC Consulted for Evaluation and Recommendation of multiple Skin Lesions throughout body. Dr. Olvera on case for services. Treating with topical steroids. ( triamcinolone ) PATIENT VISIT: Patient calm in bed resting. HD initiating. Presents with multiple annular crusted ulcerations throughout body. Some areas have rash appearance, reddened and clustered. All at various healing stages. No tracking noted. Evidence of scratches throughout body. States to have had lesions for some time now. Noted throughout chart documentation of scabies but no treatment for it. No Previous tests done for scabies noted. No Pressure Ulcers Identified. Yaya Score 15 Moderate PUP Active Alternating Pressure Air Mattress in Place. Patient able to turn self without assistance. IMPRESSION: Non Healing Pruritic Ulcerations/ Lesions throughout body of Unknown Eitiology. RECOMMENDATION: Scrape lesions and submit to lab for testing ( in microscope slide ) to rule out active scabies. - if negative, consider dermatology visit. - if positive, initiate 5% Permethrin topical Lotion treatments daily x 7 days then re-test for live mites. Thank you for consulting with Wound Care. Addendum: 12/30/18 at 1526 by Ellis Boyd RN Amended: Links added.
--- NOTE | 2018-12-30 18:10 | NUR ---
PT UP IN BED ,DIALYSIS IN PROCESS,DENIES PAIN
--- NOTE | 2018-12-30 19:20 | NUR ---
Completed bedside rounds with morning nurse. Dialysis completed, BP 153/75, dialyzed 2L. Temp cath port right upper chest drsg C/D/I. Pt alert and orient to name, place, and situation. Denies pain at this time. Call fields within reach. Will continue to monitor.
[2018-12-30] MEDS: DIPHENHYDRAMINE HCL 25 MG CAP PO PRN (20:43)
[2018-12-30] MEDS: CEFAZOLIN SOD 2 GM/D5W 50ML 50 ML IV SCH (20:43)
[2018-12-31] VITALS (8 sets, daily range): BP systolic 137–161; BP diastolic 63–77
[2018-12-31 03:58] LABS: BASOPHILS # (AUTO) 0.1 (0.0-0.1); BASOPHILS % 0.6 % (0.0-1.0); EOSINOPHILS # (AUTO) 0.3 (0.0-0.4); EOSINOPHILS % 3.9 % (0.0-6.0); HEMATOCRIT 26.7 % (34.2-44.1); HEMOGLOBIN 8.5 g/dL (12.0-16.0); LYMPHOCYTES # (AUTO) 1.5 (1.0-3.2); LYMPHOCYTES % 17.6 % (18.0-39.1); MEAN CORPUSCULAR HEMOGLOBIN 33.1 pg (28-32); MEAN CORPUSCULAR HGB CONC 31.8 g/dL (31-35); MEAN CORPUSCULAR VOLUME 103.9 fL (81-99); MONOCYTES # (AUTO) 0.6 (0.2-0.8); MONOCYTES % 6.6 % (4.4-11.3); NEUTROPHILS # (AUTO) 5.5 (2.1-6.9); NEUTROPHILS % 66.2 % (38.7-80.0); PLATELET COUNT 206 x10e3/uL (140-360); RED BLOOD COUNT 2.57 x10e6/uL (3.6-5.1); RED CELL DISTRIBUTION WIDTH 19.8 % (11.7-14.4)
[2018-12-31 04:11] LABS: ANION GAP 13.8 mmol/L (8-16); CALCIUM 8.9 mg/dL (8.4-10.2); CREATININE, SERUM 3.06 mg/dL (0.57-1.11); MAGNESIUM 1.9 MG/DL (1.3-2.1); POTASSIUM 3.8 mmol/L (3.5-5.1)
--- NOTE | 2018-12-31 06:40 | NUR ---
Pt alert and orient. Lying in bed HOB 30 degrees. Denies pain. No distress noted.
--- NOTE | 2018-12-31 07:00 | NUR ---
RECEIVED AM REPORT FROM NURSE. PT IS ASLEEP IN BED, NO S/S OF DISTRESS
[2018-12-31] MEDS: INSULIN REGULAR, HUMAN 100 UNIT/1 ML 3ML VIAL SQ SCH ×4 (07:30→21:24)
[2018-12-31] MEDS: FAMOTIDINE 20 MG TAB PO SCH ×2 (07:30→18:13)
[2018-12-31] MEDS: NIFEDIPINE CR 30 MG TAB PO SCH (08:46)
[2018-12-31] MEDS: ASPIRIN 81 MG ENTERIC COATED PO SCH (09:00)
[2018-12-31] MEDS: GABAPENTIN 300 MG CAP PO SCH ×2 (09:00→18:13)
[2018-12-31] MEDS: TRIAMCINOLONE 0.1% OINTMENT 15 GM TUBE TP SCH ×2 (09:00→17:00)
[2018-12-31] MEDS: LORATADINE 10 MG TAB PO SCH (09:00)
[2018-12-31] MEDS: CYANOCOBALAMIN 1,000 MCG TAB PO SCH (09:00)
[2018-12-31] MEDS ORDERED: FENTANYL CITRATE/PF 100MCG/2 ML INJ ONE (14:23)
[2018-12-31] MEDS ORDERED: MIDAZOLAM HCL 2 MG/2 ML VIAL ONE (14:23)
[2018-12-31] MEDS ORDERED: LIDOCAINE 1% W/EPINEPHRINE 20 ML VIAL ONE ×2 (14:23→15:51)
[2018-12-31] MEDS ORDERED: HEPARIN SOD (PORCINE) 1000 UNIT/ML 30ML ONE (14:24)
[2018-12-31] MEDS ORDERED: SODIUM CHLORIDE 0.9% 500ML 1,000 ML ONE (14:24)
--- NOTE | 2018-12-31 15:23 | NUR ---
PT TRANSPORTED TO IR VIA BED
[2018-12-31] MEDS ORDERED: SODIUM CHLORIDE 0.9% 500ML 500 ML ONE (15:26)
--- NOTE | 2018-12-31 16:05 | NUR ---
Nutrition Screen Note RD Recommendation for Physician: - Continue current diet Plan of Care: RD following, monitoring for tolerance and adequacy Nutrition reason for involvement: LOS Primary Diagnose(s): PNA, sepsis PMH: ESRD on HD, DM, HTN Ht: 61 in Wt: 149 lb BMI: 28.2 kg/m2 IBW: [address] Assessment: (12/31) 73 YOF admitted for PNA and sepsis, evaluated today per LOS. Pt discussed during am rounds, pending new HD catheter placement and possible discharge home tomorrow. Medical providers with pt at time of attempted visits, then pt out of room for procedure this afternoon. Pt with 60-100% meal intake and no reported GI distress. LBM 12/28. No PU's, however lesions to torso, arms, and legs per wound care with unknown etiology. Chart reviewed. Labs and meds reviewed. Will monitor and continue to follow. Current Diet: 1800 ADA, renal Malnutrition Evaluation (12/31/18) The patient does not meet criteria for a specified degree of malnutrition at this time. Will re-evaluate at follow-up as appropriate. Diet Education Needs Assessment: Diet education not indicated. Nutrition Care Level: Low Signed: Krysta Sparrow RD, LD, CNSC
--- NOTE | 2018-12-31 17:30 | NUR ---
RECD PT BACK FROM [employer] VIA BED AWAKE,DENIES PAIN ,TEMPORARY DIALYSIS CATH IN PLACE TO LT NECK IJ TRIPLE LUMEN,NO BLEEDING NOTED
--- NOTE | 2018-12-31 17:34 | NUR ---
SPOKE WITH DAUGHTER RE;PROCEDURE
--- NOTE | 2018-12-31 18:20 | NUR ---
PT'S BLOOD SUGAR IS 207MG/DL. PT REFUSED INSULIN INJ. PT EDUCATION RENDERED. AT BEDSIDE
--- NOTE | 2018-12-31 19:22 | NUR ---
Received patient in report. Patient is resting in bed at this time. No pain reported. No S&S of distress noted at this time. Bed locked in lowest position, side rails upx2, call light in reach.
--- NOTE | 2018-12-31 22:30 | NUR ---
Went to room to help patient move up in bed. Patient reported feeling like her blood sugar was low. Checked, BS 35. Two orange juices with sugar added given, as patient was conscious and talking. Patient had some grapes at bedside, offered to her to help provide complex sugars. Will recheck BS at 2245. Patient's BS was 273 at 2200, 8 units of insulin given as per orders. Patient reports she does like insulin because this "always happens when I take insulin."
--- NOTE | 2018-12-31 22:45 | NUR ---
RETESTED PATIENT'S BS, 84. PATIENT STILL EATING HER GRAPES, STATES SHE FEELS MUCH BETTER NOW. ASKED IF SHE WANTED ANY MORE ORANGE JUICE OR OTHER SNACK AND SHE STATED SHE WAS OKAY WITH THE GRAPES. REMINDED PATIENT TO CALL IMMEDIATELY SOON SHE STARTS FEELING SHAKY SO WE CAN ASSESS AND INTERVENE IF NEEDED. PATIENT VERBALIZED UNDERSTANDING. WILL CONTINUE TO MONITOR CLOSELY.
[2019-01-01] VITALS (8 sets, daily range): BP systolic 131–151; BP diastolic 60–95
[2019-01-01] MEDS: DIPHENHYDRAMINE HCL 25 MG CAP PO PRN (03:15)
--- NOTE | 2019-01-01 03:15 | NUR ---
PATIENT NOTED TO BE ITCHING CHEST, BACK, R HIP. SCRATCHES TO SKIN ON BACK, NOT REDDENED, NOTED WHEN AMBULATED TO RESTROOM. GAVE BENADRYL PER PATIENT REQUEST. BANDAID TO R CHEST TAKEN OFF DURING ITCHING, REAPPLIED TO COVER FORMER HD CATH SITE. SCANT AMOUNT OF CLEAR DRAINAGE NOTED.
[2019-01-01 03:37] LABS: BASOPHILS # (AUTO) 0.1 (0.0-0.1); BASOPHILS % 0.5 % (0.0-1.0); EOSINOPHILS # (AUTO) 0.2 (0.0-0.4); EOSINOPHILS % 2.1 % (0.0-6.0); HEMATOCRIT 30.1 % (34.2-44.1); HEMOGLOBIN 9.6 g/dL (12.0-16.0); LYMPHOCYTES % 19.8 % (18.0-39.1); MEAN CORPUSCULAR HGB CONC 31.9 g/dL (31-35); MEAN CORPUSCULAR VOLUME 103.4 fL (81-99); MONOCYTES # (AUTO) 0.7 (0.2-0.8); MONOCYTES % 6.7 % (4.4-11.3); NEUTROPHILS # (AUTO) 6.7 (2.1-6.9); PLATELET COUNT 215 x10e3/uL (140-360); RED BLOOD COUNT 2.91 x10e6/uL (3.6-5.1); RED CELL DISTRIBUTION WIDTH 19.6 % (11.7-14.4)
[2019-01-01 03:56] LABS: ANION GAP 16.7 mmol/L (8-16); CALCIUM 9.7 mg/dL (8.4-10.2)
[2019-01-01 04:00] LABS: POTASSIUM 4.7 mmol/L (3.5-5.1)
[2019-01-01 04:01] LABS: CREATININE, SERUM 4.89 mg/dL (0.57-1.11)
--- NOTE | 2019-01-01 07:00 | NUR ---
PATIENT IS AWAKE AND IN STABLE CONDITION WITH NO S/S OF RESPIRATORY DISTRESS. NO PAIN VOICED. PATIENT SET TO HAVE DIALYSIS TODAY. BED ALARM ON. CALL LIGHT IS WITHIN REACH, PATIENT INSTRUCTED TO CALL FOR ASSISTANCE NEEDED.
[2019-01-01] MEDS: INSULIN REGULAR, HUMAN 100 UNIT/1 ML 3ML VIAL SQ SCH ×4 (07:30→21:37)
[2019-01-01] MEDS: FAMOTIDINE 20 MG TAB PO SCH ×2 (08:32→16:43)
[2019-01-01] MEDS: GABAPENTIN 300 MG CAP PO SCH ×2 (08:32→16:43)
[2019-01-01] MEDS: LORATADINE 10 MG TAB PO SCH (08:32)
[2019-01-01] MEDS: CYANOCOBALAMIN 1,000 MCG TAB PO SCH (08:32)
[2019-01-01] MEDS: ASPIRIN 81 MG ENTERIC COATED PO SCH (08:32)
[2019-01-01] MEDS: TRIAMCINOLONE 0.1% OINTMENT 15 GM TUBE TP SCH ×2 (08:33→16:44)
--- NOTE | 2019-01-01 08:50 | NUR ---
PATIENT ASSISTED WITH SHOWER BY RN AND PCT; NEW IV DRESSING APPLIED. PATIENT REPOSITION IN BED AND IS SET TO HAVE DIALYSIS SOON.
--- NOTE | 2019-01-01 09:37 | NUR ---
PATIENT STARTING DIALYSIS- PATIENT IN STABLE CONDITION WITH NO S/S OF RESPIRATORY DISTRESS.
--- NOTE | 2019-01-01 10:48 | NUR ---
RN SPOKE WITH DIALYSIS NURSE REGARDING DRESSING CHANGE ON DIALYSIS TEMPORARY IJ ACCESS SITE- DIALYSIS NURSE STATED NO NEED EVEN WHEN RN ASKED ON THE TAPE.
--- NOTE | 2019-01-01 10:58 | Progress Note ---
DATE: SUBJECTIVE: Had an episode of hypoglycemia, feels okay, has a temporary tunneled dialysis catheter now. As noted blood cultures were positive for Staph aureus in the blood on 12/25/2018 and there was concern for line infection. Her breathing is better. Denies any cough. Catheter-tip culture is pending. OBJECTIVE: GENERAL: On examination, sitting up, no distress. VITAL SIGNS: Temperature 97.5, pulse 96, blood pressure 138/57. NECK: Left IJ non-tunneled dialysis catheter is noted. CHEST: Faint crackles on the right side. No wheezes are heard. NEURO: Alert, appropriate. EXTREMITIES: No edema. ABDOMEN: Benign. LABORATORY DATA: Hemoglobin is 9.6, it is coming up, K is 4.7, creatinine 4.8, BUN 40. ASSESSMENT: 1. End-stage renal disease. 2. Satisfactory blood pressure. 3. Anemia of chronic kidney disease, improving. 4. Presumed diabetic nephropathy. PLAN: 1. Hemodialysis today 4 hour run, 2 to 3 L fluid removal. 2. Potassium bath. Blood flow rate 350 mL/minute, dialysate flow rate 700 mL/minute. We will follow along. MD BRIAN Puckett/NESTOR /[id number]
[2019-01-01] MEDS: NIFEDIPINE CR 30 MG TAB PO SCH (14:15)
[2019-01-01] MEDS: CEFAZOLIN SOD 2 GM/D5W 50ML 50 ML IV SCH (14:15)
--- NOTE | 2019-01-01 14:15 | NUR ---
PATIENT COMPLETED DIALYSIS: 2 LITERS REMOVED. PATIENT IS IN STABLE CONDITION WITH NO S/S OF RESPIRATORY DISTRESS. PATIENT IS SITTING UP IN THE BED AND EATING HER LUNCH. CALL LIGHT IS WITHIN REACH, PATIENT INSTRUCTED TO CALL FOR ASSISTANCE NEEDED.
[2019-01-01] MEDS ORDERED: ONDANSETRON HCL 4 MG ORAL DISINTEGRATING TAB PO PRN (16:30)
--- NOTE | 2019-01-01 19:29 | NUR ---
PATIENT IS IN STABLE CONDITION WITH NO S/S OF RESPIRATORY DISTRESS. FAMILY MEMBER PRESENT IN ROOM. CALL LIGHT IS WITHIN REACH, PATIENT INSTRUCTED TO CALL FOR ASSISTANCE NEEDED. BEDSIDE REPORT GIVEN TO ONCOMING NURSE.
--- NOTE | 2019-01-01 19:32 | NUR ---
PT IS RESTING IN BED. NO RESPIRATORY DISTRESS NOTED. BED IN THE LOWEST POSITION, LOCKED, BED ALARM ON, AND CALL LIGHT WITHIN REACH. WILL CONTINUE TO MONITOR.
[2019-01-02] VITALS (8 sets, daily range): BP systolic 118–143; BP diastolic 61–66
[2019-01-02 05:49] LABS: BASOPHILS # (AUTO) 0.1 (0.0-0.1); BASOPHILS % 0.7 % (0.0-1.0); EOSINOPHILS # (AUTO) 0.3 (0.0-0.4); EOSINOPHILS % 3.4 % (0.0-6.0); HEMATOCRIT 28.4 % (34.2-44.1); HEMOGLOBIN 8.7 g/dL (12.0-16.0); LYMPHOCYTES % 23.5 % (18.0-39.1); MEAN CORPUSCULAR HEMOGLOBIN 32.2 pg (28-32); MEAN CORPUSCULAR HGB CONC 30.6 g/dL (31-35); MEAN CORPUSCULAR VOLUME 105.2 fL (81-99); MONOCYTES # (AUTO) 0.7 (0.2-0.8); MONOCYTES % 8.3 % (4.4-11.3); NEUTROPHILS # (AUTO) 4.7 (2.1-6.9); NEUTROPHILS % 55.5 % (38.7-80.0); PLATELET COUNT 223 x10e3/uL (140-360); RED CELL DISTRIBUTION WIDTH 19.4 % (11.7-14.4)
[2019-01-02 06:04] LABS: ANION GAP 16.4 mmol/L (8-16); CREATININE, SERUM 3.2 mg/dL (0.57-1.11); POTASSIUM 4.4 mmol/L (3.5-5.1)
--- NOTE | 2019-01-02 07:20 | NUR ---
PATIENT IS AWAKE AND IN STABLE CONDITION WITH NO S/S OF RESPIRATORY DISTRESS. NO PAIN VOICED. WALKER PRESENT IN ROOM FOR PATIENT. CALL LIGHT IS WITHIN REACH, PATIENT INSTRUCTED TO CALL FOR ASSISTANCE NEEDED.
[2019-01-02] MEDS: INSULIN REGULAR, HUMAN 100 UNIT/1 ML 3ML VIAL SQ SCH ×4 (07:30→21:00)
--- NOTE | 2019-01-02 07:41 | Diagnostic Imaging Report ---
Exam: Modified barium swallow performed in conjunction with the Speech Pathologist History: Sepsis Comparison: None available Findings: There is no evidence of laryngeal penetration or aspiration. There is delayed swallowing and piecemeal deglutition. Fluoroscopy time: 0.8 minutes Cumulative dose: 4.67 mGy Impression: No evidence of laryngeal penetration or aspiration. Please see the full report provided by speech pathology. Signed by: Dr. Stalin Harris DO on 01/02/2019 7:38 AM
[2019-01-02] MEDS: GABAPENTIN 300 MG CAP PO SCH ×2 (08:22→16:02)
[2019-01-02] MEDS: CYANOCOBALAMIN 1,000 MCG TAB PO SCH (08:22)
[2019-01-02] MEDS: ASPIRIN 81 MG ENTERIC COATED PO SCH (08:22)
[2019-01-02] MEDS: FAMOTIDINE 20 MG TAB PO SCH ×2 (08:22→16:02)
[2019-01-02] MEDS: LORATADINE 10 MG TAB PO SCH (08:22)
[2019-01-02] MEDS: NIFEDIPINE CR 30 MG TAB PO SCH (08:22)
[2019-01-02] MEDS: TRIAMCINOLONE 0.1% OINTMENT 15 GM TUBE TP SCH ×2 (08:41→16:11)
--- NOTE | 2019-01-02 12:23 | Diagnostic Imaging Report ---
Procedure: Tunneled hemodialysis catheter removal. Indication: Possible infected tunneled dialysis catheter. Medications: Versed 1 mg intravenous, Fentanyl 25 mcg intravenous. The patient's vital signs, including pulse oximetry, were continuously monitored by the interventional radiology nurse. Sedation time was 1 hour or less. Fluoroscopy time: 0.1 minutes. Dose area product: 15.0 cGycm2 Contrast used: None Estimated blood loss: Minimal. Complications: No immediate. Procedure in detail: The right neck and upper chest was prepped and draped in the standard full barrier sterile fashion after the patient was placed in the supine position on the fluoroscopic table. 1% lidocaine was administered into the skin and subcutaneous tissues of the of the catheter. Utilizing blunt dissection the retention cuff of the tunneled dialysis catheter was freed up. Catheter was removed. Skin insertion site was closed with 4-0 Vicryl. Impression: 1. Successful removal of right internal jugular tunneled hemodialysis catheter 2. The two catheter tips were sent to the laboratory for culture and sensitivity. Signed by: Dr. Stalin Harris DO on 01/02/2019 12:19 PM
[2019-01-02 13:17] LABS: EOSINOPHILS % (MANUAL) 4 % (0-7); HYPOCHROMASIA SLIGHT; LYMPHOCYTES % (MANUAL) 23 % (19-48); MONOCYTES % (MANUAL) 9 % (3.4-9.0); NEUTROPHILS % (MANUAL) 62 % (40-74); RBC MORPHOLOGY COMMENT NORMAL
[2019-01-02 13:18] LABS: ANISOCYTOSIS SLIG; POIKILOCYTOSIS SLIGHT
[2019-01-02 13:20] LABS: PLATELET ESTIMATE ADEQUATE; PLATELET MORPHOLOGY COMMENT NORMAL
[2019-01-02] MEDS: ACETAMINOPHEN 325 MG TAB PO PRN (14:58)
--- NOTE | 2019-01-02 19:11 | NUR ---
PATIENT IS IN STABLE CONDITION WITH NO S/S OF RESPIRATORY DISTRESS. NO PAIN VOICED. BED ALARM ON. CALL LIGHT IS WITHIN REACH, PATIENT INSTRUCTED TO CALL FOR ASSISTANCE NEEDED. BEDSIDE REPORT GIVEN TO ONCOMING NURSE.
[2019-01-03] VITALS: BP 134/67
[2019-01-03] MEDS: ACETAMINOPHEN 325 MG TAB PO PRN (00:19)
[2019-01-03 03:49] LABS: BASOPHILS # (AUTO) 0.1 (0.0-0.1); BASOPHILS % 0.7 % (0.0-1.0); EOSINOPHILS # (AUTO) 0.2 (0.0-0.4); EOSINOPHILS % 2.8 % (0.0-6.0); HEMATOCRIT 30.4 % (34.2-44.1); HEMOGLOBIN 9.4 g/dL (12.0-16.0); LYMPHOCYTES # (AUTO) 1.3 (1.0-3.2); LYMPHOCYTES % 15.1 % (18.0-39.1); MEAN CORPUSCULAR HEMOGLOBIN 32.4 pg (28-32); MEAN CORPUSCULAR HGB CONC 30.9 g/dL (31-35); MEAN CORPUSCULAR VOLUME 104.8 fL (81-99); MONOCYTES # (AUTO) 0.7 (0.2-0.8); MONOCYTES % 7.5 % (4.4-11.3); NEUTROPHILS # (AUTO) 5.8 (2.1-6.9); NEUTROPHILS % 67.4 % (38.7-80.0); PLATELET COUNT 208 x10e3/uL (140-360); RED CELL DISTRIBUTION WIDTH 18.9 % (11.7-14.4)
[2019-01-03 04:00] VITALS: BP 135/68
[2019-01-03 04:07] LABS: ANION GAP 19.5 mmol/L (8-16); CALCIUM 8.9 mg/dL (8.4-10.2); CREATININE, SERUM 4.48 mg/dL (0.57-1.11); MAGNESIUM 2.1 MG/DL (1.3-2.1); POTASSIUM 4.5 mmol/L (3.5-5.1)
[2019-01-03] MEDS: FAMOTIDINE 20 MG TAB PO SCH ×2 (07:30→17:04)
[2019-01-03] MEDS: INSULIN REGULAR, HUMAN 100 UNIT/1 ML 3ML VIAL SQ SCH ×3 (07:30→16:06)
--- NOTE | 2019-01-03 07:38 | NUR ---
The pt. is awake and visiting on the phone at bedside rounds. Side rails re up times 2 and the alarm is engaged. The pt. denies pin or discomfort at this time.
[2019-01-03 08:08] VITALS: BP 142/68
[2019-01-03] MEDS ORDERED: TRIAMCINOLONE A15 G3 TP (08:35)
[2019-01-03] MEDS ORDERED: VITAMIN B-121000 MCG PO (08:35)
[2019-01-03 08:50] VITALS: BP 124/74
--- NOTE | 2019-01-03 08:50 | NUR ---
The pt. was sitting in the bedside chair and dropped her call light to the floor. The pt. tried to reach the light and fell the floor hitting her head resulting in a small knot on the forehead. The PA was notified, ct scan was completed stat and the family notified. Addendum: 01/03/19 at 1027 by Larissa Segovia RN The pt." post fall vitals are as follows 97.2 95 20 180/81 98%O2 SAT.
[2019-01-03] MEDS: GABAPENTIN 300 MG CAP PO SCH ×2 (09:10→17:04)
[2019-01-03] MEDS: ASPIRIN 81 MG ENTERIC COATED PO SCH (09:10)
[2019-01-03] MEDS: LORATADINE 10 MG TAB PO SCH (09:10)
[2019-01-03] MEDS: NIFEDIPINE CR 30 MG TAB PO SCH (09:11)
[2019-01-03] MEDS: CYANOCOBALAMIN 1,000 MCG TAB PO SCH (09:11)
--- NOTE | 2019-01-03 10:29 | Diagnostic Imaging Report ---
History:Fall, seed left side of the head, headache Comparison studies:CT head 12/25/2018 Technique: Axial images were obtained from the skull base to the vertex. Coronal and sagittal images reconstructed from the axial data. Intravenous contrast: None Dose modulation, iterative reconstruction, and/or weight based adjustment of the mA/kV was utilized to reduce the radiation dose to as low as reasonably achievable. Findings: Scalp/skull: No abnormalities. Extra-axial spaces: No masses. No fluid collections. Brain sulci: Mildly prominent. Ventricles: Mild compensatory dilatation. No hydrocephalus. Parenchyma: Few hypodensities in the supratentorial white matter are small vessel ischemic changes. No masses, hemorrhage, acute or chronic cortical vascular insults. Sellar/suprasellar region: No abnormalities. Craniocervical junction: Patent foramen magnum. No Chiari one malformation. Incidental findings: Atherosclerotic calcifications in the carotid siphons . Stable left central frontal bone outer table small osteoma. Impression: No acute abnormalities. Chronic findings: 1. Mild generalized volume loss. 2. Mild supratentorial white matter small vessel ischemic changes. Signed by: DR Abimael Luong M.D. on 01/03/2019 10:26 AM
[2019-01-03 11:31] VITALS: BP 136/64
[2019-01-03] MEDS: CEFAZOLIN SOD 2 GM/D5W 50ML 50 ML IV SCH (11:52)
[2019-01-03] MEDS ORDERED: LIDOCAINE HCL 1% LOCAL INJ 20 ML VIAL ONE ×2 (12:08→13:03)
[2019-01-03] MEDS ORDERED: LIDOCAINE 2% /EPINEPHRINE 20 ML SDV INJ ONE (12:15)
[2019-01-03] MEDS ORDERED: SODIUM CHLORIDE 0.9% 500ML 500 ML ONE (12:25)
[2019-01-03] MEDS ORDERED: MIDAZOLAM HCL 2 MG/2 ML VIAL ONE (12:40)
[2019-01-03] MEDS ORDERED: FENTANYL CITRATE/PF 100MCG/2 ML INJ ONE (12:41)
[2019-01-03] MEDS ORDERED: HEPARIN SOD (PORCINE) 1000 UNIT/ML SDV ONE (12:41)
[2019-01-03] MEDS ORDERED: SODIUM CHLORIDE 0.9% 250ML 250 ML ONE (13:03)
--- NOTE | 2019-01-03 14:10 | NUR ---
The pt. returned to the unit form interventional radio;ogy post placement of tunnelled cath. The dialysis nurse is here to treat the pt.at this time.
--- NOTE | 2019-01-03 14:56 | Diagnostic Imaging Report ---
Date and Time: 01/03/2019 Procedure: 1. Right internal jugular tunneled hemodialysis catheter placement 2. 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 The patient's heart rate and pulse oximetry were continuously monitored by the interventional radiology nurse. Blood pressure was monitored at 5 minute intervals. Total intraservice time for sedation: 45 minutes Additional Medications: Lidocaine 1% for local anesthesia Fluoroscopy time: 2.8 minutes Dose-area Product: 3.14 Gycm2. Contrast used: 0 Estimated blood loss: Less than 20 cc Blood products administered: None Specimens: Left internal jugular Trialysis catheter, discarded Implants: 16 [place], 19 cm tip-cuff tunneled hemodialysis catheter Condition at completion: Stable Disposition: Returned to floor DISCUSSION: Informed consent for the procedure was obtained from the patient after discussion of risks and benefits. Preliminary sonographic evaluation showed partial occlusion of the right internal jugular vein peripherally, with patent right internal jugular vein centrally. The right neck and upper chest was prepped and draped in the standard sterile fashion after the patient was placed in the supine position on the fluoroscopic table. 1% lidocaine was administered into the skin and subcutaneous tissues of the right lower neck for local anesthesia. Then, under continuous sonographic guidance, a 21-gauge micropuncture needle was advanced into the right internal jugular vein. A permanent sonographic image was stored in the medical record. A 0.018 inch wire was advanced centrally under fluoroscopic guidance. The needle was then removed and access was secured with a micropuncture sheath. Intravascular length to the upper right atrium was determined using the microwire, which was then removed along with the inner dilator of the micropuncture sheath. A 0.035 inch Amplatz Super Stiff wire was then advanced through the micropuncture sheath into the inferior vena cava under fluoroscopic guidance. Attention was then turned to the right upper chest. A suitable catheter exit site was determined, approximately 2 fingerbreadths inferior to the clavicle. The skin was marked. 1% lidocaine with epinephrine was used to anesthetize a subcutaneous tract extending from the planned catheter exit site to the venotomy at the right lower neck. A stab incision was made on the right upper chest. Subsequently, the catheter was tunneled from the exit site of the right upper chest to the venotomy at the right lower neck. The retention cuff of the catheter was advanced well into the subcutaneous tunnel. The micropuncture sheath was then removed over the wire and the tract was serially dilated. Finally, a 16.5-[place] Lucian peel-away sheath was advanced over the wire under fluoroscopic guidance. The wire and inner dilator of the sheath were removed and the catheter was advanced through the peel-away sheath, which was then broken and removed. The catheter tip was positioned in the upper right atrium. Each catheter lumen showed good bidirectional flow. Each lumen was then packed with 2000 units of heparin. The catheter was secured at the exit site on the right upper chest with monofilament nylon suture. The venotomy at the right lower neck was closed with tissue adhesive. A sterile dressing was applied. The patient tolerated the procedure well without immediate complication. Attention was then turned to the left neck. The dressing for the temporary left internal jugular hemodialysis catheter was removed and retention sutures were cut. The catheter was then removed in total and hemostasis was achieved with manual compression. A sterile dressing was applied. Impression: Successful placement of a tunneled dual-lumen hemodialysis catheter (16-St Lucian, 19-cm tip-cuff length) by a right internal jugular approach, followed by removal of left internal jugular temporary hemodialysis catheter Signed by: Dr. Douglas Jay M.D. on 01/03/2019 2:53 PM
--- NOTE | 2019-01-03 14:56 | Diagnostic Imaging Report ---
Date and Time: 01/03/2019 Procedure: 1. Right internal jugular tunneled hemodialysis catheter placement 2. 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 The patient's heart rate and pulse oximetry were continuously monitored by the interventional radiology nurse. Blood pressure was monitored at 5 minute intervals. Total intraservice time for sedation: 45 minutes Additional Medications: Lidocaine 1% for local anesthesia Fluoroscopy time: 2.8 minutes Dose-area Product: 3.14 Gycm2. Contrast used: 0 Estimated blood loss: Less than 20 cc Blood products administered: None Specimens: Left internal jugular Trialysis catheter, discarded Implants: 16 [place]ese, 19 cm tip-cuff tunneled hemodialysis catheter Condition at completion: Stable Disposition: Returned to floor DISCUSSION: Informed consent for the procedure was obtained from the patient after discussion of risks and benefits. Preliminary sonographic evaluation showed partial occlusion of the right internal jugular vein peripherally, with patent right internal jugular vein centrally. The right neck and upper chest was prepped and draped in the standard sterile fashion after the patient was placed in the supine position on the fluoroscopic table. 1% lidocaine was administered into the skin and subcutaneous tissues of the right lower neck for local anesthesia. Then, under continuous sonographic guidance, a 21-gauge micropuncture needle was advanced into the right internal jugular vein. A permanent sonographic image was stored in the medical record. A 0.018 inch wire was advanced centrally under fluoroscopic guidance. The needle was then removed and access was secured with a micropuncture sheath. Intravascular length to the upper right atrium was determined using the microwire, which was then removed along with the inner dilator of the micropuncture sheath. A 0.035 inch Amplatz Super Stiff wire was then advanced through the micropuncture sheath into the inferior vena cava under fluoroscopic guidance. Attention was then turned to the right upper chest. A suitable catheter exit site was determined, approximately 2 fingerbreadths inferior to the clavicle. The skin was marked. 1% lidocaine with epinephrine was used to anesthetize a subcutaneous tract extending from the planned catheter exit site to the venotomy at the right lower neck. A stab incision was made on the right upper chest. Subsequently, the catheter was tunneled from the exit site of the right upper chest to the venotomy at the right lower neck. The retention cuff of the catheter was advanced well into the subcutaneous tunnel. The micropuncture sheath was then removed over the wire and the tract was serially dilated. Finally, a 16.5-Marshallese peel-away sheath was advanced over the wire under fluoroscopic guidance. The wire and inner dilator of the sheath were removed and the catheter was advanced through the peel-away sheath, which was then broken and removed. The catheter tip was positioned in the upper right atrium. Each catheter lumen showed good bidirectional flow. Each lumen was then packed with 2000 units of heparin. The catheter was secured at the exit site on the right upper chest with monofilament nylon suture. The venotomy at the right lower neck was closed with tissue adhesive. A sterile dressing was applied. The patient tolerated the procedure well without immediate complication. Attention was then turned to the left neck. The dressing for the temporary left internal jugular hemodialysis catheter was removed and retention sutures were cut. The catheter was then removed in total and hemostasis was achieved with manual compression. A sterile dressing was applied. Impression: Successful placement of a tunneled dual-lumen hemodialysis catheter (16-Marshallese, 19-cm tip-cuff length) by a right internal jugular approach, followed by removal of left internal jugular temporary hemodialysis catheter Signed by: Dr. Douglas Jay M.D. on 01/03/2019 2:53 PM
[2019-01-03 15:40] VITALS: BP 135/66
--- NOTE | 2019-01-03 16:24 | NUR ---
ORDERS TO ARRANGE IV CEFAZOLIN 2GM WITH EACH HEMODIALYSIS X 3 DOSES TO BE ADMINISTERED AT THE DIALYSIS CENTER CM CALLED [facility] AND SPOKE WITH DAVID FAXED ORDERS FOR IV ABX TO [phone] CONFIRMATION REC'D COPY OF IV ABX ORDER ALSO GIVEN TO PT'S DTR AT BEDSIDE TO TAKE WITH PT TO DIALYSIS ON SUNDAY
[2019-01-03] MEDS ORDERED: CEFAZOLIN1 GM/50 ML IVP (16:34)
[2019-01-03] MEDS ORDERED: HEPARIN SOD (PORCINE) 1000 UNIT/ML SDV IV PRN (17:15)
--- NOTE | 2019-01-03 17:22 | NUR ---
The pt. is to discharge home post dialysis and follow up outpt. with dialysis with antibiotic times 3 doses with dialysis.
--- NOTE | 2019-01-03 19:00 | NUR ---
Completed bedside rounds with morning nurse. Dialysis completed, BP 124/82, dialyzed 2L. Temp cath port left upper chest drsg C/D/I. Pt alert and orient to name, place, and situation. Denies pain at this time. Call fields within reach. Will continue to monitor.
--- NOTE | 2019-01-03 19:00 | Progress Note ---
DATE: 01/03/2019 SUBJECTIVE: Eager to go home, but still has a tunneled catheter. Awaiting clearance from Infectious Disease service to see if we can change the non-tunneled to a tunneled catheter. OBJECTIVE: VITAL SIGNS: Temperature 96.3, pulse 98, blood pressure 135/66. CHEST: Clear at this time. EXTREMITIES: No edema. NECK: Left IJ catheter. LABORATORY DATA: Hemoglobin is 9.4. K is 4.5, creatinine 4.5, BUN 48. ASSESSMENT: 1. End-stage renal disease. 2. Diabetic end-organ damage. 3. MSSA bacteremia. 4. Anemia of chronic kidney disease, status post erythropoietic stimulating agent in the hospital. 5. Hypertension is reasonable as is volume status. PLAN: 1. Hemodialysis today 4 hour run. 2. Potassium bath, try to remove 2 L to 3 L of fluid. Keep up with protein supplements. We will follow along. Please see orders for further details MD COREEN PuckettK/MODL /[id number]
--- NOTE | 2019-01-03 19:27 | NUR ---
D/C'd in w/c to home with family in private vehicle. Pt alert and orient to name, place, and situation. "I'm, ready to go home". Denies pain at this time. Removed 20g IV right FA, pt tolerated well. D/C instructions given and prescriptions. Pt verbalized understanding to f/u with provider. BP 130/64.
--- NOTE | 2019-01-03 21:08 | Diagnostic Imaging Report ---
PROCEDURE:NON TUNN CVC /DIALYSIS CATH PL COMPARISON:None. INDICATIONS:Patient had a hemodialysis catheter removed because of potential infection. She still needs dialysis. FINDINGS:Attempts were made to place a right IJ temporary hemodialysis catheter. The right IJ is occluded. Attention was directed to the left internal jugular vein. Puncture with a 21 gauge skinny needle was accomplished after local anesthesia with 1% lidocaine. Through the skinny needle a 0.018 inch wire was then placed. A micropuncture sheath was placed over the wire. Through the micropuncture sheath a 0.035 inch Amplatz Super Stiff wire was placed into the IVC. Serial dilatation was accomplished. A 13 [place] 20 cm long Bard Trialysis was then placed over the wire. Catheter tip noted at the cavoatrial junction. All 3 lumens easily flush and aspirate. Catheter was secured to the skin with 3-0 Ethilon.. The line is appropriate for immediate use. CONCLUSION: 1. Right internal jugular vein is occluded. 2. Left IJ temporary hemodialysis catheter was placed with ultrasound and fluoroscopic guidance. Stalin Harris D.O. Dictated by: Stalin Harris D.O. on 01/03/2019 at 21:10 Electronically approved by: Stalin Harris D.O. on 01/03/2019 at 21:10
--- NOTE | 2019-01-04 13:29 | Discharge Summary ---
ADMISSION DIAGNOSES: Sepsis, AMS, end-stage renal disease, hypertension, type 2 diabetes, neuropathy, gastroesophageal reflux disease, anemia, and history of scabies. DISCHARGE DIAGNOSES: Sepsis, AMS, end-stage renal disease, hypertension, type 2 diabetes, neuropathy, gastroesophageal reflux disease, anemia, history of scabies, and bacteremia with sepsis present on admission. HISTORY: The patient has a history of end-stage renal disease, type 2 diabetes, hypertension, peripheral neuropathy, GERD, and TIA. SURGICAL HISTORY: Left partial nephrectomy, hysterectomy, left arm AV fistula placement, and bilateral carpal tunnel release. FAMILY HISTORY: The patient's brother and sister both have cancer. SOCIAL HISTORY: The patient admits to smoking 1 pack of cigarettes a week. HOSPITAL COURSE: A 73-year-old female with history of end-stage renal disease, admits after going to dialysis yesterday, she had an AMS and temp of 103, they did not perform dialysis and sent her to the ER. She complains of white phlegm for 2 weeks. She denies fever, shortness of breath, dysuria, or congestion. She was being treated for scabies outpatient and her last antibiotics were given on 12/15 per her son. On admission, the patient's white count was 13. Chest x-ray showed no acute abnormality. CT of the brain showed no acute abnormality. Blood cultures came back positive for Staph. Repeat chest x-ray on 12/26 showed mild central venous congestion and then three days later, the chest x-ray showed right lower lobe consolidation concerning for pneumonia. She then had a bedside swallow eval and MBS per Speech Therapy recommendation that showed no evidence of laryngeal penetration or aspiration. Dr. lOvera was consulted for the history of scabies, he started her on Kenalog. He says that the rash that she is experiencing is probably related to a drug allergy, less likely related to the scabies. Due to the bacteremia, the patient had her dialysis catheter removed and the catheter tip was sent for culture and was negative, so she had a temporary catheter placed, while we waited for the cultures to come back. When all cultures were negative, she then had a PermCath placed. The patient will discharge home with vitamin B12 and Kenalog. She will have just three more days of IV antibiotics with dialysis per Infectious Disease recommendation. She will follow up with primary care in 1 to 2 weeks and Nephrology and Infectious Disease as discussed. The patient is doing much better and is ready to discharge home. Vital signs stable. The patient is afebrile. Dictated by Klarissa Santillan, LEXIS MD VICTORIA [place]/MODL /[id number]
== END 2019-01-03 19:27 | disposition home or self-care (01) | DRG 252 ==
LOC: FSED 18:02 → ICU 21:10 → MED/SURG3 12-26 22:09
PROVIDERS: ADMIT Internal Medicine; ATTEND Internal Medicine
PROC: 5A1D70Z Performance of Urinary Filtration, Intermittent, Less than 6 Hours Per Day (ICD-10-PCS; 2018-12-25)
PROC: 5A1D70Z Performance of Urinary Filtration, Intermittent, Less than 6 Hours Per Day (ICD-10-PCS; 2018-12-27)
PROC: 5A1D70Z Performance of Urinary Filtration, Intermittent, Less than 6 Hours Per Day (ICD-10-PCS; 2018-12-30)
PROC: 5A1D70Z Performance of Urinary Filtration, Intermittent, Less than 6 Hours Per Day (ICD-10-PCS; 2019-01-01)
PROC: 5A1D70Z Performance of Urinary Filtration, Intermittent, Less than 6 Hours Per Day (ICD-10-PCS; 2019-01-01)
PROC: 05PY03Z Removal of Infusion Device from Upper Vein, Open Approach (ICD-10-PCS; 2019-01-02)
PROC: 5A1D70Z Performance of Urinary Filtration, Intermittent, Less than 6 Hours Per Day (ICD-10-PCS; principal; 2019-01-03)
PROC: 0JH63XZ Insertion of Tunneled Vascular Access Device into Chest Subcutaneous Tissue and Fascia, Percutaneous Approach (ICD-10-PCS; 2019-01-03)
PROC: 02HV33Z Insertion of Infusion Device into Superior Vena Cava, Percutaneous Approach (ICD-10-PCS; 2019-01-03)
PROC: 5A1D70Z Performance of Urinary Filtration, Intermittent, Less than 6 Hours Per Day (ICD-10-PCS; 2019-01-03)
DX: T82.7XXA Infection and inflammatory reaction due to other cardiac and vascular devices, implants and grafts, initial encounter (principal); N18.6 End stage renal disease; A41.01 Sepsis due to Methicillin susceptible Staphylococcus aureus; J18.9 Pneumonia, unspecified organism; I12.0 Hypertensive chronic kidney disease with stage 5 chronic kidney disease or end stage renal disease; E87.2 Acidosis; E11.22 Type 2 diabetes mellitus with diabetic chronic kidney disease; Z99.2 Dependence on renal dialysis; Z79.4 Long term (current) use of insulin; E11.40 Type 2 diabetes mellitus with diabetic neuropathy, unspecified; Z90.5 Acquired absence of kidney; L29.8 Other pruritus; D63.1 Anemia in chronic kidney disease; E11.21 Type 2 diabetes mellitus with diabetic nephropathy; E87.6 Hypokalemia; D51.3 Other dietary vitamin B12 deficiency anemia; E87.5 Hyperkalemia; L27.1 Localized skin eruption due to drugs and medicaments taken internally; T50.905A Adverse effect of unspecified drugs, medicaments and biological substances, initial encounter; F17.210 Nicotine dependence, cigarettes, uncomplicated
CPT/HCPCS: 36415; 36556; 36558; 36589; 51700; 70450; 71045; 74230; 74470; 76937; 80048; 80053; 81001; 81003; 82140; 82553; 82607; 82728; 82746; 82947; 82948; 83036; 83540; 83605; 83735; 83880; 84100; 84466; 84484; 85025; 85610; 85730; 86704; 86705; 86707; 87040; 87070; 87071; 87086; 87186; 87205; 87340; 87400; 90962; 93005; 93306; 99284; C1769; J0610; J0690; J0696; J1644; J1817; J2001; J2250; J2270; J2405; J3010; J3370; J3475; J7030; J7040; J7050; J7799

== ENCOUNTER 2020-09-01 18:30 | Emergency (ER) | payer MEDICARE ==
[~2020-09-01 18:30] MED LIST changes: +CEFAZOLIN1 GM/50 ML IVP; +TRIAMCINOLONE A15 G3 TP; +VITAMIN B-121000 MCG PO
[2020-09-01] MEDS ORDERED: SODIUM CHLORIDE 0.9% 1000ML 1,000 ML IV STA (19:00)
[2020-09-01] MEDS ORDERED: SODIUM CHLORIDE 0.9% 1000ML 1,000 ML ONE (19:17)
[2020-09-01] MEDS ORDERED: ANUSOL-HC25 MG RC (21:24)
[2020-09-01] MEDS ORDERED: GOLYTELY SOLU4000 ML PO (21:24)
[2020-09-01 21:33] VITALS: BP 156/68
== END 2020-09-01 21:33 | disposition home or self-care (01) ==
LOC: FSED 19:00
DX: K62.89 Other specified diseases of anus and rectum (principal); K59.00 Constipation, unspecified; R10.9 Unspecified abdominal pain; I12.9 Hypertensive chronic kidney disease with stage 1 through stage 4 chronic kidney disease, or unspecified chronic kidney disease; E11.22 Type 2 diabetes mellitus with diabetic chronic kidney disease; N18.9 Chronic kidney disease, unspecified; Z99.2 Dependence on renal dialysis
CPT/HCPCS: 74176; 80048; 80076; 85025; 99284; J7030

== ENCOUNTER → 2021-12-13 | Outpatient (CLI) | payer MEDICARE ==
[~2021-12-13] MED LIST changes: +ANUSOL-HC25 MG RC; +GOLYTELY SOLU4000 ML PO
== END ==
LOC: CT 13:55
PROVIDERS: ATTEND Internal Medicine
DX: Z13.6 Encounter for screening for cardiovascular disorders (principal); R68.89 Other general symptoms and signs
CPT/HCPCS: 70450

== ENCOUNTER 2022-01-30 13:48 | Inpatient (IN) | payer MEDICARE, OTHER ==
[~2022-01-30] VITALS: Ht 154.9 cm; Wt 68.0 kg
[2022-01-30 15:04] LABS: BASOPHILS # (AUTO) 0.1 (0.0-0.1); BASOPHILS % 0.5 % (0.0-1.0); EOSINOPHILS # (AUTO) 0.1 (0.0-0.4); EOSINOPHILS % 1.2 % (0.0-6.0); HEMATOCRIT 30.7 % (34.2-44.1); HEMOGLOBIN 9.7 g/dL (12.0-16.0); LYMPHOCYTES # (AUTO) 0.8 (1.0-3.2); LYMPHOCYTES % 7.6 % (18.0-39.1); MEAN CORPUSCULAR HGB CONC 31.6 g/dL (31-35); MEAN CORPUSCULAR VOLUME 104.4 fL (81-99); MONOCYTES # (AUTO) 0.4 (0.2-0.8); MONOCYTES % 4.1 % (4.4-11.3); NEUTROPHILS # (AUTO) 8.6 (2.1-6.9); PLATELET COUNT 139 x10e3/uL (140-360); RED BLOOD COUNT 2.94 x10e6/uL (3.6-5.1)
[2022-01-30 15:21] LABS: INR 0.94; PARTIAL THROMBOPLASTIN TIME 36.8 seconds (23.8-35.5); PROTHROMBIN TIME 13.4 seconds (11.9-14.5)
[2022-01-30 15:27] LABS: ALBUMIN 3.5 g/dL (3.5-5.0); ALBUMIN/GLOBULIN RATIO 1.2 (0.8-2.0); ANION GAP 16.4 mmol/L (8-16); CREATININE, SERUM 5.19 mg/dL (0.57-1.11); POTASSIUM 4.4 mmol/L (3.5-5.1)
[2022-01-30 15:33] LABS: CREATINE KINASE MB 3.1 ng/mL (0-5.0)
[2022-01-30] MEDS ORDERED: SODIUM CHLORIDE FLUSH 10 ML SYR INJ PRN (17:30)
[2022-01-30] MEDS ORDERED: ONDANSETRON HCL INJ 2MG/ML 2ML 2 MG/ML VIAL IV PRN (17:30)
[2022-01-30 20:16] VITALS: BP 174/90
[2022-01-30] MEDS ORDERED: LIPITOR20 MG PO (20:50)
[2022-01-30 20:55] VITALS: BP 174/90
[2022-01-30 21:00] VITALS: BP 174/90
[2022-01-30] MEDS: DILTIAZEM HCL 30 MG TAB PO SCH (22:15)
[2022-01-31] VITALS (9 sets, daily range): BP systolic 98–151; BP diastolic 53–90
[2022-01-31 02:29] LABS: CREATINE KINASE MB 3.9 ng/mL (0-5.0)
[2022-01-31 05:49] LABS: BASOPHILS % 0.4 % (0.0-1.0); EOSINOPHILS # (AUTO) 0.1 (0.0-0.4); EOSINOPHILS % 1.4 % (0.0-6.0); HEMATOCRIT 28.3 % (34.2-44.1); LYMPHOCYTES # (AUTO) 1.5 (1.0-3.2); LYMPHOCYTES % 15.5 % (18.0-39.1); MEAN CORPUSCULAR HEMOGLOBIN 33.1 pg (28-32); MEAN CORPUSCULAR HGB CONC 31.8 g/dL (31-35); MONOCYTES # (AUTO) 0.5 (0.2-0.8); MONOCYTES % 5.3 % (4.4-11.3); NEUTROPHILS # (AUTO) 7.2 (2.1-6.9); NEUTROPHILS % 75.9 % (38.7-80.0); PLATELET COUNT 134 x10e3/uL (140-360); RED BLOOD COUNT 2.72 x10e6/uL (3.6-5.1); RED CELL DISTRIBUTION WIDTH 15.7 % (11.7-14.4)
[2022-01-31 06:09] LABS: ALBUMIN 3.3 g/dL (3.5-5.0); ALBUMIN/GLOBULIN RATIO 1.2 (0.8-2.0); ANION GAP 16.7 mmol/L (8-16); CALCIUM 8.6 mg/dL (8.4-10.2); CREATININE, SERUM 5.66 mg/dL (0.57-1.11); POTASSIUM 4.7 mmol/L (3.5-5.1)
[2022-01-31] MEDS: DILTIAZEM HCL 30 MG TAB PO SCH (07:30)
[2022-01-31] MEDS ORDERED: HYDRALAZINE HCL 20 MG/ML VIAL IV STA (08:25)
[2022-01-31] MEDS ORDERED: NITROGLYCERIN 2% OINT 1 GM PKT ONE (08:38)
[2022-01-31] MEDS ORDERED: HYDRALAZINE HCL 20 MG/ML VIAL ONE (08:38)
[2022-01-31] MEDS ORDERED: SODIUM CHLORIDE 0.9% 1000ML 2,000 ML ONE (09:55)
[2022-01-31 10:53] LABS: CLARITY,URINE CLOUDY (CLEAR); COLOR,URINE YELLOW (YELLOW); KETONES,URINE NEGATIVE (NEGATIVE); LEUKOCYTE ESTERASE ,URINE LARGE (NEGATIVE); NITRITE,URINE NEGATIVE (NEGATIVE); PROTEIN,URINE DIPSTICK >=300 (NEGATIVE); URINE UROBILINOGEN 0.2 mg/dL (0.2 - 1)
[2022-01-31 10:59] LABS: BACTERIA,URINE MODERATE /HPF; EPITHELIAL CELLS,URINE MANY /LPF; TRANSITIONAL EPI CELLS,URINE MODERATE; WBC,URINE (MAN) 21-50 /HPF (0-5)
[2022-01-31 11:01] LABS: CREATINE KINASE MB 4.1 ng/mL (0-5.0)
[2022-01-31] MEDS ORDERED: HYDRALAZINE HCL 20 MG/ML VIAL IV PRN (12:30)
[2022-01-31] MEDS ORDERED: DIPHENHYDRAMINE HCL 25 MG CAP PO PRN (12:30)
[2022-01-31] MEDS ORDERED: PEG (High)/E-LYTE SOLN 4,000 ML BTL PO SCH (12:30)
[2022-01-31 13:33] LABS: CREATINE KINASE MB 4.8 ng/mL (0-5.0)
[2022-01-31] MEDS ORDERED: DEXTROSE 50% SYRINGE 50 ML IV PRN (13:45)
[2022-01-31] MEDS ORDERED: INSULIN LISPRO 100 UNIT/1 ML 3ML VIAL SQ SCH (16:30)
[2022-01-31] MEDS: INSULIN REGULAR, HUMAN 100 UNIT/1 ML SQ SCH ×2 (16:30→22:34)
[2022-01-31] MEDS ORDERED: INSULIN REGULAR, HUMAN 100 UNIT/1 ML SQ SCH (16:30)
[2022-01-31] MEDS ORDERED: HYDROCORTISONE ACETATE 25 MG/SUPP.RECT SUPP RC SCH (17:00)
[2022-01-31] MEDS: ATORVASTATIN 40 MG TAB PO SCH (22:20)
[2022-01-31] MEDS: HYDRALAZINE HCL 25 MG TAB PO SCH (22:20)
[2022-01-31] MEDS: GABAPENTIN 300 MG CAP PO SCH (22:21)
[2022-01-31] MEDS: CLONIDINE HCL 0.2 MG TAB PO SCH (22:21)
[2022-01-31] MEDS: NIFEDIPINE CR 30 MG TAB PO SCH (22:22)
[2022-01-31] MEDS ORDERED: SODIUM CHLORIDE 0.9% 250ML 250 ML ONE (22:23)
[2022-01-31] MEDS: TRIAMCINOLONE 0.1% OINTMENT 15 GM TUBE TP SCH (22:35)
[2022-02-01] VITALS (7 sets, daily range): BP systolic 97–139; BP diastolic 63–72
[2022-02-01] MEDS: INSULIN REGULAR, HUMAN 100 UNIT/1 ML SQ SCH ×4 (07:30→20:53)
[2022-02-01] MEDS: PANTOPRAZOLE SOD 40 MG TABEC PO SCH (08:30)
[2022-02-01] MEDS: ASPIRIN 81 MG CHEW TAB PO SCH (08:48)
[2022-02-01] MEDS: HYDRALAZINE HCL 25 MG TAB PO SCH ×3 (08:49→20:46)
[2022-02-01] MEDS: CYANOCOBALAMIN 1,000 MCG TAB PO SCH (08:49)
[2022-02-01] MEDS: CLONIDINE HCL 0.2 MG TAB PO SCH (08:52)
[2022-02-01] MEDS: NIFEDIPINE CR 30 MG TAB PO SCH ×3 (08:53→20:44)
[2022-02-01] MEDS: TRIAMCINOLONE 0.1% OINTMENT 15 GM TUBE TP SCH ×2 (08:53→20:52)
[2022-02-01] MEDS: GABAPENTIN 300 MG CAP PO SCH ×2 (08:53→20:45)
[2022-02-01] MEDS ORDERED: NIFEDIPINE CR 30 MG TAB PO SCH (09:00)
[2022-02-01] MEDS ORDERED: ONDANSETRON HCL 4 MG ORAL DISINTEGRATING TAB PO PRN (09:30)
[2022-02-01] MEDS ORDERED: CLONIDINE HCL 0.2 MG TAB PO PRN (09:45)
[2022-02-01] MEDS: ATORVASTATIN 40 MG TAB PO SCH (20:45)
[2022-02-02 00:28] VITALS: BP 119/63
[2022-02-02 04:00] VITALS: BP 116/60
[2022-02-02 05:26] LABS: CALCIUM 8.2 mg/dL (8.4-10.2); CREATININE, SERUM 4.8 mg/dL (0.57-1.11)
[2022-02-02] MEDS ORDERED: SODIUM CHLORIDE 0.9% 1000ML 2,000 ML ONE (06:52)
[2022-02-02] MEDS: INSULIN REGULAR, HUMAN 100 UNIT/1 ML SQ SCH ×2 (07:30→11:30)
[2022-02-02 08:05] VITALS: BP 122/69
[2022-02-02] MEDS: NIFEDIPINE CR 30 MG TAB PO SCH (09:00)
[2022-02-02] MEDS: PANTOPRAZOLE SOD 40 MG TABEC PO SCH (09:13)
[2022-02-02] MEDS: ASPIRIN 81 MG CHEW TAB PO SCH (09:13)
[2022-02-02] MEDS: CYANOCOBALAMIN 1,000 MCG TAB PO SCH (09:14)
[2022-02-02] MEDS: GABAPENTIN 300 MG CAP PO SCH (09:14)
[2022-02-02] MEDS: HYDRALAZINE HCL 25 MG TAB PO SCH (09:15)
[2022-02-02] MEDS: TRIAMCINOLONE 0.1% OINTMENT 15 GM TUBE TP SCH (12:25)
[2022-02-02 12:44] VITALS: BP 115/71
== END 2022-02-02 16:02 | disposition home or self-care (01) | DRG 291 ==
LOC: ER 14:32 → INTOOBSV 14:33 → ERHOLD 14:33 → OBSVTOIN 14:33 → MED/SURG 20:18
PROVIDERS: ADMIT Internal Medicine; ATTEND Internal Medicine
PROC: 5A1D70Z Performance of Urinary Filtration, Intermittent, Less than 6 Hours Per Day (ICD-10-PCS; principal; 2022-01-31)
DX: I13.2 Hypertensive heart and chronic kidney disease with heart failure and with stage 5 chronic kidney disease, or end stage renal disease (principal); I50.23 Acute on chronic systolic (congestive) heart failure; N18.6 End stage renal disease; I16.1 Hypertensive emergency; G93.40 Encephalopathy, unspecified; E87.1 Hypo-osmolality and hyponatremia; E11.22 Type 2 diabetes mellitus with diabetic chronic kidney disease; Z99.2 Dependence on renal dialysis; Z79.899 Other long term (current) drug therapy; D63.1 Anemia in chronic kidney disease; E66.9 Obesity, unspecified; Z68.28 Body mass index [BMI] 28.0-28.9, adult; Z88.2 Allergy status to sulfonamides; Z88.8 Allergy status to other drugs, medicaments and biological substances; Z86.73 Personal history of transient ischemic attack (TIA), and cerebral infarction without residual deficits; S00.03XA Contusion of scalp, initial encounter; W19.XXXA Unspecified fall, initial encounter; Y92.538 Other ambulatory health services establishments as the place of occurrence of the external cause; K21.9 Gastro-esophageal reflux disease without esophagitis; M19.90 Unspecified osteoarthritis, unspecified site; Z90.5 Acquired absence of kidney; E11.65 Type 2 diabetes mellitus with hyperglycemia; D69.6 Thrombocytopenia, unspecified; Z20.822 Contact with and (suspected) exposure to COVID-19
CPT/HCPCS: 36415; 70450; 71045; 74230; 80053; 81001; 82550; 82553; 82948; 83735; 83880; 84484; 85025; 85610; 85730; 86705; 86706; 87340; 93005; 94799; 99251; 99284; J0360; J1817; J2543; J7030; J7050